=== PATIENT | male | born 1950 | race Caucasian/White ===

== ENCOUNTER 2020-07-11 10:55 | Emergency (ER) | payer OTHER, SELFPAY ==
[2020-07-11 10:55] VITALS: BP 178/96; PULSE 86; RESP 18; TEMP 36; O2SAT 96; BMI 21.5
[2020-07-11 11:55] VITALS: RESP 15
--- NOTE | 2020-07-11 12:08 | ED.VISSUMM ---
- ER Visit Summary Date of Service: 07/11/20 Chief Complaint: Agitated History of Present Illness: The patient is a 70 M who goes to the [place] [facility]. He has a history of schizophrenia and bipolar disorder. Patient reports that he is overtired and not sleeping well. He has been fighting with his . He denies any suicidal or homicidal ideation. No auditory visual hallucinations. Review of systems: General: No fever, chills, cold sweats. Cardiovascular: No chest pain, palpitations. Respiratory: No cough, shortness of breath, dyspnea on exertion. Gastrointestinal: No abdominal pain, nausea, vomiting, diarrhea, melena, or hematochezia. Genitourinary: No dysuria, frequency, hematuria. Skin: No rash. Neuro: No headache, numbness, weakness. Physical Examination: Vitals: Stable. Afebrile. General: Well-nourished and well-developed. Head: Normocephalic atraumatic. Neck: Supple, no lymphadenopathy. No JVD. Nontender. Cardiovascular: Regular rate and rhythm. No murmurs. Respiratory: No respiratory distress. Clear to auscultation bilaterally. Abdominal: Soft, nontender, nondistended, normal bowel sounds. No guarding, rebound, or peritoneal signs. Back: Nontender. Extremities: Nontender, no edema. Skin: Normal color, no rash. Neurologic: Alert and oriented ?3. Cranial nerves II through XII are intact. Normal strength and sensation. Mental status exam: Patient appears their stated age. Good posture and grooming. Good eye contact. Normal rate, volume, and latency of speech. No suicidal or homicidal ideation. No auditory or visual hallucinations. Flow of thought is logical. Insight and judgment is fair. Emergency Department Course and Treatment: Patient is resting comfortably and has eaten while here. He was seen by case management and they contacted his as well as his nurse through the [place]. There is no indication for pink slip and the patient would like to go home. Treatment Plan: Patient be discharged instructions to take his medicines as prescribed. Follow-up with his primary care physician as needed. Return to the emergency department for any worsening symptoms. Disposition: To home in improved and stable condition. Impression: One. Bipolar disorder. 2. Schizophrenia. This note was generated with [employer] software. It may contain incorrect words, spelling, and punctuation that were not noted in review of the chart prior to signing ED Disposition - Plan for ED Patient: Instructions: ED Depression [facility]: [facility] [Primary [facility] Provider] - As Needed
--- NOTE | 2020-07-11 12:13 | CM.ED ---
Social Work Consult: Depression Informant: Dr. Oliva Chief Complaint: my and I fight all the time. Marital/Social History: to Nay Bains for the past 37 years. Has an adult son, Jaxon Bains. Living Situation: Lives with spouse and Jaxon Mendoza Support/Resources: Active with [facility] for mental health services. Dr. Dubon is patient psychiatrist. Patient mental health nurse is Ham. Education/Employment History: Retired. Denies any issues with comprehension or understanding. 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 Honorable discharge. 100% services connected. Mental Health Treatment/History: Schizophrenia. Reports to take medication to manage mental health. Patient reports to be compliant with medication. Patient spouse reports concerns that patient is taking medication. Patient reports history of inpatient psychiatric placement with last psychiatric placement being years ago. Triggers/Stressors: Patient reports that patient spouse gets me worked up. Patient states to also get frustrated with patient son. Patient spouse recently diagnosed with cancer and reportedly has 2 years to live. Substance Abuse/use: Reports daily tobacco use (1 ppd) and daily alcohol us 2-3 beers daily. Patient denies any other substance abuse/use. Risk to Self/Othes: Patient denies suicidal thoughts, plans, intents. Patient denies any history of suicidal ideation or harm to self. Patient denies any thoughts, plans or intents to harm others. Mental Status Exam: A&Ox3 Appearance/General Behavior: Appropriate. Clean. Anxious. Directable. Mood/Affect: Anxious. Patient declined to sit down as I am nervous about what is going to happen. Communication Pattern: Responds to questions. Initiates conversation. Thought Process: Denies any V/A hallucinations or paranoia. Judgement: Fair Assessment: Met with patient in room. Introduced self and social worker health services role. Patient agreeable to speak with this social worker health services. Patient brought by police to emergency room today for mental health evaluation due to patient son reporting that patient has not been taking patient medication. Patient reports to be taking medication and to be doing fine. Patient denies any current concerns for patient ability to care for self. Patient is agreeable to this social worker health services speaking with patient spouse but in the presence of patient. Patient calling patient spouse, Nay on phone and putting Nay on speaker phone. Nay voiced concerns that patient is not taking medication and getting frustrated. Nay denies any harm to self or others in the home by patient. Nay confirms that patient is connected with community resources for mental health and that there has been a recent change in patient medication. Nay reports [facility] and was advised to have patient brought to the ED for an evaluation as per Nay patient has not been sleeping or eating. Patient currently eating and drinking a sandwich in patient room. Patient is agreeable to this social worker health services calling patient nurse, Ham through the [place]. This social worker health services did note that patient did become more agitated when speaking with Nay but was able to control self and maintain appropriate conversation with this social worker health services and Nay. Telephone call to Ham. Ham reports no further information than above accept that there appears to be a toxic relationship between patient and patient family. Ham denies any current concerns for patient or others safety. Ham reports that patient presents as taken care of and respectful when speaking with Ham over the past few weeks. Ham with no immediate concerns or reason for patient to be admitted to inpatient psychiatric hospital currently. Ham did confirm to have spoken with Nay this morning and advised to have patient brought to the ED to have an evaluation as per Nay patient has been acting out over the past few weeks. Ham aware of current medication changes and has been checking in with patient often via phone. This social worker health services collaborating with Dr. Oliav. Dr. Oliva not finding any reason for patient to be pink slipped as patient denies any suicidal or homicidal thoughts, plans, intents. Patient also presenting as appropriate. Patient family able to provide situations where patient is yelling at family members but does not appear to be to the point where patient would require inpatient psychiatric placement for stabilization. This social worker health services going back to speak with patient. Patient comfortable with plan to return to the community. This social worker health services inquired if patient has transportation to home. Patient reports to have friend to call for a ride home. This social worker health services also inquired if patient has any other place that patient is able to currently stay as patient and patient family appear to not be getting along. Patient reports to have own vehicle and to have some money. Patient reports to have own room and plans to just stay in my room for awhile. Patient reports to have assess to food and a warm place to stay. Patient able to provide this social worker health services with 1-800 number for any suicidal thoughts or an increase in agitation. Patient aware of [place] ([phone]). Patient counseled on lethal means. Patient does report to have a firearm in the home but it is not mine. Patient reports that firearm is locked up. Patient denies any concerns on returning to home. Active support and listening provided. Medical team all agreeable to plan. PLAN: Discharge to community. Gertrudis AGUIRRE, SHANNAN
[2020-07-11 12:15] VITALS: PULSE 89; RESP 16; O2SAT 97
--- NOTE | 2020-07-11 13:38 | CM.ED ---
Social Work Telephone call from patient spouse, Nay. Nay inquired about status of patient. Nay updated that patient was discharged to the community and reported to have transportation to home. Nay confirms that patient would have a ride home and I will go get him. Nay voiced frustration that patient was discharged to the community but voiced understanding as to why patient was discharged to home. Gertrudis Roca MSW, SHANNAN
== END 2020-07-11 12:16 | disposition home or self-care (01) ==
LOC: ED 11:51
PROVIDERS: Emergency Provider Emergency Medicine
DX: F31.9 Bipolar disorder, unspecified (principal); F20.9 Schizophrenia, unspecified; Z63.0 Problems in relationship with spouse or partner
CPT/HCPCS: 99282

== ENCOUNTER 2020-07-15 11:52 | Emergency (ER) | payer OTHER, SELFPAY ==
[2020-07-15] VITALS (10 sets, daily range): BP systolic 160–168; BP diastolic 94–105; PULSE 83–89; RESP 14–18; TEMP 36.5–36.8; O2SAT 97–98; BMI 22.4
--- NOTE | 2020-07-15 11:56 | EKG12_ITS ---
Test Reason : Blood Pressure : / mmHG Vent. Rate : 081 BPM Atrial Rate : 081 BPM P-R Int : 140 ms QRS Dur : 094 ms QT Int : 392 ms P-R-T Axes : 082 075 072 degrees QTc Int : 455 ms Normal sinus rhythm Normal ECG Confirmed by ALDA BONILLA, NABEEL ([id number]), movie editor KIERAN ALLRED ([id number]) on 07/21/2020 2:15:51 PM Referred By: PARADISE Confirmed By:NABEEL LIZAMA MD
--- NOTE | 2020-07-15 12:00 | NURSING ---
NO OLD EKGS
--- NOTE | 2020-07-15 12:10 | ED.DCSUM_ITS ---
- ER Visit Summary Date of Service: 07/15/20 Chief Complaint: I do not know why I am here. Someone is concerned about my health. History of Present Illness: The patient is a 70 M Jacquie a past medical history of psychiatric disorder possibly schizophrenia and bipolar. Patient sees a [facility] and when I walk in the room he is actually on the phone with them. States has had recent med changes. He does not know why he is here. He said someone called the police and they brought him in from his home. He denies being suicidal or homicidal. He lives at home with his and son and reportedly his has terminal cancer. Going to our forensic social worker the family has been calling crisis about the patient since he was recently discharged from an ER evaluation for depression. They state he is talking and yelling at people that are not there. And they think he needs help. Physical Examination: Elderly male sitting on a chair on his cell phone. Vital signs are stable afebrile. He does not look septic or toxic. There is no obvious smell of alcohol or any signs of any obvious toxidrome. H EENT exam unremarkable. Neck nontender no lymphadenopathy. Lungs clear to auscultation bilaterally. Heart regular rhythm no murmur. Rate is about 90. Abdomen soft and nontender. Normal bowel sounds. No peritoneal signs. Patient moving all 4 extremities. Neurovascularly intact. Good motor strength in both upper and lower extremities. 5 out of 5 administrative assistant coordinator strength. No edema in his legs. Neurologically is awake and alert. He has no focal motor deficits. He is acting appropriately. He is making eye contact. He is answering questions. Test Results: CBC normal white count 8 hemoglobin 15. Chemistries normal normal creatinine and gap. UA is 100+ white cells but no red cells 1+ bacteria no nitrates I sent a culture but not been treated. Tox screen positive for cannabis. Alcohol normal. CT of the brain is read by the radiologist and reviewed by me shows no acute abnormality. Emergency Department Course and Treatment: Older male brought in from home by police reported psychiatric history. The officer that actually brought him is not here there is another officer here that has less of the history. Patient was seen here for depression a week or so ago. Treatment Plan: house worker is working to get the placement placed in a psychiatric facility. Disposition: Answer to a psychiatric facility. Impression: Exacerbation of underlying psychiatric illness History of psychiatric disorder Medically cleared by the emergency department physician This note was generated with [employer] dictation software. It may contain incorrect words, spelling, and punctuation that were not noted in review of the chart prior to signing ED Disposition - Plan for ED Patient: [facility] [Primary [facility] Provider] -
--- NOTE | 2020-07-15 12:26 | CT_ITS ---
STUDY: CT BRAIN WITHOUT CONTRAST REASON FOR EXAM: Male, 70 years old. ms change RADIATION DOSAGE (If Supplied By Facility): CTDIvol = ( 44.99 ) mGy, DLP = ( 1524.73 ) mGycm TECHNIQUE: Transaxial CT imaging of the brain was performed without administration of intravenous contrast material. Individualized dose optimization techniques were used for this CT. COMPARISON: No relevant priors. FINDINGS: Normal soft tissue structures. Normal calvarium. Normal size ventricles and extra-axial spaces for the patient''s age. Normal white matter tracts of the cerebral hemispheres. Normal basal ganglia and thalami. Normal brainstem. Normal cerebellum. There is no intracranial hemorrhage. There are no findings of an acute ischemic infarction. Normal visualized paranasal sinuses. CT/Brain/Head without Contrast IMPRESSION: Normal unenhanced CT scan of the brain. Electronically Signed: Saeed Anaya MD at 13:25 EST Tel , Service support ,
[2020-07-15 12:37] LABS: Mucous, Urine 0 SEEN /hpf (<or=2+); Red Blood Cells-Urine 0 SEEN /hpf (0-5); Squamous Epithelial Cells - UA 0 SEEN /hpf (0-5)
[2020-07-15 12:44] LABS: Absolute Lymphocyte Count 2.26 X10^3/uL (0.83-4.51); Absolute Neutrophil Count 4.9 X10^3/uL (2.0-7.7); Basophil# 0.06 X10^3/uL; Basophil% 0.7 % (0-1); Eosinophil# 0.24 X10^3/uL; Eosinophils% 2.8 % (0-5); Hemoglobin 15.3 g/dL (13.0-16.5); Lymphocyte # 2.26 X10^3/ul (4.0); Lymphocyte % 26.3 % (19-41); Mean Corpuscular Hgb 30.3 pg (27.0-32.0); Mean Corpuscular Volume 89.1 fL (80-94); Mean Platelet Vol. 9.9 fl (6.2-12.0); Monocyte% 12.8 % (0-10); NRBC Flagged by Analyzer 0 % (0-5); Neutrophil # 4.91 X10^3/uL (2.7-7.7); Neutrophil % 57.2 % (47-70); Platelet Count 232 K/mm3 (150-450); RBC Distribution Width SD 42.4 fl (35.1-43.9); Red Blood Count 5.05 M/mm3 (4.6-6.2); White Blood Count 8.6 K/mm3 (4.4-11.0)
[2020-07-15 12:50] LABS: Color, Urine Yellow (Yellow); Glucose, Dipstick Normal (Normal); Ketone-Dipstick 5 mg/dl (Negative); Leukocyte Esterase-Dipstick 500 /ul (Negative); Nitrite-Dipstick Negative (Negative); Occult Blood-Urine 25 /ul (Negative); Protein-Dipstick 30 mg/dl (Negative); Urine Bilirubin Dipstick Negative (Negative); Urine Clarity Cloudy (Clear); Urine Urobilinogen Normal (Normal)
[2020-07-15 12:53] LABS: Anion Gap 7 (5-15); BUN 14 mg/dL (7-18); BUN/Creat Ratio 15.5 RATIO (10-20); Calcium,Total 9.4 mg/dL (8.5-10.1); Chloride 106 mmol/L (98-107); EST Glomerular Filtration Rate 88 mL/min (>60); Est Glom Filt Rate - Afr Amer 107 mL/min (>60); Estimated Creatinine Clearance 70.32 ml/min; Glucose 99 mg/dL (74-106); Potassium 3.7 mmol/L (3.5-5.1); Sodium Level 139 mmol/L (136-145)
[2020-07-15 12:59] LABS: Bacteria 1+ /hpf (None Seen); White Blood Cells >100 SEEN /hpf (0-5)
[2020-07-15 13:03] LABS: Amphetamine Urine VISTA NEGATIVE (<1000 ng/mL); Barbiturate Urine VISTA NEGATIVE (< 200 ng/mL); Benzodiazepine Urine VISTA NEGATIVE (< 200 ng/mL); Cocaine Urine VISTA NEGATIVE (< 300 ng/mL); Ecstacy Urine VISTA NEGATIVE (< 500 ng/mL); Methadone Urine VISTA NEGATIVE (< 300 ng/mL); PCP Urine VISTA NEGATIVE (< 25 ng/mL); THC Urine VISTA POSITIVE (< 50 ng/mL); Vista UDS pH Range 7
[2020-07-15 13:09] LABS: Alcohol, Blood (Medical)-Serum < 3.0 mg/dL
--- NOTE | 2020-07-15 15:16 | CM.ED ---
SOCIAL WORK ASSESSMENT Informant: Dr. Granados Reason for Consult: Mental Health Evaluation Chief Compliant: Not my normal self. They have been changing my medications and not seeing me due to this pandemic. Marital/Social History: Living Situation: Patient lives home with and son. Support/Resources: [facility]- Dr. Dubon, nurse: Ham [phone] History: [place] Employment History: Retired Mental Health Treatment/History: Schizophrenia, Bipolar Disorder. Patient reports follows with the [facility] in [place]. Patient reports, They have been changing my medications. They messed them up. Triggers/Stressors: Not my normal self. Substance Abuse History: Patient denies any current use. Patient states stopped smoking pot in 1999. Risk to Self/Others: Suicidal- Patient denies any suicidal ideation, plan or intent. Homicidal- Patient denies any homicidal ideation. Patient reports I may threaten, but don't do it. Mental Status Exam: Orientation- A&OX3 Memory- Fair Appearance/General Behavior: clean/appropriate, agitated Mood/Affect: angry, anxious, elevated at times Communication Pattern: responds to questions Thought Process: auditory and visual hallucinations, paranoid Judgment: poor Assessment: Met with patient in room. Introduced role and reason for referral. Patient open to speaking with this worker stating, you are the one that is going to guide this ship. Patient reports, medications have been changed through the [place] and I'm not my normal self. Patient frustrated with this worker's questions reporting I've already answered all this, I don't want to talk about the past. Patient states, I have so many different diagnosis, they said I'm Schizophrenic and Bipolar. Patient states does not feel stable. Patient reports hallucinations. Patient denies any suicidal or homicidal ideation. Collaboration with Dr. Granados who spoke with patient's . reports patient has been angry, paranoid, having hallucinations, and possibly not taking medications. Dr. Granados recommending hospitalization for stabilization. This worker to facilitate placement. Call to Ham with the [facility]. Ham provided this worker with contact information to [place] for assistance with psych transfer. Plan: Referral to inpatient psych for medication stabilization Ana Luisa eMlton, DINING ROOM ATTENDANT, LINTER OPERATOR
--- NOTE | 2020-07-15 15:32 | ED.RN ---
pt was found smoking in restroom. cigarettes were taken and placed into a safe location. in-depth conversation about how unsafe it is to smoke in the hospital and about our hospital policy on smoke free area. pt asked about how long he would be here. pt was informed that we are doing our best to get him out of here. minh cadet, [id number]
--- NOTE | 2020-07-15 15:44 | CM.ED ---
SOCIAL WORK Attempted multiple times to contact [facility] bed coordinator for referral. No answer. Clinical information faxed to [facility] for placement with this worker's contact information. Awaiting call back. Ana Luisa Melton MSW, MOTOR ROOM CONTROLLER
--- NOTE | 2020-07-15 16:43 | CM.ED ---
SOCIAL WORK Clinical information faxed to ER did not go through. Multiple attempts to contact [facility] Transfer Line. Upon 5th attempt, spoke with Danial. Demographic information given and Danial to send information to mattress spring encaser. Awaiting call back at this time. Ana Luisa Melton, AVIATION ORDNANCE OFFICER, MASTER WELDER
--- NOTE | 2020-07-15 17:52 | CM.ED ---
SOCIAL WORK Call to [facility], spoke with Danial. Informed this worker has not received call from binder caser. This worker sent to binder caser's voicemail. Left message, awaiting call back. Ana Luisa Melton MSW, BELT SANDER STONE
--- NOTE | 2020-07-15 18:17 | CM.ED ---
SOCIAL WORK Received call from [facility] manager of case. Clinical information faxed per request. Pending referral and bed availability at this time. Ana Luisa Melton, SHANK BREAKER, NON DESTRUCTIVE TESTING ENGINEER
--- NOTE | 2020-07-15 18:37 | CM.ED ---
SOCIAL WORK Received call from Logan with [facility]. Per Logan, will review clinicals with physician and get back to this worker with accepting information. Ana Luisa Melton, STORM CHASER, DRYWALL PROFESSIONAL
--- NOTE | 2020-07-15 19:02 | CM.ED ---
SOCIAL WORK Received call from Logan with [facility]. Per Logan, patient accepted by Dr. Mathew. Nurse to call report to [phone]. Logan reports will call for transport and update this worker with ETA. Staff updated. Ana Luisa Melton, PATHOLOGY SECRETARY/TRANSCRIPTIONIST, BUTTON FACING MACHINE OPERATOR
--- NOTE | 2020-07-15 19:06 | CM.ED ---
SOCIAL WORK Call to patient's to update on placement to [facility]. Ana Luisa Melton, LOCOMOTIVE ENGINEER DIESEL, SUPERVISOR PIPE JOINTS
--- NOTE | 2020-07-15 19:52 | CM.ED ---
[facility] to [facility] transport for patient. Staff updated.
[2020-07-15] MEDS: LORazepam 1 MG Tablet PO (20:44)
== END 2020-07-16 00:02 ==
PROVIDERS: Emergency Medicine; Emergency Provider Emergency Medicine
DX: F99 Mental disorder, not otherwise specified (principal); Z72.0 Tobacco use
CPT/HCPCS: 70450; 80048; 80307; 81001; 82077; 85025; 87077; 87086; 87088; 87426; 93005; 99285

== ENCOUNTER 2021-12-08 00:46 | Emergency (ER) | payer OTHER, SELFPAY ==
[2021-12-08] VITALS (11 sets, daily range): BP systolic 92–166; BP diastolic 57–83; PULSE 57–84; RESP 10–20; TEMP 35.9–36.6; O2SAT 96–98; BMI 23.4
--- NOTE | 2021-12-08 00:52 | CT_ITS ---
INDICATION: Neuro deficit, acute, stroke suspected EXAMINATION: CT BRAIN - CT Head Stroke Protocol W/O Contrast Injection TECHNIQUE: Multiple axial images were obtained of the head without intravenous contrast. A radiation dose optimization technique was used for this scan. IV Contrast dosage and agent: None. COMPARISON: July 15, 2021 FINDINGS: BRAIN PARENCHYMA: No intra- or extra-axial hemorrhage. Romero-white matter differentiation is preserved. No intracranial mass or mass effect. There is mild periventricular and subcortical chronic small vessel white matter ischemic change. Posterior fossa structures are unremarkable. Bilateral carotid and vertebral atherosclerosis. CSF SPACES: There is mild global cerebral volume loss. No hydrocephalus. Basal cisterns are patent. CALVARIUM, SKULL BASE, PARANASAL SINUSES AND MASTOID AIR CELLS: Scattered mild paranasal sinus mucoperiosteal thickening. No discrete lytic or blastic abnormalities. ORBITS: Both globes, extraocular muscles, optic nerves and retrobulbar fat appear unremarkable. ASPECTS Score for Acute Strokes: 10 CT/STROKE Brain/Head without Cont IMPRESSION: No evidence of acute intracranial hemorrhage or injury. Atherosclerosis with mild senescent changes as above. N.B. : The above Results were Read Back by Claudio Peralta MD to Lamonte Rivero MD, and understanding confirmed on 12/08/2021 01:14:08 (ET). Electronically Signed: Claudio Peralta MD at 1:15 EDT ,
--- NOTE | 2021-12-08 00:52 | EKG12_ITS ---
Test Reason : DYSRHYTHMIA Blood Pressure : / mmHG Vent. Rate : 069 BPM Atrial Rate : 069 BPM P-R Int : 156 ms QRS Dur : 094 ms QT Int : 438 ms P-R-T Axes : 071 016 050 degrees QTc Int : 469 ms Normal sinus rhythm Normal ECG Confirmed by ALDA BONILLA, NABEEL ([id number]), supervising editor news reel KIERAN ALLRED ([id number]) on 12/08/2021 11:44:08 AM Referred By: GABRIEL Confirmed By:NABEEL LIZAMA MD
--- NOTE | 2021-12-08 00:52 | RAD_ITS ---
STUDY: X-RAY CHEST REASON FOR EXAM: Male, 71 years old patient with acute neurologic deficit. Acute, stroke suspected. TECHNIQUE: Single AP portable view of the chest. COMPARISON: Prior comparison studies are not available for review at this time. FINDINGS: The lungs are expanded. There is suggestion for a left basilar retrocardiac airspace disease suggesting pneumonia. There is no demonstrated pleural abnormality. Normal size heart. Normal mediastinum and jennifer. There is prominence of the pulmonary hilar arteries without peripheral pulmonary vascular congestion, suggesting pulmonary hypertension. There is atherosclerotic calcification of the aortic arch with tortuosity. There is demineralization of the osseous structures. Normal visualized ribs, clavicles, and shoulders. There is no demonstrated abnormality of the visualized soft tissue structures of the upper abdomen. RAD/Chest 1 View IMPRESSION: Possible left basilar pneumonia. Electronically Signed: Franchesca Dubon MD at 2:29 EDT ,
--- NOTE | 2021-12-08 00:53 | CT_ITS ---
STUDY: CTA HEAD AND NECK WITH CONTRAST REASON FOR EXAM: Male, 71 years old patient with acute neurologic deficit. Acute stroke suspected. RADIATION DOSAGE (If Supplied By Facility): CTDIvol = ( 20.02 ) mGy, DLP = ( 827.07 ) mGycm TECHNIQUE: CT angiography was performed with a multi-detector CT scanner. Data acquisition was obtained from the skull base through the vertex following intravenous administration of 100 ml of Isovue 300. MIP images were reconstructed from the axial data set. Post-processing of the angiographic images was performed, with multiplanar reformation and 3D reconstruction. Individualized dose optimization techniques were used for this CT. COMPARISON: No relevant priors. FINDINGS: Normal bilateral petrous carotid arteries. Normal right cavernous carotid artery with a normal supraclinoid bifurcation. Normal left cavernous carotid artery with a normal supraclinoid bifurcation. Normal right A1 segments of the anterior cerebral artery. Normal left A1 segments of the anterior cerebral artery. There is non-visualization of the anterior communicating artery (ACOM). Only one A2 segment is visualized suggesting possible azygous variant. There is irregularity of the right M1 and M2 branches with minimal luminal narrowing, suggesting atherosclerotic plaque formation, without an occlusion. There is irregularity of the left M1 and M2 branches with minimal luminal narrowing, suggesting atherosclerotic plaque formation, without an occlusion. There is non-visualization of the right posterior communicating artery (PCOM). There is non-visualization of the left posterior communicating artery (PCOM). Normal bilateral vertebral arteries. Normal basilar artery with a normal basilar bifurcation. The visualized bilateral superior cerebellar (SCA) arteries are normal. Normal bilateral P1, P2 and visualized P3 segments of the posterior cerebral arteries. There is no demonstrated aneurysm of the [place]. There is no demonstrated abnormality of the visualized brain. AORTIC ARCH: There is atherosclerotic calcification of the thoracic aorta. Normal origins of the brachiocephalic, left common carotid, and left subclavian arteries. RIGHT CAROTID ARTERIES: Normal right common carotid artery (CCA). There is mild atherosclerotic plaque formation with minimal narrowing of the right carotid bulb. There is motion artifact at the level of the carotid bulb. Normal origin of the right internal carotid (ICA) artery without a hemodynamically significant stenosis. Normal visualized cervical portion of the right internal carotid artery. Normal origin of the right external carotid artery (ECA). LEFT CAROTID ARTERIES: Normal left common carotid artery (CCA). There is mild atherosclerotic plaque formation with minimal narrowing of the left carotid bulb. There is motion artifact at the left carotid bulb. Normal origin of the left internal carotid (ICA) artery without a hemodynamically significant stenosis. Normal visualized cervical portion of the left internal carotid artery. Normal origin of the left external carotid artery (ECA). VERTEBRAL ARTERIES: There are several images of the cervical vertebral arteries that are nondiagnostic secondary to patient motion. NECK ANATOMY: There are patchy lucencies of the lung apices probably secondary to centrilobular emphysema. Lungs appear to be clear. The thyroid has a grossly normal appearance. The visualized parotid and submandibular glands have a grossly normal appearance. Nasopharynx, oropharynx, hypopharynx and larynx are grossly normal appearance. There are multilevel degenerative changes of the cervical spine. Bones appear osteopenic. Patient is edentulous. CT/STROKE CTA Head AND Neck W/Con IMPRESSION: 1. Bilateral cervical vertebral arteries are not clearly seen on this study secondary to motion artifact. 2. No CT evidence for thrombosis or hemodynamically significant stenosis of the common carotid or cervical internal carotid arteries. 3. No CT evidence for intracranial hemodynamically significant stenosis, thrombosis or aneurysm. N.B. : The above Results were Read Back by Franchesca Dubon MD to Dr. Mat MD, and understanding confirmed on 12/08/2021 01:37:31 (ET). Electronically Signed: Franchesca Dubon MD at 1:41 EDT ,
[2021-12-08 01:00] LABS: Absolute Lymphocyte Count 2.54 X10^3/uL (0.83-4.51); Absolute Neutrophil Count 2.2 X10^3/uL (2.0-7.7); Basophil# 0.03 X10^3/uL; Basophil% 0.5 % (0-1); Eosinophil# 0.11 X10^3/uL; Hemoglobin 13.3 g/dL (13.0-16.5); Lymphocyte # 2.54 X10^3/ul (0.83-4.51); Lymphocyte % 46.4 % (19-41); Mean Corpuscular Hgb 29.8 pg (27.0-32.0); Mean Corpuscular Volume 85.2 fL (80-94); Mean Platelet Vol. 10.3 fl (6.2-12.0); Monocyte# 0.56 X10^3/uL; Monocyte% 10.2 % (0-10); NRBC Flagged by Analyzer 0 % (0-5); Neutrophil # 2.22 X10^3/uL (2.7-7.7); Neutrophil % 40.7 % (47-70); Platelet Count 190 K/mm3 (150-450); RBC Distribution Width CV 12.3 % (11.6-14.6); RBC Distribution Width SD 38.4 fl (35.1-43.9); Red Blood Count 4.46 M/mm3 (4.6-6.2); White Blood Count 5.5 K/mm3 (4.4-11.0)
--- NOTE | 2021-12-08 01:09 | ED.RN ---
osu called at this time
[2021-12-08 01:13] LABS: International Normalized Ratio 1.1; Partial Thromboplast Time 27.9 Seconds (24.1-36.2); Prothrombin Time (Protime)PT. 13.7 SECONDS (11.7-14.9)
[2021-12-08 01:19] LABS: Anion Gap 6 (5-15); BUN 14 mg/dL (7-18); Calcium,Total 9.1 mg/dL (8.5-10.1); Chloride 107 mmol/L (98-107); EST Glomerular Filtration Rate 78 mL/min (>60); Est Glom Filt Rate - Afr Amer 95 mL/min (>60); Estimated Creatinine Clearance 69.96 ml/min; Glucose 159 mg/dL (74-106); Potassium 4.4 mmol/L (3.5-5.1); Sodium Level 140 mmol/L (136-145); Troponin-I HS 7 pg/mL (3.0-78.0)
--- NOTE | 2021-12-08 01:22 | EX.ED.DYSGE1 ---
HPI History of Present Illness Chief Complaint: Neuro S/Sx Narrative Narrative: Patient presents via EMS with possible strokelike symptoms. They state last known well time was approximately an hour ago. He is having difficulty following commands. They are not sure if he is having left-sided weakness. This is more of a mental status change according to them. His history and physical is limited secondary to patient condition. [facility] Medical History unable to obtain Home Medications benztropine 2 mg tablet 1 mg PO BID 07/15/20 [History Last Taken Unknown] divalproex 500 mg tablet,delayed release 2,000 mg PO QHS 07/15/20 [History Last Taken Unknown] hydroxyzine HCl 10 mg tablet 10 mg PO BID 07/15/20 [History Last Taken Unknown] perphenazine 8 mg tablet 8 mg PO QHS 07/15/20 [History Last Taken Unknown] finasteride 5 mg tablet 5 mg PO DAILY 12/08/21 [History Last Taken Unknown] propranolol 10 mg tablet 10 mg PO BID 12/08/21 [History Last Taken Unknown] tamsulosin 0.4 mg capsule 0.4 mg PO QHS 12/08/21 [History Last Taken Unknown] Allergy/AdvReac Type Severity Reaction Status Date / Time trifluoperazine Allergy Other Verified 07/15/20 11:55 [From Stelazine] Family History unable to obtain Surgical History unable to obtain Social History Smoking Status: Current every day smoker tobacco type: cigarettes ROS ROS ED ROS Narrative Unable to obtain review of systems secondary to current mental status. Review of Systems ROS Unobtainable: due to mental status EXAM Physical Exam Narrative Exam Narrative: Afebrile. Vital signs noted. Unkempt. HEENT: Normocephalic. Atraumatic. PERRL, EOMI. Neck soft and supple. No point tenderness or step off. Cardiovascular: Regular rate and rhythm. No murmurs, rubs, or gallops appreciated. Respiratory: No tachypnea. Lungs clear to auscultation bilaterally. Gastrointestinal: Abdomen soft, nontender, with normoactive bowel sounds. No rebound or guarding. Neurological: Awake. Alert. Can state name. Intermittently will follow commands. Moving all extremities. Inconsistent NIH stroke scale. Bilateral arm drift on initial examination. Bilateral leg weakness. Skin: No rash. Normal color. No pallor. Musculoskeletal: No pedal edema. Full range of motion extremities. Const Vital Signs: 12/08/21 01:11 12/08/21 01:16 12/08/21 01:22 Temperature 97.8 F Temperature Source Temporal Pulse Rate 81 71 Respiratory Rate 16 17 Blood Pressure 165/83 H 165/83 H Blood Pressure Mean 110 110 Pulse Ox 98 97 Oxygen Delivery Method Room Air Room Air Room Air 12/08/21 01:30 12/08/21 01:56 12/08/21 02:00 Temperature 97.6 F L Temperature Source Temporal Pulse Rate 66 74 Respiratory Rate 10 L 10 L Blood Pressure 166/76 H 121/67 H Blood Pressure Mean 106 85 Pulse Ox 97 97 Oxygen Delivery Method Room Air Room Air 12/08/21 02:00 12/08/21 02:30 12/08/21 03:00 Temperature 97.3 F L 97.2 F L Temperature Source Core Core Pulse Rate 74 64 74 Respiratory Rate 12 10 L 14 Blood Pressure 121/67 H 97/62 92/57 L Blood Pressure Mean 85 73 68 Pulse Ox 98 97 98 Oxygen Delivery Method Room Air Room Air Room Air 12/08/21 03:00 12/08/21 03:40 12/08/21 04:17 Temperature 97.2 F L 96.7 F L Temperature Source Core Core Pulse Rate 80 72 57 L Respiratory Rate 20 H 13 12 Blood Pressure 92/57 L 156/83 H 117/68 Blood Pressure Mean 68 107 84 Pulse Ox 98 97 96 Oxygen Delivery Method Room Air Room Air Room Air MDM MDM MDM Narrative Medical decision making narrative: Stroke team had been initiated initially and activated by EMS. However, his exam is inconsistent and bilateral, so I do not feel that this is a focal deficit on his examination. CT of the brain discussed with radiology, and shows no acute process. In looking at his medications, he takes benztropine, divalproex, finasteride, hydroxyzine, and perphenazine. These may be more related to psychiatric medications. I do not feel that he is a tPA candidate. His CBC shows normal white count of 5.5, hemoglobin 13.3, hematocrit 38.0, platelet count of 190. Coagulation studies are negative. CMP/BMP shows normal electrolytes with a normal BUN of 14 and a creatinine of 1.0. CTA of the head and neck shows no acute occlusion, but the radiologist did state that there was motion artifact. I discussed the patient with the on-call [facility] neurologist, Dr. Bowman. She did think that maybe the patient was seizing. It was unsure if there were areas of subacute infarct on his CT of the brain. She confirmed that tPA was not to be given. There is also the possibility that patient may be having continuous seizures. She suggested adding ammonia level, as valproic acid had already been ordered and is pending. She would like Keppra 20 mg/kg bolused to see if this changes his mental status at all. She was able to contact the patient's relative who states that he has past psychiatric history of schizophrenia which is why he takes divalproex. He may have doubled his medication today. Valproic acid level is slightly above the high end of normal at 116, but I do not think that his mental status changes and his examination that is inconsistent is solely secondary to an overdose of valproic acid. It was felt that the patient will need higher level of monitoring, and the neurologist is requesting that he be transferred to the [facility]. They requested UA, urine tox, and LFTs. His LFTs are actually on the lower end, and not elevated. Urine tox is negative. Urinalysis shows no evidence of infection. High-sensitivity troponin is negative at 7. He does have an elevated ammonia level. It is elevated at 243. NG tube was inserted. He was administered 40 mL of lactulose for his encephalopathy. KUB was obtained for NG tube placement which I interpreted. It is in the correct position. Additionally, he had a chest x-ray which shows no acute process. I interpreted his chest x-ray and did not appreciate a pneumonia. However, radiology suggested that there may be a lower lobe pneumonia. However, he does not have a fever or an elevated white count so I have deferred antibiotics. Given that he has not had improvement in his mental status, I do feel that he requires transfer. Patient has been accepted by the ED physician at the [facility], Dr. Lerner according to their transfer line. Disposition is transferred in stable condition. Lab Data Attestation: I reviewed the patient's lab results. Labs: Laboratory Results - last 24 hr 12/08/21 12/08/21 12/08/21 00:49 00:49 00:49 WBC 5.5 RBC 4.46 L Hgb 13.3 Hct 38.0 L MCV 85.2 MCH 29.8 MCHC 35.0 RDW Std Deviation 38.4 RDW Coeff of Edi 12.3 Plt Count 190 MPV 10.3 Immature Gran % (Auto) 0.200 Neut % (Auto) 40.7 L Lymph % (Auto) 46.4 H [place] % (Auto) 10.2 H Eos % (Auto) 2.0 Baso % (Auto) 0.5 Absolute Neuts (auto) 2.2 Absolute Lymphs (auto) 2.54 Nucleated RBC % 0 PT 13.7 INR 1.1 APTT 27.9 Sodium 140 Potassium 4.4 Chloride 107 Carbon Dioxide 27.0 Anion Gap 6 BUN 14 Creatinine 1.00 Estim Creat Clear Calc 69.96 Est GFR (MDRD) Af Amer 95 Est GFR (MDRD) Non-Af 78 BUN/Creatinine Ratio 14.0 Glucose 159 H Calcium 9.1 Total Bilirubin Direct Bilirubin AST ALT Alkaline Phosphatase Ammonia Troponin I High Sens 7 Total Protein Albumin Globulin Urine Color Urine Clarity Urine pH Ur Specific [place] Urine Protein Urine Glucose (UA) Urine Ketones Urine Occult Blood Urine Nitrite Urine Bilirubin Urine Urobilinogen Ur Leukocyte Esterase Urine RBC Urine WBC Ur Squamous Epith Cells Urine Bacteria Urine Mucus Urine Opiates Screen Urine Methadone Screen Ur Barbiturates Screen Valproic Acid Ur Phencyclidine Scrn Ur Amphetamines Screen MDMA (Ecstasy) Screen U Benzodiazepines Scrn Urine Cocaine Screen U Cannabinoids Screen Ur Drug Screen Comment 12/08/21 12/08/21 12/08/21 01:29 02:10 02:10 WBC RBC Hgb Hct MCV MCH MCHC RDW Std Deviation RDW Coeff of Edi Plt Count MPV Immature Gran % (Auto) Neut % (Auto) Lymph % (Auto) [place] % (Auto) Eos % (Auto) Baso % (Auto) Absolute Neuts (auto) Absolute Lymphs (auto) Nucleated RBC % PT INR APTT Sodium Potassium Chloride Carbon Dioxide Anion Gap BUN Creatinine Estim Creat Clear Calc Est GFR (MDRD) Af Amer Est GFR (MDRD) Non-Af BUN/Creatinine Ratio Glucose Calcium Total Bilirubin Direct Bilirubin AST ALT Alkaline Phosphatase Ammonia Troponin I High Sens Total Protein Albumin Globulin Urine Color Yellow Urine Clarity Clear Urine pH 6.5 Ur Specific [place] 1.015 Urine Protein Negative Urine Glucose (UA) Normal Urine Ketones 5 H Urine Occult Blood Negative Urine Nitrite Negative Urine Bilirubin Negative Urine Urobilinogen Normal Ur Leukocyte Esterase Negative Urine RBC 0 SEEN Urine WBC 0 SEEN Ur Squamous Epith Cells 0 SEEN Urine Bacteria 0 SEEN Urine Mucus 0 SEEN Urine Opiates Screen NEGATIVE Urine Methadone Screen NEGATIVE Ur Barbiturates Screen NEGATIVE Valproic Acid 116 H Ur Phencyclidine Scrn NEGATIVE Ur Amphetamines Screen NEGATIVE MDMA (Ecstasy) Screen NEGATIVE U Benzodiazepines Scrn NEGATIVE Urine Cocaine Screen NEGATIVE U Cannabinoids Screen NEGATIVE Ur Drug Screen Comment 12/08/21 12/08/21 02:11 02:11 WBC RBC Hgb Hct MCV MCH MCHC RDW Std Deviation RDW Coeff of Edi Plt Count MPV Immature Gran % (Auto) Neut % (Auto) Lymph % (Auto) [place] % (Auto) Eos % (Auto) Baso % (Auto) Absolute Neuts (auto) Absolute Lymphs (auto) Nucleated RBC % PT INR APTT Sodium Potassium Chloride Carbon Dioxide Anion Gap BUN Creatinine Estim Creat Clear Calc Est GFR (MDRD) Af Amer Est GFR (MDRD) Non-Af BUN/Creatinine Ratio Glucose Calcium Total Bilirubin 0.40 Direct Bilirubin 0.12 AST 9 L ALT 11 L Alkaline Phosphatase 61 Ammonia 243.0 H Troponin I High Sens Total Protein 5.8 L Albumin 2.9 L Globulin 2.9 Urine Color Urine Clarity Urine pH Ur Specific [place] Urine Protein Urine Glucose (UA) Urine Ketones Urine Occult Blood Urine Nitrite Urine Bilirubin Urine Urobilinogen Ur Leukocyte Esterase Urine RBC Urine WBC Ur Squamous Epith Cells Urine Bacteria Urine Mucus Urine Opiates Screen Urine Methadone Screen Ur Barbiturates Screen Valproic Acid Ur Phencyclidine Scrn Ur Amphetamines Screen MDMA (Ecstasy) Screen U Benzodiazepines Scrn Urine Cocaine Screen U Cannabinoids Screen Ur Drug Screen Comment Radiography Diagnostic Testing: Clinical Impression(s) from Imaging Studies Brain CT 12/08/21 00:52 IMPRESSION: No evidence of acute intracranial hemorrhage or injury. Atherosclerosis with mild senescent changes as above. N.B. : The above Results were Read Back by Claudio Peralta MD to Lamonte Rivero MD, and understanding confirmed on 12/08/2021 01:14:08 (ET). Electronically Signed: Claudio Peralta MD at 1:15 EDT Reading Location ID and State: [facility] / [place] Tel , Service support , ADDENDUM: 12/08/21 0122 IMPRESSION: No evidence of acute intracranial hemorrhage or injury. Atherosclerosis with mild senescent changes as above. N.B. : The above Results were Read Back by Claudio Peralta MD to Lamonte Rivero MD, and understanding confirmed on 12/08/2021 01:14:08 (ET). Electronically Signed: Claudio Peralta MD at 1:15 EDT , Chest X-Ray 12/08/21 00:52 IMPRESSION: Possible left basilar pneumonia. Electronically Signed: Franchesca Dubon MD at 2:29 EDT , Head/Neck CTA 12/08/21 00:53 IMPRESSION: 1. Bilateral cervical vertebral arteries are not clearly seen on this study secondary to motion artifact. 2. No CT evidence for thrombosis or hemodynamically significant stenosis of the common carotid or cervical internal carotid arteries. 3. No CT evidence for intracranial hemodynamically significant stenosis, thrombosis or aneurysm. N.B. : The above Results were Read Back by Franchesca Dubon MD to Dr. Mat MD, and understanding confirmed on 12/08/2021 01:37:31 (ET). Electronically Signed: Franchesca Dubon MD at 1:41 EDT , ADDENDUM: 12/08/21 0148 IMPRESSION: 1. Bilateral cervical vertebral arteries are not clearly seen on this study secondary to motion artifact. 2. No CT evidence for thrombosis or hemodynamically significant stenosis of the common carotid or cervical internal carotid arteries. 3. No CT evidence for intracranial hemodynamically significant stenosis, thrombosis or aneurysm. N.B. : The above Results were Read Back by Franchesca Dubon MD to Dr. Mat MD, and understanding confirmed on 12/08/2021 01:37:31 (ET). Electronically Signed: Franchesca Dubon MD at 1:41 EDT , KUB X-Ray 12/08/21 03:04 IMPRESSION: Tip of the enteric tube projects over the gastric fundus. Electronically Signed: Mauricio Hastings MD at 4:04 EDT , Critical Care Time Critical care time (excluding procedures): 30-74 minutes (32 minutes), Including time spent:, Discussing w/Consultants, Arranging Admission or Transfer and Performing Direct Patient Care at Bedside Discharge Plan Triage Chief Complaint: Neuro S/Sx ED Provider: Lamonte Rivero Dx/Rx/DC Orders Clinical Impression: Encephalopathy, Schizophrenia, Change in mental status, Generalized weakness Prescriptions: No Action divalproex 500 MG tablet,delayed release (DR/EC) 2,000 mg PO QHS benztropine 2 MG tablet 1 mg PO BID perphenazine 8 MG tablet 8 mg PO QHS hydroxyzine HCl 10 MG tablet 10 mg PO BID propranolol 10 mg Tablet 10 mg PO BID tamsulosin 0.4 mg Capsule 0.4 mg PO QHS finasteride 5 mg Tablet 5 mg PO DAILY [facility] [facility] [facility] [Primary Care Provider] -
--- NOTE | 2021-12-08 01:25 | ED.RN ---
osu beaming in
[2021-12-08] MEDS: 0.9% Normal Saline 1,000 ML 100 ML IV (01:27)
--- NOTE | 2021-12-08 01:27 | ED.RN ---
osu attempting to beam in having technical issues at this time
[2021-12-08 02:07] LABS: Valproic Acid (Depakene) Level 116 ug/mL (50-100)
--- NOTE | 2021-12-08 02:15 | ED.RN ---
osu to contact family and discuess care and concern of time line of event
[2021-12-08 02:55] LABS: Bacteria 0 SEEN /hpf (None Seen); Mucous, Urine 0 SEEN /hpf (<or=2+); Red Blood Cells-Urine 0 SEEN /hpf (0-5); Squamous Epithelial Cells - UA 0 SEEN /hpf (0-5); White Blood Cells 0 SEEN /hpf (0-5)
[2021-12-08 02:56] LABS: Color, Urine Yellow (Yellow); Glucose, Dipstick Normal (Normal); Ketone-Dipstick 5 mg/dl (Negative); Leukocyte Esterase-Dipstick Negative /ul (Negative); Nitrite-Dipstick Negative (Negative); Occult Blood-Urine Negative /ul (Negative); Protein-Dipstick Negative (Negative); Specific Gravity, Urine 1.015 (1.002-1.030); Urine Bilirubin Dipstick Negative (Negative); Urine Clarity Clear (Clear); Urine Urobilinogen Normal (Normal); Urine pH 6.5 (5.0 - 8.0)
--- NOTE | 2021-12-08 03:04 | RAD_ITS ---
EXAM: XR Abdomen 1 View HISTORY: NG Insertion TECHNIQUE: XR Abdomen 1 View COMPARISON: None. FINDINGS: A single frontal view of the upper abdomen was obtained. The lower abdomen/pelvis is not included in the examination. The tip of the enteric tube projects over the gastric fundus at the lateral aspect. No gross small bowel dilatation. No free air is identified given the limitations of a supine view. RAD/Abdomen Single View (Portable) IMPRESSION: Tip of the enteric tube projects over the gastric fundus. Electronically Signed: Mauricio Hastings MD at 4:04 EDT ,
--- NOTE | 2021-12-08 03:07 | NURSING ---
[facility] SA[facility] ETA [id number] FOR TRANSPORT.
[2021-12-08] MEDS: Lactulose 20 GM/30 ML UDC PO ×2 (03:30)
[2021-12-08 03:31] LABS: Amphetamine Urine VISTA NEGATIVE (<1000 ng/mL); Barbiturate Urine VISTA NEGATIVE (< 200 ng/mL); Benzodiazepine Urine VISTA NEGATIVE (< 200 ng/mL); Cocaine Urine VISTA NEGATIVE (< 300 ng/mL); Ecstacy Urine VISTA NEGATIVE (< 500 ng/mL); Methadone Urine VISTA NEGATIVE (< 300 ng/mL); PCP Urine VISTA NEGATIVE (< 25 ng/mL); THC Urine VISTA NEGATIVE (< 50 ng/mL); Vista UDS pH Range 6
--- NOTE | 2021-12-08 03:39 | ED.RN ---
NIH can be stopped at this time
[2021-12-08 04:11] LABS: AST(SGOT) 9 U/L (15-37); Alanine Aminotransfer ALT/SGPT 11 U/L (16-61); Albumin, Serum 2.9 g/dL (3.2-5.0); Alkaline Phosphatase 61 U/L (45-117); Bilirubin, Direct 0.12 mg/dL (0.00-0.30); Globulin 2.9 g/dL (2.2-4.2); Protein, Total 5.8 g/dL (6.4-8.2)
== END 2021-12-08 07:24 | disposition short-term general hospital (02) ==
PROVIDERS: Emergency Provider Emergency Medicine; Visit Provider Emergency Medicine
DX: G93.40 Encephalopathy, unspecified (principal); F20.9 Schizophrenia, unspecified; F17.210 Nicotine dependence, cigarettes, uncomplicated; R53.1 Weakness; R41.82 Altered mental status, unspecified
CPT/HCPCS: 51702; 70450; 70496; 70498; 71045; 74018; 80048; 80076; 80164; 80307; 81001; 82140; 84484; 85025; 85610; 85730; 87811; 93005; 99285; J7030; J7050; Q9967; A4216

== ENCOUNTER → 2022-07-02 | Outpatient (CLI) | payer SELFPAY ==
[2022-07-05 11:06] LABS: Bacteria 0 SEEN /hpf (None Seen); Mucous, Urine 0 SEEN /hpf (<or=2+); Red Blood Cells-Urine 0 SEEN /hpf (0-5); White Blood Cells 0 SEEN /hpf (0-5)
[2022-07-05 11:24] LABS: Color, Urine Yellow (Yellow); Glucose, Dipstick Normal (Normal); Ketone-Dipstick Negative (Negative); Leukocyte Esterase-Dipstick Negative /ul (Negative); Nitrite-Dipstick Negative (Negative); Occult Blood-Urine Negative /ul (Negative); Protein-Dipstick Negative (Negative); Specific Gravity, Urine 1.015 (1.002-1.030); Urine Bilirubin Dipstick Negative (Negative); Urine Clarity Clear (Clear); Urine Urobilinogen Normal (Normal)
[2022-07-05 11:35] LABS: Squamous Epithelial Cells - UA 0-5 SEEN /hpf (0-5)
== END | disposition home or self-care (01) ==
PROVIDERS: Referring Provider Physician Assistant Surgical; Visit Provider Physician Assistant Surgical
DX: N39.0 Urinary tract infection, site not specified (principal)
CPT/HCPCS: 81001; 87086

== ENCOUNTER 2022-08-10 13:31 | Inpatient (IN) | payer OTHER, SELFPAY ==
[2022-08-10] VITALS (13 sets, daily range): BP systolic 114–145; BP diastolic 69–92; PULSE 66–111; RESP 16–18; TEMP 36.2–36.9; O2SAT 95–97; BMI 22.8; BMI 21.6
--- NOTE | 2022-08-10 15:37 | EDS_ITS ---
HPI History of Present Illness Chief Complaint: Complaint Detail of Chief Complaint: Unable to urinate Informant: patient Onset/Context/Timing Onset: Yesterday Narrative Narrative: Patient presents secondary to being unable to urinate. He states he feels the urge to urinate but cannot pass any urine. He last urinated at 10 PM last evening. He also complains of bleeding hemorrhoids that he has been treating with topical medicine recently. No fever or chills. He denies history of urinary retention in the past. [facility] Medical History Arthritis Bipolar disorder Difficulty balancing Fatigue Hemorrhoid Incontinence Sepsis Weakness Home Medications benztropine 2 mg tablet 1 mg PO BID 07/15/20 [History Last Taken Unknown] finasteride 5 mg tablet 5 mg PO DAILY 12/08/21 [History Last Taken Unknown] tamsulosin 0.4 mg capsule 0.4 mg PO QHS 12/08/21 [History Last Taken Unknown] buspirone 5 mg tablet 5 mg PO BID 07/02/22 [History Last Taken Unknown] Allergy/AdvReac Type Severity Reaction Status Date / Time trifluoperazine Allergy Cramping Verified 08/10/22 15:05 [From Stelazine] Family History Other Cancer Heart disease Social History Smoking Status: Former smoker Tobacco: How many years used: 50 alcohol intake: never ROS ROS ED Constitutional Constitutional ED: Denies chills or fever(s) Eyes Eyes: Denies change in vision or discharge from eye(s) ENT ENT ED: Denies discharge from eye(s), rhinorrhea or sore throat Cardiovascular Cardiovascular: Denies chest pain or palpitations Respiratory/Chest Respiratory/Chest: Denies cough or dyspnea Gastrointestinal Gastrointestinal: Reports abdominal pain; Denies diarrhea, nausea or vomiting Genitourinary Genitourinary ED: Reports difficulty urinating Musculoskeletal Musculoskeletal: Denies back pain or extremity pain Integumentary Denies Abrasions or rash Neurologic Neurologic: Denies headache(s) or weakness Psychiatric Psychiatric: Denies anxiety or depression Allergic/Immunologic Allergic/Immunologic ED: Denies lip swelling or urticaria EXAM Physical Exam Const Vital Signs: 08/10/22 13:32 08/10/22 15:03 08/10/22 15:03 Temperature 98.4 F 97.2 F L Temperature Source Temporal Temporal Pulse Rate 101 H 111 H Respiratory Rate 18 18 Blood Pressure 115/71 145/92 H Blood Pressure Mean 85 109 Pulse Ox 95 97 Oxygen Delivery Method Room Air Room Air 08/10/22 16:35 08/10/22 17:02 08/10/22 17:58 Temperature 98.3 F 97.7 F L Temperature Source Oral Oral Pulse Rate 84 77 79 Respiratory Rate 17 18 18 Blood Pressure 120/82 H 131/82 H 129/76 H Blood Pressure Mean 94 98 93 Pulse Ox 96 95 97 Oxygen Delivery Method Room Air Room Air Room Air 08/10/22 18:00 08/10/22 19:04 08/10/22 19:04 Temperature 98 F 98.0 F Temperature Source Temporal Oral Pulse Rate 68 73 73 Respiratory Rate 18 18 18 Blood Pressure 136/73 H 130/74 H 130/74 H Blood Pressure Mean 94 92 92 Pulse Ox 96 95 95 Oxygen Delivery Method Room Air Room Air Room Air Positive well nourished and well developed General Appearance ED: well developed Eyes EOMs intact bilaterally Chest Wall inspection of chest normal and palpation of chest normal Resp normal respiratory effort and clear to auscultation bilaterally Cardio regular rate and regular rhythm GI GI Narrative: Abdomen soft with lower abdominal tenderness to palpation. Palpable distended bladder. Fullness/mass noted in the left groin. Rectal examination reveals no evidence of hemorrhoids. He does have a ulcerated lesion measuring approximately 4 x 2 cm around the anus. Back/Spine no CVA tenderness Extremity normal to inspection Neuro oriented x3 Sensorium / Orientation: alert MDM MDM MDM Narrative Medical decision making narrative: Mccloud catheter is ordered. Nursing staff was able to place a coud? catheter and got 1300 cc of rather clear urine out. Urinalysis obtained to evaluate for infection/hematuria. Labwork obtained to evaluate for leukocytosis, anemia, and electrolyte derangement. Given the patient's abnormal findings on rectal examination the CT scan of the pelvis with IV contrast is obtained. Lab Data Attestation: I reviewed the patient's lab results. Labs: Laboratory Results - last 24 hr 08/10/22 08/10/22 08/10/22 15:30 15:30 16:02 WBC 9.9 RBC 4.47 L Hgb 12.5 L Hct 38.1 L MCV 85.2 MCH 28.0 MCHC 32.8 RDW Std Deviation 39.9 RDW Coeff of Edi 12.9 Plt Count 305 MPV 10.1 Immature Gran % (Auto) 0.400 Neut % (Auto) 70.8 H Lymph % (Auto) 18.8 L [place] % (Auto) 8.3 Eos % (Auto) 1.3 Baso % (Auto) 0.4 Absolute Neuts (auto) 7.0 Absolute Lymphs (auto) 1.86 Nucleated RBC % 0 Sodium 137 Potassium 3.4 L Chloride 105 Carbon Dioxide 25.0 Anion Gap 7 BUN 13 Creatinine 0.92 Estim Creat Clear Calc 76.38 Est GFR (MDRD) Af Amer 104 Est GFR (MDRD) Non-Af 86 BUN/Creatinine Ratio 14.1 Glucose 117 H Calcium 9.7 Urine Color Yellow Urine Clarity Clear Urine pH 6.0 Ur Specific [place] 1.010 Urine Protein Negative Urine Glucose (UA) Normal Urine Ketones Negative Urine Occult Blood Negative Urine Nitrite Negative Urine Bilirubin Negative Urine Urobilinogen Normal Ur Leukocyte Esterase Negative Urine RBC 0 SEEN Urine WBC 0 SEEN Ur Squamous Epith Cells 0 SEEN Urine Bacteria 0 SEEN Urine Mucus 0 SEEN Radiography Diagnostic Testing: Clinical Impression(s) from Imaging Studies Pelvis CT 08/10/22 17:00 IMPRESSION: 1. Very small focus of decreased density to the left of the rectum which may represent a small developing perirectal abscess. 2. Extensive adenopathy in the left iliac and inguinal regions which may represent metastatic disease. Further evaluation with CT scan of the abdomen and pelvis may be beneficial. 3. Small lytic areas in the iliac wings possibly representing metastatic disease. Further evaluation with MRI may be beneficial. Electronically Signed: Dimas Maki MD at 18:10 EDT , Treatment and Re-Evaluation :: CBC was normal white count with hemoglobin of 12.5. Chemistry studies significant only for slightly low potassium at 3.4. Urinalysis obtained from Mccloud catheter reveals no evidence of infection. CT scan of the pelvis reveals a small focus of decreased density to the left of the rectum which may represent a small developing abscess. There is extensive adenopathy in the left iliac and inguinal regions which may represent metastatic disease. Small lytic lesions are noted in the iliac wings that may represent metastatic disease. Test results are all discussed with the patient. He denies any known history of cancer. He denies ever having a colonoscopy. I spoke with Dr. Cabral, on- call for surgery who reviewed the patient's work-up and imaging. She believes we can likely do a punch biopsy and potential colonoscopy here and get a definitive diagnosis to help patient make appropriate decisions and find appropriate treatment. Patient's lower abdominal pain is significantly improved after Mccloud catheter placement. This will be continued. I will speak with hospitalist. Discharge Plan Triage Chief Complaint: Complaint ED Provider: Kavya Ramirez Dx/Rx/DC Orders Clinical Impression: Urinary retention, Perianal lesion, Lymphadenopathy Prescriptions: No Action buspirone 5 mg tablet 5 mg PO BID benztropine 2 MG tablet 1 mg PO BID tamsulosin 0.4 mg Capsule 0.4 mg PO QHS finasteride 5 mg Tablet 5 mg PO DAILY [facility] [facility] [Primary Care Provider] - Disposition Disposition: Acute Care Hospital [facility]
[2022-08-10 15:45] LABS: Absolute Lymphocyte Count 1.86 X10^3/uL (0.83-4.51); Basophil# 0.04 X10^3/uL; Basophil% 0.4 % (0-1); Eosinophil# 0.13 X10^3/uL; Eosinophils% 1.3 % (0-5); Hematocrit 38.1 % (40-54); Hemoglobin 12.5 g/dL (13.0-16.5); Lymphocyte # 1.86 X10^3/ul (0.83-4.51); Lymphocyte % 18.8 % (19-41); Mean Corp Hgb Conc 32.8 g/dL (32-36); Mean Corpuscular Volume 85.2 fL (80-94); Mean Platelet Vol. 10.1 fl (6.2-12.0); Monocyte# 0.82 X10^3/uL; Monocyte% 8.3 % (0-10); NRBC Flagged by Analyzer 0 % (0-5); Neutrophil # 6.99 X10^3/uL (2.7-7.7); Neutrophil % 70.8 % (47-70); Platelet Count 305 K/mm3 (150-450); RBC Distribution Width CV 12.9 % (11.6-14.6); RBC Distribution Width SD 39.9 fl (35.1-43.9); Red Blood Count 4.47 M/mm3 (4.6-6.2); White Blood Count 9.9 K/mm3 (4.4-11.0)
[2022-08-10 16:33] LABS: Bacteria 0 SEEN /hpf (None Seen); Mucous, Urine 0 SEEN /hpf (<or=2+); Red Blood Cells-Urine 0 SEEN /hpf (0-5); Squamous Epithelial Cells - UA 0 SEEN /hpf (0-5); White Blood Cells 0 SEEN /hpf (0-5)
[2022-08-10 16:52] LABS: Color, Urine Yellow (Yellow); Glucose, Dipstick Normal (Normal); Ketone-Dipstick Negative (Negative); Leukocyte Esterase-Dipstick Negative /ul (Negative); Nitrite-Dipstick Negative (Negative); Occult Blood-Urine Negative /ul (Negative); Protein-Dipstick Negative (Negative); Urine Bilirubin Dipstick Negative (Negative); Urine Clarity Clear (Clear); Urine Urobilinogen Normal (Normal)
[2022-08-10 16:58] LABS: Anion Gap 7 (5-15); BUN 13 mg/dL (7-18); BUN/Creat Ratio 14.1 RATIO (10-20); Calcium,Total 9.7 mg/dL (8.5-10.1); Chloride 105 mmol/L (98-107); Creatinine, Serum 0.92 mg/dL (0.70-1.30); EST Glomerular Filtration Rate 86 mL/min (>60); Est Glom Filt Rate - Afr Amer 104 mL/min (>60); Estimated Creatinine Clearance 76.38 ml/min; Glucose 117 mg/dL (74-106); Potassium 3.4 mmol/L (3.5-5.1); Sodium Level 137 mmol/L (136-145)
--- NOTE | 2022-08-10 17:00 | CT_ITS ---
EXAM: CT PELVIS WITH INTRAVENOUS CONTRAST CLINICAL INDICATION: rectal wound TECHNIQUE: Helically acquired images were obtained of the pelvis with intravenous contrast. This CT exam was performed using one or more of the following dose reduction techniques: automated exposure control, adjustment of the mA and/or kV according to patient size, and/or use of iterative reconstruction technique. This report was created using [employer] report generation technology. CONTRAST: IV 100mL Isovue-370 COMPARISON: None. FINDINGS: BOWEL: Unremarkable as visualized. No bowel distention. No focal inflammatory change. APPENDIX: No evidence of acute appendicitis. INTRAPERITONEAL SPACE: Unremarkable. No ascites or other fluid collection. No free air. BLADDER: There is a Mccloud catheter within the bladder. There is very small low-density area to the left aspect of the rectum that measures 6 x 7 mm which may represent a tiny perirectal abscess. This is best seen on series 602 image 86 and series 2 image 65. REPRODUCTIVE: Unremarkable as visualized. No mass. BONES/JOINTS: There are small lytic areas seen within the iliac wings bilaterally. SOFT TISSUES: See above. LYMPH NODES: There are enlarged lymph nodes seen within the left iliac and inguinal chains with the largest iliac node measuring 5.9 x 2.5 x 4.3 cm in the largest inguinal node measuring 4.0 x 4.1 x 4.5 cm. Several of these lymph nodes have low density centers. CT/Pelvis WITH IV Contrast IMPRESSION: 1. Very small focus of decreased density to the left of the rectum which may represent a small developing perirectal abscess. 2. Extensive adenopathy in the left iliac and inguinal regions which may represent metastatic disease. Further evaluation with CT scan of the abdomen and pelvis may be beneficial. 3. Small lytic areas in the iliac wings possibly representing metastatic disease. Further evaluation with MRI may be beneficial. Electronically Signed: Dimas Maki MD at 18:10 EDT ,
--- NOTE | 2022-08-10 20:12 | ED.RN ---
PER DR. SESAY, PT OKAY TO EAT.
--- NOTE | 2022-08-10 20:21 | NURSING ---
[facility] ABOUT [facility] THE PATIENT. THERE WAS NO ANSWER SO I HAD TO LEAVE A VM.
--- NOTE | 2022-08-10 20:26 | PCM.HP.STD ---
HPI - General General Date of Admission: 08/10/22 Date of Service: 08/10/22 Chief Complaint: Urinary retention HPI Narrative DMITRI JACOBS, is a 72 M with a significant history of bipolar disorder who presents to the emergency department with urine retention. Reportedly patient's had not urinated since the day before presentation. Also he reports rectal bleeding that he thinks is coming from his hemorrhoids. On examination emergency department doctor found a primary and now wound that was scabbed over. This prompted a CT scan of his pelvis that showed abscess and multiple lymph nodes. Emergency Department doctor discussed the case with general surgeon who wanted patient to stay at the hospital for punch biopsy and possible colonoscopy to make a diagnosis. Patient denies anorexia. He reports about 5 to 6 pound weight gain but he does not know the duration that he has gained this weight. He is constipated. Last time his bowels moved about 5 to 6 days before presentation. He tried MiraLAX 2 times without any relief. [facility] Medical History Arthritis Bipolar disorder Difficulty balancing Fatigue Hemorrhoid Incontinence Sepsis Weakness Home Medications benztropine 2 mg tablet 1 mg PO BID 07/15/20 [History Last Taken Unknown] finasteride 5 mg tablet 5 mg PO DAILY 12/08/21 [History Last Taken Unknown] tamsulosin 0.4 mg capsule 0.8 mg PO QHS 12/08/21 [History Last Taken Unknown] buspirone 5 mg tablet 5 mg PO BID 07/02/22 [History Last Taken Unknown] glucosamine sulfate dipotassium Cl 500 mg-chondroitin 400 mg capsule (Glucosamine-Chondroitin DS) 2 cap PO DAILY 08/10/22 [History Last Taken Unknown] Allergy/AdvReac Type Severity Reaction Status Date / Time trifluoperazine Allergy Cramping Verified 08/10/22 15:05 [From Stelazine] Family History Other Cancer Heart disease Surgical History History of tooth extraction Social History Smoking Status: Former smoker Tobacco: How many years used: 50 alcohol intake: never ROS ROS Narrative Pertinent positives and pertinent negatives as noted in HPI. All other systems were reviewed and are negative Vital Signs Vital Signs Vital Signs: 08/10/22 13:32 08/10/22 15:03 08/10/22 15:03 Temperature 98.4 F 97.2 F L Temperature Source Temporal Temporal Pulse Rate 101 H 111 H Respiratory Rate 18 18 Blood Pressure 115/71 145/92 H Blood Pressure Mean 85 109 Pulse Ox 95 97 Oxygen Delivery Method Room Air Room Air 08/10/22 16:35 08/10/22 17:02 08/10/22 17:58 Temperature 98.3 F 97.7 F L Temperature Source Oral Oral Pulse Rate 84 77 79 Respiratory Rate 17 18 18 Blood Pressure 120/82 H 131/82 H 129/76 H Blood Pressure Mean 94 98 93 Pulse Ox 96 95 97 Oxygen Delivery Method Room Air Room Air Room Air 08/10/22 18:00 08/10/22 19:04 08/10/22 19:04 Temperature 98 F 98.0 F Temperature Source Temporal Oral Pulse Rate 68 73 73 Respiratory Rate 18 18 18 Blood Pressure 136/73 H 130/74 H 130/74 H Blood Pressure Mean 94 92 92 Pulse Ox 96 95 95 Oxygen Delivery Method Room Air Room Air Room Air Weight Weight: 74.4 kg Body Mass Index (BMI) 22.8 Physical Exam Narrative Physical exam: General: Well-nourished, well-developed. Head: Normocephalic, atraumatic, no tenderness Eyes: Vision is grossly intact. EOMI ENT, no trauma, moist mucous membranes, no rhinorrhea Neck: Nontender, No thyromegaly. CVS: Regular rate and rhythm. S1-S2 present. No murmur, gallop or rub. Respiratory : clear to auscultation bilaterally, chest wall nontender Abdomen: Soft, nontender, nondistended, normal bowel sounds, no masses : Mccloud catheter in place (placed at the ED). Anal and rectal area was not examined. Back: Nontender, no CVA tenderness, no midline spinal tenderness, deformities, step-offs Extremities: Nontender full range of motion, no trauma Skin: Normal color, no trauma, abrasions Neuro: Alert, oriented, cranial nerves II through XII grossly intact. Tremors of bilateral hands. Psychiatry: Normal mood. Normal affect. Not depressed. Not anxious. Results Lab / Micro Data Result Diagrams: 08/10/22 15:30 08/10/22 15:30 Labs: Laboratory Results - last 24 hr 08/10/22 15:30: WBC 9.9, RBC 4.47 L, Hgb 12.5 L, Hct 38.1 L, MCV 85.2, MCH 28.0, MCHC 32.8, RDW Std Deviation 39.9, RDW Coeff of Edi 12.9, Plt Count 305, MPV 10.1, Immature Gran % (Auto) 0.400, Neut % (Auto) 70.8 H, Lymph % (Auto) 18.8 L, [place] % (Auto) 8.3, Eos % (Auto) 1.3, Baso % (Auto) 0.4, Absolute Neuts (auto) 7.0, Absolute Lymphs (auto) 1.86, Nucleated RBC % 0 08/10/22 15:30: Sodium 137, Potassium 3.4 L, Chloride 105, Carbon Dioxide 25.0, Anion Gap 7, BUN 13, Creatinine 0.92, Estim Creat Clear Calc 76.38, Est GFR (MDRD) Af Amer 104, Est GFR (MDRD) Non-Af 86, BUN/Creatinine Ratio 14.1, Glucose 117 H, Calcium 9.7 08/10/22 16:02: Urine Color Yellow, Urine Clarity Clear, Urine pH 6.0, Ur Specific [place] 1.010, Urine Protein Negative, Urine Glucose (UA) Normal, Urine Ketones Negative, Urine Occult Blood Negative, Urine Nitrite Negative, Urine Bilirubin Negative, Urine Urobilinogen Normal, Ur Leukocyte Esterase Negative, Urine RBC 0 SEEN, Urine WBC 0 SEEN, Ur Squamous Epith Cells 0 SEEN, Urine Bacteria 0 SEEN, Urine Mucus 0 SEEN Radiology Impression Pelvis CT 08/10/22 17:00 IMPRESSION: 1. Very small focus of decreased density to the left of the rectum which may represent a small developing perirectal abscess. 2. Extensive adenopathy in the left iliac and inguinal regions which may represent metastatic disease. Further evaluation with CT scan of the abdomen and pelvis may be beneficial. 3. Small lytic areas in the iliac wings possibly representing metastatic disease. Further evaluation with MRI may be beneficial. Electronically Signed: Dimas Maki MD at 18:10 EDT , Assessment & Plan Assessment/Plan (1) Urinary retention: (2) Perianal lesion: (3) Lymphadenopathy: (4) Constipation: PLAN: Plan Urinary retention Mccloud catheter was placed in the emergency department. Urinalysis reviewed was negative. Flomax and finasteride continued. Lymphadenopathy/perianal lesion Radiologist impression of CT pelvis with IV contrast: 1.? Very small focus of decreased density to the left of the rectum which may represent a small developing perirectal abscess. ? 2.? Extensive adenopathy in the left iliac and inguinal regions which may represent metastatic disease. Further evaluation with CT scan of the abdomen and pelvis may be beneficial. ? 3.? Small lytic areas in the iliac wings possibly representing metastatic disease. Further evaluation with MRI may be beneficial CT pelvis with IV contrast visualized and independently interpreted and I agree with with radiologist interpretation. Surgery consult for possible punch biopsy of rectal lesion. Anemia CBC showed mild anemia of 12.5. Trend. Hypokalemia Potassium of 3.4 on presentation. Normal saline with IV potassium ordered. Trend BMP. Constipation Schedule Dulcolax p.o. ordered. Senokot as as needed ordered. Tremors Persistent Benztropine continued. DVT prophylaxis SCD ordered. Charges/Coding Visit Charges Inpatient E&M: 78038 Init Hosp L3
--- NOTE | 2022-08-10 21:07 | ED.RN ---
Addendum entered by Melisa Douglas 08/10/22 21:12: DR. SESAY AWARE. Original Note: THIS RN CALLED DMITRI BYRD (PT SON) TO OBTAIN MEDICATION LIST AT 2108. PARTIAL MED LIST OBTAINED. PT [facility] PT WAS DUE FOR INJECTION TODAY BUT DID NOT MAKE IT TO APPOINTMENT DUE TO BEING IN ER. PT AND PT SON UNSURE OF WHAT MONTHLY INJECTION IS.
--- NOTE | 2022-08-10 22:11 | ED.RN ---
PER PT AND PT FAMILY, [facility]. PT MISSED APPOINTMENT FOR AND RESCHEDULED APPOINTMENT FOR TUESDAY PER PT.
--- NOTE | 2022-08-11 | IMM_PTH ---
PATIENT: DMITRI JACOBS LOC: MS3 U#:[id number] AGE/SX: 72/M [place] [facility] [place]: Dr. Johnny Jorgensen DO : 1950 BED: 1 DIS: 08/12/2022 SPEC #: [id number] RECD: 08/12/22 14:08 STATUS: CAROLYNN REQ #: [id number] JIMBO: 08/11/22 00:[address]: Di Cabral DEPT: IMMUNOHISTOCHEMISTRY RECD BY: Catrina Ndiaye ENTERED: 08/12/22 14:10 SP TYPE: IMMUNO OTHR DR: MD Dr. Johnny Cotter, DO Dr. Emmanuel Cuba, DO Dr. Tyrone Polanco, [facility] Tissues: B - Inguinal lymph node, NOS Procedures: P53 (initial) MSH2 (add) MLH-1 (add) MSH6 (add) Anti-PMS2 (add) DUARTE-2 (add) HER2 FAZAL (add) KI-67 (add) PHYSICIAN & [address] [address] SPECIMEN INFORMATION: Tissue Source: B ? 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 Localization is made via biotin free immunoperoxidase method. Appropriate controls are performed and reacted as expected. Results on target cell population are indicated in the following table: RESULTS: ANTIBODY / CLONE RESULT Block B Her-2neu (CB11) negative (0) DUARTE-2 (SP21) positive MLH-1 (M1) positive MSH2 (25D12) positive MSH6 (44) positive PMS2 ([id number]) positive Ki-67 (30-9) positive, high, >95% P53 (DO-7) positive, Missense mutation pattern These tests were developed and their performance characteristics determined by [facility]. They may not have been cleared or approved by the U.S. Food and Drug Administration. The FDA has determined that such clearance or approval is not necessary. The above immunohistochemical/dualISH markers are ordered and reviewed by the Pathologist. INTERPRETATION: B. 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 Result of Microsatellite Instability Study: Negative (no loss of mismatch protein; no microsatellite instability detected). SJ:last 08/13/2022
[2022-08-11] MEDS: Tamsulosin HCl 0.4 MG Capsule 0.8 MG PO ×2 (00:09→21:08)
[2022-08-11] MEDS: Benztropine 2 MG Tablet 1 MG PO ×3 (00:10→21:07)
[2022-08-11] MEDS: busPIRone 5 MG Tablet PO ×3 (00:11→21:08)
[2022-08-11] MEDS: Acetaminophen 325 MG Tablet 650 MG PO ×2 (02:12→16:56)
[2022-08-11 05:00] VITALS: BP 112/74; PULSE 70; RESP 16; TEMP 36.7; O2SAT 96
[2022-08-11 06:24] LABS: Absolute Lymphocyte Count 2.15 X10^3/uL (0.83-4.51); Absolute Neutrophil Count 4.2 X10^3/uL (2.0-7.7); Basophil# 0.04 X10^3/uL; Basophil% 0.5 % (0-1); Eosinophil# 0.51 X10^3/uL; Eosinophils% 6.5 % (0-5); Hematocrit 36.3 % (40-54); Hemoglobin 11.9 g/dL (13.0-16.5); Lymphocyte # 2.15 X10^3/ul (0.83-4.51); Lymphocyte % 27.3 % (19-41); Mean Corp Hgb Conc 32.8 g/dL (32-36); Mean Corpuscular Hgb 27.7 pg (27.0-32.0); Mean Corpuscular Volume 84.6 fL (80-94); Mean Platelet Vol. 9.8 fl (6.2-12.0); Monocyte# 0.98 X10^3/uL; Monocyte% 12.5 % (0-10); NRBC Flagged by Analyzer 0 % (0-5); Neutrophil # 4.17 X10^3/uL (2.7-7.7); Neutrophil % 52.9 % (47-70); Platelet Count 311 K/mm3 (150-450); RBC Distribution Width CV 12.8 % (11.6-14.6); RBC Distribution Width SD 39.2 fl (35.1-43.9); Red Blood Count 4.29 M/mm3 (4.6-6.2); White Blood Count 7.9 K/mm3 (4.4-11.0)
[2022-08-11 06:53] LABS: Anion Gap 3 (5-15); BUN 12 mg/dL (7-18); BUN/Creat Ratio 16.6 RATIO (10-20); Chloride 109 mmol/L (98-107); Creatinine, Serum 0.72 mg/dL (0.70-1.30); EST Glomerular Filtration Rate 114 mL/min (>60); Est Glom Filt Rate - Afr Amer 138 mL/min (>60); Glucose 120 mg/dL (74-106); Potassium 3.8 mmol/L (3.5-5.1); Sodium Level 139 mmol/L (136-145)
[2022-08-11 07:51] VITALS: O2SAT 96
[2022-08-11 07:57] LABS: PSA,Total- Diagnostic 2.11 ng/mL (0.0-4.0)
--- NOTE | 2022-08-11 08:37 | EX.PCM.CON.S ---
Assessment & Plan Assessment/Plan (1) Perianal lesion: (2) Lymphadenopathy: (3) Constipation: PLAN: Plan We will plan for a punch biopsy of the perianal lesion likely anal cancer. Also plan for ultrasound-guided biopsy of the left lymphadenopathy today at bedside. Discussed the procedure with patient and he was agreeable with plan. Will also discussed with patient's son. Patient had constipation looks like sitting in the rectum on CAT scan we will give tapwater enema and wound nurse will also help with this perianal area as it is quite painful. That I was able to disimpact some of the stool will give another tapwater enema?patient is not obstructed. Di Cabral M.D. Pager: [phone] [facility] [address] [place] [address], [facility], [address] [place] [address] Office: [phone] HPI Consult Data Date of Consult: 08/11/22 HPI Narrative HPI Narrative: DMITRI JACOBS, is a 72 M who initially presented to the ER due to urinary retention. Patient also admits to constipation x6 days. Patient states he has had hemorrhoids for years and they are quite painful. Patient also admits over the last several months noticing a bulge in his left groin. The bulge is also painful at certain spots with palpation. Patient CT abdomen pelvis which questions a perianal lesion or abscess but there is also markedly enlarged pelvic and left inguinal lymph nodes. Patient never had previous colonoscopy. [facility] Medical History Arthritis Bipolar disorder Difficulty balancing Fatigue Hemorrhoid Incontinence Sepsis Weakness Home Medications benztropine 2 mg tablet 1 mg PO BID 07/15/20 [History Last Taken 08/10/22] finasteride 5 mg tablet 5 mg PO DAILY 12/08/21 [History Last Taken Unknown] tamsulosin 0.4 mg capsule 0.8 mg PO QHS 12/08/21 [History Last Taken Unknown] buspirone 5 mg tablet 5 mg PO BID 07/02/22 [History Last Taken 08/10/22] glucosamine sulfate dipotassium Cl 500 mg-chondroitin 400 mg capsule (Glucosamine-Chondroitin DS) 2 cap PO DAILY 08/10/22 [History Last Taken Unknown] paliperidone palmitate 234 mg/1.5 mL intramuscular syringe 234 mg IM 08/10/22 [History Last Taken Unknown] Allergy/AdvReac Type Severity Reaction Status Date / Time trifluoperazine Allergy Cramping Verified 08/10/22 15:05 [From Lashawn] Family History Other Cancer Heart disease Surgical History History of tooth extraction Social History Smoking Status: Former smoker Tobacco: How many years used: 50 alcohol intake: never Physical Exam Const alert, oriented x3 and no apparent distress General Appearance: frail HEENT normocephalic Lymph Lymphatic Narrative: Left inguinal adenopathy by 8 cm on exam, mildly tender Resp normal respiratory effort Cardio Rate: regular rate GI soft to palpation, non-tender and non-distended GI Narrative: Perianal tissue with excoriation circumferentially as well as a lesion half the circumference on the left side of the anus with some other smaller lesions seen perianal on the right--normal anal tissue/anal verge on the right half of the anus. Excoriation may be due to continued leakage. Bladder / Kidney Exam: catheter in place Extremity normal to inspection and no calf tenderness Skin Skin Narrative: Perianal issues with excoriation, very tender, sloughing drainage Neuro Neuro Narrative: Patient does have tremors of bilateral upper extremities Psych affect normal Lab / Micro Data Result Diagrams: 08/11/22 05:35 08/11/22 05:35 Labs: Laboratory Results - last 24 hr 08/10/22 15:30: WBC 9.9, RBC 4.47 L, Hgb 12.5 L, Hct 38.1 L, MCV 85.2, MCH 28.0, MCHC 32.8, RDW Std Deviation 39.9, RDW Coeff of Edi 12.9, Plt Count 305, MPV 10.1, Immature Gran % (Auto) 0.400, Neut % (Auto) 70.8 H, Lymph % (Auto) 18.8 L, [place] % (Auto) 8.3, Eos % (Auto) 1.3, Baso % (Auto) 0.4, Absolute Neuts (auto) 7.0, Absolute Lymphs (auto) 1.86, Nucleated RBC % 0 08/10/22 15:30: Sodium 137, Potassium 3.4 L, Chloride 105, Carbon Dioxide 25.0, Anion Gap 7, BUN 13, Creatinine 0.92, Estim Creat Clear Calc 76.38, Est GFR (MDRD) Af Amer 104, Est GFR (MDRD) Non-Af 86, BUN/Creatinine Ratio 14.1, Glucose 117 H, Calcium 9.7 08/10/22 16:02: Urine Color Yellow, Urine Clarity Clear, Urine pH 6.0, Ur Specific Mason 1.010, Urine Protein Negative, Urine Glucose (UA) Normal, Urine Ketones Negative, Urine Occult Blood Negative, Urine Nitrite Negative, Urine Bilirubin Negative, Urine Urobilinogen Normal, Ur Leukocyte Esterase Negative, Urine RBC 0 SEEN, Urine WBC 0 SEEN, Ur Squamous Epith Cells 0 SEEN, Urine Bacteria 0 SEEN, Urine Mucus 0 SEEN 08/11/22 05:35: WBC 7.9, RBC 4.29 L, Hgb 11.9 L, Hct 36.3 L, MCV 84.6, MCH 27.7, MCHC 32.8, RDW Std Deviation 39.2, RDW Coeff of Edi 12.8, Plt Count 311, MPV 9.8, Immature Gran % (Auto) 0.300, Neut % (Auto) 52.9, Lymph % (Auto) 27.3, [place] % (Auto) 12.5 H, Eos % (Auto) 6.5 H, Baso % (Auto) 0.5, Absolute Neuts (auto) 4.2, Absolute Lymphs (auto) 2.15, Nucleated RBC % 0 08/11/22 05:35: Sodium 139, Potassium 3.8, Chloride 109 H, Carbon Dioxide 27.0, Anion Gap 3 L, BUN 12, Creatinine 0.72, Estim Creat Clear Calc 66.30, Est GFR (MDRD) Af Amer 138, Est GFR (MDRD) Non-Af 114, BUN/Creatinine Ratio 16.6, Glucose 120 H, Calcium 9.0 08/11/22 05:35: Total PSA 2.[address] 08/10/22 17:00 IMPRESSION: 1. Very small focus of decreased density to the left of the rectum which may represent a small developing perirectal abscess. 2. Extensive adenopathy in the left iliac and inguinal regions which may represent metastatic disease. Further evaluation with CT scan of the abdomen and pelvis may be beneficial. 3. Small lytic areas in the iliac wings possibly representing metastatic disease. Further evaluation with MRI may be beneficial. Electronically Signed: Dimas Maki MD at 18:10 EDT , Charges/Coding Visit Charges Inpatient E&M: 47722 Init Hosp L3
[2022-08-11 09:00] VITALS: BP 128/86; PULSE 74; RESP 18; TEMP 36.6; O2SAT 96
[2022-08-11] MEDS: Morphine 2 MG/ML Syringe 1 MG IV ×3 (09:16→20:35)
[2022-08-11] MEDS: Finasteride 5 MG Tablet PO (09:31)
--- NOTE | 2022-08-11 10:47 | PCM.PN.HOSP ---
Reason for Visit Reason for Visit: Diagnoses Constipation, unspecified (08/10/22) Disease of anus and rectum, unspecified (08/10/22) Retention of urine, unspecified (08/10/22) Generalized enlarged lymph nodes (08/10/22) Subjective Subjective Patient was seen and examined today, he remains constipated despite receiving enemas today. I talked extensively with general surgery today, they plan on doing a biopsy of the rectum at the bedside today. Radiation oncology will also see the patient in consultation. Objective Data Objective Data Vital Signs: Vital Signs Temp Pulse Resp BP Pulse Ox O2 Del Method 98.0 F 70 16 112/74 96 Room Air 08/11/22 05:00 08/11/22 05:00 08/11/22 05:00 08/11/22 05:00 08/11/22 07:51 08/11/22 07:51 Oxygen Delivery Method Room Air Weight: 70.2 kg Body Mass Index (BMI) 21.6 Intake & Output: Intake and Output for Last 24 Hours 08/09/22 08/10/22 08/11/22 23:59 23:59 23:59 Output Total 1380 / 1380 1100 / 1100 Balance -1380 / -1380 -1100 / -1100 Lab / Micro Data Result Diagrams: 08/11/22 05:35 08/11/22 05:35 Labs: Laboratory Results - last 24 hr 08/10/22 15:30: WBC 9.9, RBC 4.47 L, Hgb 12.5 L, Hct 38.1 L, MCV 85.2, MCH 28.0, MCHC 32.8, RDW Std Deviation 39.9, RDW Coeff of Edi 12.9, Plt Count 305, MPV 10.1, Immature Gran % (Auto) 0.400, Neut % (Auto) 70.8 H, Lymph % (Auto) 18.8 L, [place] % (Auto) 8.3, Eos % (Auto) 1.3, Baso % (Auto) 0.4, Absolute Neuts (auto) 7.0, Absolute Lymphs (auto) 1.86, Nucleated RBC % 0 08/10/22 15:30: Sodium 137, Potassium 3.4 L, Chloride 105, Carbon Dioxide 25.0, Anion Gap 7, BUN 13, Creatinine 0.92, Estim Creat Clear Calc 76.38, Est GFR (MDRD) Af Amer 104, Est GFR (MDRD) Non-Af 86, BUN/Creatinine Ratio 14.1, Glucose 117 H, Calcium 9.7 08/10/22 16:02: Urine Color Yellow, Urine Clarity Clear, Urine pH 6.0, Ur Specific [place] 1.010, Urine Protein Negative, Urine Glucose (UA) Normal, Urine Ketones Negative, Urine Occult Blood Negative, Urine Nitrite Negative, Urine Bilirubin Negative, Urine Urobilinogen Normal, Ur Leukocyte Esterase Negative, Urine RBC 0 SEEN, Urine WBC 0 SEEN, Ur Squamous Epith Cells 0 SEEN, Urine Bacteria 0 SEEN, Urine Mucus 0 SEEN 08/11/22 05:35: WBC 7.9, RBC 4.29 L, Hgb 11.9 L, Hct 36.3 L, MCV 84.6, MCH 27.7, MCHC 32.8, RDW Std Deviation 39.2, RDW Coeff of Edi 12.8, Plt Count 311, MPV 9.8, Immature Gran % (Auto) 0.300, Neut % (Auto) 52.9, Lymph % (Auto) 27.3, [place] % (Auto) 12.5 H, Eos % (Auto) 6.5 H, Baso % (Auto) 0.5, Absolute Neuts (auto) 4.2, Absolute Lymphs (auto) 2.15, Nucleated RBC % 0 08/11/22 05:35: Sodium 139, Potassium 3.8, Chloride 109 H, Carbon Dioxide 27.0, Anion Gap 3 L, BUN 12, Creatinine 0.72, Estim Creat Clear Calc 66.30, Est GFR (MDRD) Af Amer 138, Est GFR (MDRD) Non-Af 114, BUN/Creatinine Ratio 16.6, Glucose 120 H, Calcium 9.0 08/11/22 05:35: Total PSA 2.11 Radiography Diagnostic Testing: Radiology Impression Pelvis CT 08/10/22 17:00 IMPRESSION: 1. Very small focus of decreased density to the left of the rectum which may represent a small developing perirectal abscess. 2. Extensive adenopathy in the left iliac and inguinal regions which may represent metastatic disease. Further evaluation with CT scan of the abdomen and pelvis may be beneficial. 3. Small lytic areas in the iliac wings possibly representing metastatic disease. Further evaluation with MRI may be beneficial. Electronically Signed: Dimas Maki MD at 18:10 EDT , Physical Exam Const alert, oriented x3, no apparent distress and healthy appearing General Appearance: cooperative, well kempt and well developed Orientation / Consciousness: awake, oriented to person, oriented to place and oriented to time HEENT normocephalic and moist oral mucous membranes Eyes PERRL, EOMs intact bilaterally and conjunctivae normal Neck supple, no JVD, thyroid normal and no carotid bruits General: trachea midline Resp normal respiratory effort and clear to auscultation bilaterally Auscultation: Negative for rales, rhonchi or wheezes Cardio regular rate, regular rhythm, no murmurs, no rub and no gallops GI normal to inspection, nondistended, normoactive bowel sounds, soft to palpation, non-tender and non-distended GI Narrative: Rectal examination was not done on the patient Extremity no clubbing, cyanosis or edema Skin no rashes or lesions noted General Skin Exam: no breakdown Neuro oriented x3, CN's II-XII intact bilaterally, moves all extremities, no focal motor deficits and no sensory deficits noted Sensorium / Orientation: awake, alert, oriented to person, oriented to place and oriented to time Speech: speech normal Psych affect normal Assessment & Plan Assessment/Plan (1) Constipation: PLAN: Plan 1 urinary retention-patient has a Mccloud catheter in place at this time #2 probable rectal cancer-I talked with general surgery today, they are going to perform a biopsy and the patient #3 lymphadenopathy in the left iliac and inguinal regions-this could be indicative of metastatic disease spread, further work-up will need to be carried out #4 lytic areas in the iliac wings-etiology unclear, possibly secondary to metastatic cancer, further work-up will need to be undertaken #5 bipolar disorder-patient will remain on his current medications #6 resting tremor-etiology unclear, patient follows up with the [facility] Total clinical time spent by myself addressing the patient's medical issues, reviewing all the data, and collaborating with patient's care team: 35 minutes Charges/Coding Visit Charges Inpatient E&M: 01270 Subs Hosp L2
--- NOTE | 2022-08-11 10:50 | TISS_PTH ---
PATIENT: DMITRI JACOBS LOC: [facility] [place] U#:[id number] AGE/SX: 72/M ROOM: [facility] [place] RE08/11/[address]: Dr. Johnny Jorgensen DO : 1950 BED: 1 DIS: 08/12/2022 SPEC #: [id number] RECD: 08/11/22 10:55 STATUS: CAROLYNN RERickey #: [id number] JIMBO: 08/11/22 10:[address]: Di Cabral DEPT: SURGICAL PATHOLOGY RECD BY: Jovon Bermudez ENTERED: 08/11/22 11:45 SP TYPE: Tissue Bx OT DR: MD Dr. George Mann MD Dr. Mark Tereletsky, DO Dr. Robert Field, MD Dr. Ryan Jin, MD Dr. 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 Right perianal punch 4 mm, frozen section, B ? Left inguinal lymph node biopsy, frozen section FROZEN SECTION DIAGNOSIS A. 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 B. 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 SJ:last 08/11/2022 Case has been reviewed in consultation with Dr. Anderson who concurs with the above diagnosis. IDC:AM MICROSCOPIC DIAGNOSIS A. 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 See comment. B. 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 See comment. HALLEY:last 08/12/2022 COMMENT A & B. Mucin stain with matched control is used in the evaluation of the specimen. Tumor cells are positive for mucin. B. Immunohistochemistry ([id number]) for microsatellite instability (mismatch repair of protein) will be performed and the results will be reported separately. Case has been reviewed in consultation with Dr. Anderson who concurs with the above diagnosis. IDC:AM MICROSCOPIC DESCRIPTION Slides are reviewed. GROSS DESCRIPTION A - Received fresh for frozen section diagnosis labeled with the patient's name is a specimen designated rectal tissue. The specimen consists of a piece of culver soft tissue measuring 0.7 x 0.3 x 0.1 cm. The entire specimen is submitted for frozen section diagnosis in one cassette. B - Received fresh for frozen section diagnosis labeled with the patient's name is a specimen designated left inguinal lymph node. The specimen consists of multiple elongated cores of culver soft tissue that in aggregate measure 1.5 x 0.3 x 0.1 cm. The entire specimen is submitted for frozen section diagnosis in one cassette. / SJ:rg 08/11/2022 TC:0 CPT: 23389 x2, 33606 x2, 55380 x2 ADDENDUM ADDENDUM ADDENDUM ADDENDUM ADDENDUM ADDENDUM ADDENDUM ADDENDUM ADDENDUM ADDENDUM ADDENDUM ADDENDUM ADDENDUM 06/13/2023 09:42 ADDENDUM 06/13/2023 09:42 ADDENDUM 06/13/2023 09:42 ADDENDUM 06/13/2023 09:42 ADDENDUM 06/13/2023 09:42 This addendum is added to incorporate an outside pathology consultation report. The case was examined at [facility] (#[id number]) and the following diagnosis was rendered. A. Rectal tissue, punch biopsy: Poorly differentiated adenocarcinoma with signet ring cell features. B. Left inguinal lymph node, core biopsy: Metastatic poorly differentiated adenocarcinoma with signet ring cell features involving fibrous tissue. Please see complete above mentioned consultation report in EMR
--- NOTE | 2022-08-11 12:18 | OP.PCM_ITS ---
Report of Operation Date of Procedure: 08/11/22 Pre-Operative Diagnosis: perianal lesion, left inguinal lymphadenopathy Post-Operative Diagnosis: metastatic adenocarcinoma to left inguinal LN- per frozen Surgery/Procedure Performed:: Punch biopsy of right perianal lesion, left u ltrasound-guided inguinal node core biopsy Description of Surgical Findings:: Presents for consistent with adenocarcinoma with signet cell features Surgeon: Di Cabral Type of Anesthesia: Local Specimen's removed: 1. Right perirectal lesion, 2. Left inguinal lymph node co re biopsy Estimated Blood Loss (mL): < 10 cc Description of Procedure: Procedure: Right perirectal punch biopsy, and left inguinal lymph node ultrasound-guided core biopsy Indications: 72 year-old male initially presented to the ER due to urinary retention. Found to have perianal lesions as well as left inguinal lymphadenopathy. Description of procedure: A timeout was completed verifying correct patient, procedure, site, specially, prior to beginning procedure. Perianal lesion on the right was chosen. This was prepped with Betadine. Local anesthesia 1% lidocaine was used. A 4 mm punch biopsy was sent at the site. There is some oozing which was controlled with a simple interrupted 4-0 nylon suture. Next the left groin was prepped and draped in usual sterile fashion. Using local anesthesia was obtained with 1% lidocaine. The enlarged lymph nodes were located with the ultrasound. Small incision was made with 11 blade to introduced the BARD MaxCore through the skin. Under ultrasound guidance multiple core samples were obtained using then 14-gauge BARD MaxCore and sent fresh to pathology for frozen section. Frozen section was consistent with adenocarcinoma with signet features. Upon completion procedure hemostasis was obtained and a Steri-Strip and OpSite were placed. The patient tolerated the procedure well. Complications none
--- NOTE | 2022-08-11 12:31 | WOUNDNOTE ---
wound photo: miguel angel anal
--- NOTE | 2022-08-11 13:00 | CHAPLAIN ---
Type of Pastoral Visit _x__ Initial Visit ___ Follow-up Visit ___ On-call Visit ___ General Patient Visit ___ Spiritual Assessment ___ Family Conference ___ Bereavement ___ Rapid Response ___ Code Blue ___ Other (describe below) Pastoral Care Referral From _x__ Patient ___ Family ___ Nurse ___ Physician ___ Nursing Tech ___ Junior Systems Administrator ___ Other (describe below) Sacrament/Intervention _x__ Active listening ___ Anointing ___ Hindu ___ Bereavement ___ Communion _x__ Taylor exploration ___ _x__ Life review _x__ Prayer ___ Reconciliation ___ Sacrament of Sick _x__ Supportive presence ___ Wedding ___ Other (describe below) Pastoral Comments patient is waiting on biopsy to inform about cancer possibility; pt states that he is fine and will go home before any treatments anyway; pt has spouse at home with health issues; both are being cared for by a son that lives with them; pt denies any worries but welcomes a prayer for his behalf; pt welcomes time to talk and presence of this analytical manager; 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
--- NOTE | 2022-08-11 13:35 | CASEMGMT ---
Addendum entered by Shireen Gonzalez 08/11/22 15:28: 1424-Received tc from [place] covering for Ingrid. Information received is that pt would need a referral through [facility] for oncology c/s. Once approved, pt could be scheduled for the oncologist in [place]. If pt needed treatment such as chemo or radiation, it would likely be approved locally as there is not interventionalist in [place]. If a consult for a onc in [place] is completed, it may not be covered. To have the referral for onc c/s, pt medical records and recommendations need to be faxed to [phone]. [facility] Spoke with regarding options. Discussed trf to [facility] ([place], [place]). RN CM into pt room, discussed options with patient. Pt is agreeable to being trf'd to [facility] [place]. Pt did ask what an oncologist is. Explained this to him. 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 Updated hospitalist. Proceeded to call trtherese line, left message with request to trf. Gave call back info for this RN CM and RN CM covering tomorrow. Original Note: RN CM into pt room, pt reports he only has the [facility] benefit. It is his understanding that if he sees a physician locally the [facility] will cover this. Pt states he prefers to see physicians local to him but cannot afford to pay if it is not covered. Pt states he would then prefer to [facility]. TC to [facility], left message with behavioral health care coordinator. TC to Dr.Bipin Benitez's office, spoke with Taylor who trf'd to another nurse [place]grid and received . Left message to verify if pt is referred to a local specialist to see how this would be covered. Will await returned call. Updated hospitalist of information.
--- NOTE | 2022-08-11 13:36 | CT_ITS ---
EXAM: CT CHEST, ABDOMEN AND PELVIS WITH INTRAVENOUS CONTRAST CLINICAL INDICATION: shortness of breath AND LYMPHADENOPATHY WITH BIOPSY TODAY OF PERIRECTAL AREA AND LEFT GROIN LYMPHNODE TECHNIQUE: Helically acquired images were obtained of the chest, abdomen and pelvis with intravenous contrast. This CT exam was performed using one or more of the following dose reduction techniques: automated exposure control, adjustment of the mA and/or kV according to patient size, and/or use of iterative reconstruction technique. This report was created using Telepathy report generation technology. CONTRAST: Oral and amp; IV Gastrografin and amp; 100mL Isovue-300 RADIATION DOSE: CTDIvol = 16.42 mGy, DLP = 2382.39 mGy-cm COMPARISON: ct pelvis 08.10.22 FINDINGS: CHEST: LUNGS AND PLEURAL SPACES: There is no pneumothorax. There is no demonstrated pleural abnormality. Emphysema changes in the lung guevara. Right lower lobe and left lower lobe scarring. No mass. HEART: There are calcifications of the coronary arteries. Heart size is normal. No pericardial effusion. MEDIASTINUM: Unremarkable. No mediastinal or hilar adenopathy. Esophagus is unremarkable. No hiatal hernia. THYROID: Unremarkable. No thyroid lesions. ABDOMEN: LIVER: Unremarkable. Normal liver. GALLBLADDER AND BILE DUCTS: There are multiple gallstones. No gallbladder distention or wall edema. No intra- or extrahepatic biliary ductal dilation. PANCREAS: Unremarkable. No focal cystic or solid mass. Normal pancreas. SPLEEN: There are multiple benign calcified granulomata of the spleen. ADRENALS: Unremarkable. Normal bilateral adrenal glands. KIDNEYS AND URETERS: Moderate right hydronephroureter. Obstructing stone is not visualized. Normal renal size and position. No acute findings of the left kidney. STOMACH AND BOWEL: Stool throughout the colon. No stomach or bowel distention. No focal inflammatory change. Normal visualized stomach. Normal small intestine. PELVIS: APPENDIX: The appendix is visualized and appears normal. BLADDER: Urinary bladder wall has wall thickening. This can be related to a partially contractile state. However, a cystitis is not excluded. Urinalysis should be performed in an effort to exclude cystitis. There is a Mccloud balloon catheter in the urinary bladder. REPRODUCTIVE: Unremarkable as visualized. No mass. CHEST, ABDOMEN and PELVIS: INTRAPERITONEAL SPACE: Unremarkable. No ascites or other fluid collection. No free air. BONES/JOINTS: Lytic lesions in the iliac bones concerning for metastatic foci. There are degenerative changes of the shoulders. There are multi-level degenerative changes of the thoracic spine. There are diffuse degenerative changes of the visualized lumbar spine. SOFT TISSUES: Persistent 7 mm hypodense fluid collection in the left perianal region may represent a perianal abscess. There is an umbilical hernia containing fat. VASCULATURE: There is atherosclerotic calcification of the aortic arch with tortuosity and elongation of the aortic arch and descending thoracic aorta. There are calcifications of the abdominal aorta. This is consistent for atherosclerotic disease. There is no abdominal aortic aneurysm. LYMPH NODES: Paulina Aortic adenopathy predominantly on the left side. Largest lymph node is 14 mm. Diffuse adenopathy along the left pelvic sidewall. The largest nodule is 35 mm. Multiple lymph nodes in the left inguinal region which are necrotic. These measure 45 mm. Metastatic disease or lymphoma should be considered. CT/CT Chest, Abd, Pel w/Contrast IMPRESSION: 1. Moderate right hydronephroureter. Obstructing stone is not visualized. 2. Multiple lymph nodes in the left inguinal region which are necrotic. These measure 45 mm. Metastatic disease or lymphoma should be considered. 3. Persistent 7 mm hypodense fluid collection in the left perianal region may represent a perianal abscess. 4. Urinary bladder wall has wall thickening. This can be related to a partially contractile state. However, a cystitis is not excluded. Urinalysis should be performed in an effort to exclude cystitis. 5. Lytic lesions in the iliac bones concerning for metastatic foci. 6. There are multiple gallstones. Electronically Signed: Alireza Urrutia MD at 17:27 EDT ,
--- NOTE | 2022-08-11 14:01 | NURSING ---
PT CURRENTLY DRIUNKING ct ORAL CONTRAST BOTTLE #1/[address] SCAN @ 1600
[2022-08-11 14:33] LABS: AST(SGOT) 17 U/L (15-37); Alanine Aminotransfer ALT/SGPT 14 U/L (16-61); Albumin, Serum 2.9 g/dL (3.2-5.0); Alkaline Phosphatase 80 U/L (45-117); Bilirubin, Direct 0.08 mg/dL (0.00-0.30); Globulin 3.8 g/dL (2.2-4.2); Protein, Total 6.7 g/dL (6.4-8.2)
--- NOTE | 2022-08-11 15:57 | NURSING ---
to CT scan via bed
[2022-08-11 16:16] VITALS: BP 127/81; PULSE 77; RESP 18; TEMP 36.6; O2SAT 96
[2022-08-11] MEDS: Ensure Plus High Protein 120 ML LIQUID PO (16:57)
--- NOTE | 2022-08-11 17:11 | NURSING ---
pt chose selections for dinner and they were phoned to dietary and left on their recorder
--- NOTE | 2022-08-11 21:22 | NURSING ---
Tap water enema given. pt tolerated well, but unable to hold in fluid. feces stained fluid noted.
[2022-08-11 22:30] VITALS: BP 118/78; PULSE 77; RESP 18; TEMP 36.7; O2SAT 96
[2022-08-12 04:05] VITALS: BP 128/74; PULSE 68; RESP 18; TEMP 36.6; O2SAT 96
--- NOTE | 2022-08-12 09:02 | PN.SURG_ITS ---
Subjective Subjective Patient states he had bowel movements last night. After the enemas and also p.o. contrast. Patient had a CT chest abdomen pelvis. Showed some other questionable lytic lesions in the iliacs questionable mets. Patient's frozen section of his left inguinal node and punch biopsy of perianal tissue was positive for adenocarcinoma of the rectum. Objective Data Objective Data Vital Signs: Vital Signs Temp Pulse Resp BP Pulse Ox O2 Del Method 97.9 F 68 18 128/74 H 96 Room Air 08/12/22 04:05 08/12/22 04:05 08/12/22 04:05 08/12/22 04:05 08/12/22 04:05 08/12/22 04:05 Oxygen Delivery Method Room Air Weight: 154 lb 12.232 oz Body Mass Index (BMI) 21.6 Intake & Output: Intake and Output for Last 24 Hours 08/10/22 08/11/22 08/12/22 23:59 23:59 23:59 Intake Total 2665 / 2665 Output Total 1380 / 1380 2200 / 2200 1000 / 1000 Balance -1380 / -1380 465 / 465 -1000 / -1000 Lab / Micro Data Result Diagrams: 08/11/22 05:35 08/11/22 05:35 Labs: Laboratory Results - last 24 hr 08/11/22 05:35: Total Bilirubin 0.30, Direct Bilirubin 0.08, AST 17, ALT 14 L, Alkaline Phosphatase 80, Total Protein 6.7, Albumin 2.9 L, Globulin 3.8 Micro: Microbiology 08/10/22 16:02 Urine, Catheterized Urine Culture - Final Culture exhibits no growth. Radiography Diagnostic Testing: Radiology Impression Chest/Abdomen/Pelvis CT 08/11/22 13:36 IMPRESSION: 1. Moderate right hydronephroureter. Obstructing stone is not visualized. 2. Multiple lymph nodes in the left inguinal region which are necrotic. These measure 45 mm. Metastatic disease or lymphoma should be considered. 3. Persistent 7 mm hypodense fluid collection in the left perianal region may represent a perianal abscess. 4. Urinary bladder wall has wall thickening. This can be related to a partially contractile state. However, a cystitis is not excluded. Urinalysis should be performed in an effort to exclude cystitis. 5. Lytic lesions in the iliac bones concerning for metastatic foci. 6. There are multiple gallstones. 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 Cuba will see patient this morning. Did do CT chest abdomen pelvis yesterday?personally reviewed. Patient is left groin biopsy site dressed clean dry and intact. Patient's right perianal punch biopsy site does have a 4-0 nylon suture interrupted x1-that will need removed in about 7 to 10 days. Patient states he had bowel movements yesterday due to the p.o. contrast as well as tapwater enemas. [facility] thus he may not be able to be [facility] Unless recommendations are submitted and [facility] allows for it. Would plan to do an outpatient port-- fairly soon if pt is able to be treated here. Di Cabral M.D. Pager: [phone] [facility] [address] [place] [address], [facility], [address] [place] [id number] Office: [phone] Charges/Coding Visit Charges Inpatient E&M: 10269 Subs Hosp L3
[2022-08-12] MEDS: Acetaminophen 325 MG Tablet 650 MG PO (09:07)
[2022-08-12] MEDS: busPIRone 5 MG Tablet PO (09:07)
[2022-08-12] MEDS: Benztropine 2 MG Tablet 1 MG PO (09:07)
[2022-08-12] MEDS: Finasteride 5 MG Tablet PO (09:07)
[2022-08-12] MEDS: Ensure Plus High Protein 120 ML LIQUID PO (09:08)
[2022-08-12 09:14] VITALS: BP 124/79; PULSE 81; RESP 18; TEMP 36.6; O2SAT 96
--- NOTE | 2022-08-12 12:36 | CASEMGMT ---
Addendum entered by Glendy Ceron 08/12/22 14:51: Call received from Mary stating transportation has been arranged and pt will be picked up @ 6:30 PM to be transferred to [facility]. 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 Addendum entered by Glendy Ceron 08/12/22 14:07: COVID result is negative. Results faxed to [facility]. Pt signed consent to transfer and this was faxed to [facility] at this time as well. Call placed to Mary @ [facility]. She was made aware COVID is negative and that results were faxed along w/consent to transfer. She states the time for pick-up is still pending. She anticipates it will be closer to 6 PM now, but not certain. She states she will call [facility] once it is verified. Pt, son, RITCHIE Phillips, and charge nurse, Odalys, all made aware. Addendum entered by Glendy Ceron 08/12/22 12:57: Pt made aware [facility] can accept him and they are working on making arrangements for transfer there today, w/tentative pick-up time @ 4 PM. Pt voices understanding. Further questions answered. Pt asks for RITCHIE BAIG to contact his son, Jaxon, to notify him. Call placed to pt's son, Jaxon, and he was made aware. He states he has been to [facility] in the past and knows how to get there. He was made aware pt will be going to . Consent form for transfer received from [facility] via fax and has been signed by Dr Jorgensen. Pt sitting up eating lunch at this time. He states he will sign consents for transfer once he is finished eating. RITCHIE BAIG will fax consent to transfer to [facility] once completed. Original Note: RITCHIE BAIG NOTE: Spoke w/Mary @ [facility] ([phone]. Ext: [phone]) She states they can transfer pt to [facility] today, w/tentative pick-up time @ 4 PM. She states she will call this RITCHIE BAIG back w/confirmation of same. Dr Jorgensen made aware. Mary requests the following: copy of pt's chart and COVID results to be faxed to [phone]. Order for COVID test received from Dr Jorgensen. Copy of pt's chart faxed at this time. all radiology reports on disc be sent w/pt. [place] made aware and is working on this. travel consent to be signed and faxed to above # RITCHIE Phillips, made aware pt to be transferred to [place] w/tentative pick-up time @ 4 PM and COVID test to be done. Pt will be going to [facility] @ [facility]. Nurse to call report to: [phone]. Ext: [phone]. Jackelyn UNGERN RN CM
--- NOTE | 2022-08-12 14:17 | DS.PCM_ITS ---
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 EMERGENT Consult: No Notified: Yes Date Notified: 08/11/22 Time Notified: 09:16 Method of Notification: Verbal 08/11/22 12:06 Consult: Oncology/Hematology Routine Consulting Provider: Emmanuel Cuba Reason for Consult: 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 bx 08/11 EMERGENT Consult: No Notified: Yes Date Notified: 08/11/22 Time Notified: 12:07 Method of Notification: phone Reason For Visit: METASTIC CANCER Diagnosis Discharge Diagnosis (1) 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: Status: Acute Code(s): C20 - Malignant neoplasm of rectum; C77.2 - Secondary and unspecified malignant neoplasm of intra-abdominal lymph nodes (2) Constipation: Status: Acute Code(s): K59.00 - Constipation, unspecified (3) Urinary retention: Status: Acute Code(s): R33.9 - Retention of urine, unspecified Plan 1 urinary retention-patient has a Mccloud catheter in place at this time, exact etiology unclear #2 Adenocarcinoma of the ilcneg-ecv-qazidtkjo at this time #3 lymphadenopathy in the left iliac and inguinal regions-this could be indicative of metastatic disease spread, further work-up will need to be carried out #4 lytic areas in the iliac wings-etiology unclear, possibly secondary to metastatic cancer, further work-up will need to be undertaken #5 bipolar disorder-patient will remain on his current medications #6 resting tremor-etiology unclear, patient follows up with the [facility] #7 schizophrenia by history Total clinical time spent by myself addressing the patient's medical issues, reviewing all the data, and collaborating with patient's care team: 35 minutes Medications at Discharge Home Medications benztropine 2 mg tablet 1 mg PO BID 07/15/20 finasteride 5 mg tablet 5 mg PO DAILY 12/08/21 tamsulosin 0.4 mg capsule 0.8 mg PO QHS 12/08/21 buspirone 5 mg tablet 5 mg PO BID 07/02/22 glucosamine sulfate dipotassium Cl 500 mg-chondroitin 400 mg capsule (Glucosamine-Chondroitin DS) 2 cap PO DAILY 08/10/22 paliperidone palmitate 234 mg/1.5 mL intramuscular syringe 234 mg IM 08/10/22 Hospital Course Operations None Procedures - (Biopsy of rectal area) Summary of Care Provided Minutes Spent on Discharge: 32 Hospital Course: This 72-year-old white male was seen in the emergency room at [facility] with a chief complaint of inability to urinate, patient had a Mccloud catheter inserted with 1300 cc of clear urine obtained, patient had a CT of the abdomen and pelvis due to an abnormal rectal exam which indicated there was a possible rectal mass, there was noted to be a mass on the pelvic CT near the rectal area, patient was admitted to [place] [address] and seen in consultation by general surgery who performed a bedside rectal biopsy, this showed chris ocarcinoma of the rectum. Because of the patient's insurance coverage, it was felt prudent to transfer him to a [place] facility for further care including possible radiation and chemotherapy. Patient consented to this. On 08/12/2022, patient was seen and examined:alert, no apparent distress and healthy appearing, patient's affect was flat General Appearance: cooperative, well kempt and well developed Orientation / Consciousness: awake, oriented to person, oriented to place HEENT normocephalic and moist oral mucous membranes Eyes PERRL, EOMs intact bilaterally and conjunctivae normal Neck supple, no JVD, thyroid normal and no carotid bruits General: trachea midline Resp normal respiratory effort and clear to auscultation bilaterally Auscultation: Negative for rales, rhonchi or wheezes Cardio regular rate, regular rhythm, no murmurs, no rub and no gallops GI normal to inspection, nondistended, normoactive bowel sounds, soft to palpation, non-tender and non-distended GI Narrative: Rectal examination was not done on the patient Extremity no clubbing, cyanosis or edema Skin no rashes or lesions noted General Skin Exam: no breakdown Neuro oriented x3, CN's II-XII intact bilaterally, moves all extremities, no focal motor deficits and no sensory deficits noted Sensorium / Orientation: awake, alert, oriented to person, oriented to place, there appear to be mild cognitive/psych impairment Psych Patient's affect was flat Patient was also seen in consultation by oncology while he was hospitalized here. Patient was transferred to the [facility] in stable condition on 08/12/2022 Weight / BMI Weight Weight: 70.2 kg Body Mass Index (BMI) 21.6 ABG / Lab / Microbiology Data Result Diagrams: 08/11/22 05:35 08/11/22 05:35 Laboratory: Laboratory Results - last 24 hr 08/11/22 05:35: Total Bilirubin 0.30, Direct Bilirubin 0.08, AST 17, ALT 14 L, Alkaline Phosphatase 80, Total Protein 6.7, Albumin 2.9 L, Globulin 3.8 Microbiology: Microbiology 08/12/22 13:00 Nasal Secretion SARS-CoV-2 Antigen (Rapid) - Final 08/10/22 16:02 Urine, Catheterized Urine Culture - Final Culture exhibits no growth. Radiography Diagnostic Testing: Radiology Impression Chest/Abdomen/Pelvis CT 08/11/22 13:36 IMPRESSION: 1. Moderate right hydronephroureter. Obstructing stone is not visualized. 2. Multiple lymph nodes in the left inguinal region which are necrotic. These measure 45 mm. Metastatic disease or lymphoma should be considered. 3. Persistent 7 mm hypodense fluid collection in the left perianal region may represent a perianal abscess. 4. Urinary bladder wall has wall thickening. This can be related to a partially contractile state. However, a cystitis is not excluded. Urinalysis should be performed in an effort to exclude cystitis. 5. Lytic lesions in the iliac bones concerning for metastatic foci. 6. There are multiple gallstones. Electronically Signed: Alireza Urrutia MD at 17:27 EDT , Meaningful Use Info Meaningful Use Diagnoses (Choose all that apply): None applicable Discharge Plan Admission Admit Date/Time: 08/11/22 14:52 Attending Provider: Johnny Jorgensen Primary Care Provider: [facility] Consulting Providers: Di Cabral ; George Mallory ; Tyrone Polanco ; Emmanuel Cuba Discharge Orders/Prescriptions Prescriptions: No Action buspirone 5 mg tablet 5 mg PO BID benztropine 2 MG tablet 1 mg PO BID tamsulosin 0.4 mg Capsule 0.8 mg PO QHS finasteride 5 mg Tablet 5 mg PO DAILY Glucosamine-Chondroitin DS 500-400 mg Capsule 2 cap PO DAILY Rx Instructions: give with meal/snack paliperidone palmitate 234 mg/1.5 mL Syringe 234 mg IM Referrals [facility] [[facility] - Disposition Disposition (needs filled in before D/C Order can be placed): Acute Care Hospital Charges/Coding Visit Charges Inpatient E&M: 62386 Disch Hosp >30min
--- NOTE | 2022-08-12 14:25 | CON.PCM.ON_ITS ---
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 -Metastatic adenocarcinoma of the rectum--paraortic LNs and possible bone metastases. -Hydroureter on the right presumably from lymphadenopathy. -Urinary retention. PSA 2.99 ng/mL. -Constipation--resolved. -Anorectal pain. -Rectal bleeding with mild anemia. Recommendations: -Needs bowel regimen such as Miralax and senna daily. -Rectal MRI to more accurately assess local extent of tumor. -Colonoscopy to rule out other potential colonic polyps or tumors. -He is not obstructed and bleeding is not substantial, so reasonable to offer systemic therapy initially once MMR status as well as KRAS, NRAS, BRAF mutations and HER2 overexpression/amplification determined. -I understand he requires transfer to the [place] for further work up and possible initiation of therapy. -Will be happy to treat him locally if [place] approves. -Discussed with Dr. Jorgensen. I spent a total of 75 minutes on the date of the service which included preparing to see the patient, [id number] patient care, completing clinical documentation, obtaining and/or reviewing separately obtained history, performing a medically appropriate examination, counseling and educating the patient/family/caregiver, communicating with other HCPs (not separately reported), independently interpreting results (not separately reported), and communicating results to the patient/family/caregiver. HPI Consult Data Date of Service:: 08/12/22 PCP / Referring Provider: [place] [facility] Attending: Dr. Johnny Jorgensen DO Chief Complaint Chief Complaint: Metastatic rectal cancer. Interval History Interval History: HPI: The patient is a 72-year-old male who presented to the ED via squad on with complaint of weakness and urinary retention. He was alos having rectal bleeding that he attributed to hemorrhoids. He as found to have a perianal mass on exam. CT Pelvis: BOWEL:? Unremarkable as visualized.? No bowel distention.? No focal inflammatory change. APPENDIX:? No evidence of acute appendicitis. INTRAPERITONEAL SPACE:? Unremarkable.? No ascites or other fluid collection.? No free air. BLADDER:? There is a Mccloud catheter within the bladder. There is very small low-density area to the left aspect of the rectum that measures 6 x 7 mm which may represent a tiny perirectal abscess. This is best seen on series 602 image 86 and series 2 image 65. REPRODUCTIVE:? Unremarkable as visualized.? No mass. BONES/JOINTS:? There are small lytic areas seen within the iliac wings bilaterally. SOFT TISSUES:? See above. LYMPH NODES:? There are enlarged lymph nodes seen within the left iliac and inguinal chains with the largest iliac node measuring 5.9 x 2.5 x 4.3 cm in the largest inguinal node measuring 4.0 x 4.1 x 4.5 cm. Several of these lymph nodes have low density centers. CT/Pelvis WITH IV Contrast IMPRESSION: ? 1.? Very small focus of decreased density to the left of the rectum which may represent a small developing perirectal abscess. ? 2.? Extensive adenopathy in the left iliac and inguinal regions which may represent metastatic disease. Further evaluation with CT scan of the abdomen and pelvis may be beneficial. ? 3.? Small lytic areas in the iliac wings possibly representing metastatic disease. Further evaluation with MRI may be beneficial. A punch biopsy of right perianal lesion and left ultrasound-guided inguinal node core biopsy were performed on 08/11/2022. Pathology: A. 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 B. 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 CT C/A/P : LUNGS AND PLEURAL SPACES:? There is no pneumothorax.? There is no demonstrated pleural abnormality.? Emphysema changes in the lung guevara. Right lower lobe and left lower lobe scarring.? No mass. HEART:? There are calcifications of the coronary arteries.? Heart size is normal.? No pericardial effusion. MEDIASTINUM:? Unremarkable.? No mediastinal or hilar adenopathy.? Esophagus is unremarkable.? No hiatal hernia. THYROID:? Unremarkable.? No thyroid lesions. ABDOMEN: LIVER:? Unremarkable.? Normal liver. GALLBLADDER AND BILE DUCTS:? There are multiple gallstones.? No gallbladder distention or wall edema.? No intra- or extrahepatic biliary ductal dilation. PANCREAS:? Unremarkable.? No focal cystic or solid mass.? Normal pancreas. SPLEEN:? There are multiple benign calcified granulomata of the spleen. ADRENALS:? Unremarkable.? Normal bilateral adrenal glands. KIDNEYS AND URETERS:? Moderate right hydronephroureter. Obstructing stone is not visualized.? Normal renal size and position.? No acute findings of the left kidney. STOMACH AND BOWEL:? Stool throughout the colon.? No stomach or bowel distention.? No focal inflammatory change.? Normal visualized stomach. Normal small intestine. PELVIS: APPENDIX:? The appendix is visualized and appears normal. BLADDER:? Urinary bladder wall has wall thickening. This can be related to a partially contractile state. However, a cystitis is not excluded. Urinalysis should be performed in an effort to exclude cystitis.? There is a Mccloud balloon catheter in the urinary bladder. REPRODUCTIVE:? Unremarkable as visualized.? No mass. CHEST, ABDOMEN and PELVIS: INTRAPERITONEAL SPACE:? Unremarkable.? No ascites or other fluid collection.? No free air. BONES/JOINTS:? Lytic lesions in the iliac bones concerning for metastatic foci.? There are degenerative changes of the shoulders.? There are multi-level degenerative changes of the thoracic spine.? There are diffuse degenerative changes of the visualized lumbar spine. SOFT TISSUES:? Persistent 7 mm hypodense fluid collection in the left perianal region may represent a perianal abscess.? There is an umbilical hernia containing fat. VASCULATURE:? There is atherosclerotic calcification of the aortic arch with tortuosity and elongation of the aortic arch and descending thoracic aorta.? There are calcifications of the abdominal aorta. This is consistent for atherosclerotic disease. There is no abdominal aortic aneurysm. LYMPH NODES:? Paulina Aortic adenopathy predominantly on the left side. Largest lymph node is 14 mm. Diffuse adenopathy along the left pelvic sidewall. The largest nodule is 35 mm.? Multiple lymph nodes in the left inguinal region which are necrotic. These measure 45 mm. Metastatic disease or lymphoma should be considered. IMPRESSION: ? 1.? Moderate right hydronephroureter. Obstructing stone is not visualized. ? 2.? Multiple lymph nodes in the left inguinal region which are necrotic. These measure 45 mm. Metastatic disease or lymphoma should be considered. ? 3.? Persistent 7 mm hypodense fluid collection in the left perianal region may represent a perianal abscess. ? 4.? Urinary bladder wall has wall thickening. This can be related to a partially contractile state. However, a cystitis is not excluded. Urinalysis should be performed in an effort to exclude cystitis. ? 5.? Lytic lesions in the iliac bones concerning for metastatic foci. ? 6.? There are multiple gallstones. He had a bowel movement last night. First time in about a week. He is having anal and rectal pain. Has continuous small amount of bloody oozing. Has a very good appetite. Denies nausea. No abdominal pain per se. Advanced Directives Power of Payroll And Benefits Assistant: No Living Will: No [facility] Medical History Arthritis Bipolar disorder Difficulty balancing Fatigue Hemorrhoid Incontinence Sepsis Weakness Home Medications benztropine 2 mg tablet 1 mg PO BID 07/15/20 [History Last Taken 08/10/22] finasteride 5 mg tablet 5 mg PO DAILY 12/08/21 [History Last Taken Unknown] tamsulosin 0.4 mg capsule 0.8 mg PO QHS 12/08/21 [History Last Taken Unknown] buspirone 5 mg tablet 5 mg PO BID 07/02/22 [History Last Taken 08/10/22] glucosamine sulfate dipotassium Cl 500 mg-chondroitin 400 mg capsule (Glucosamine-Chondroitin DS) 2 cap PO DAILY 08/10/22 [History Last Taken Unknown] paliperidone palmitate 234 mg/1.5 mL intramuscular syringe 234 mg IM 08/10/22 [History Last Taken Unknown] Allergy/AdvReac Type Severity Reaction Status Date / Time trifluoperazine Allergy Cramping Verified 08/10/22 15:05 [From [place]] Family History Other Cancer Heart disease Surgical History History of tooth extraction Social History Smoking Status: Former smoker Tobacco: How many years used: 50 alcohol intake: never Physical Exam Const oriented x3 HEENT Mouth: dry mucous membranes Eyes no scleral icterus Neck no lymphadenopathy Lymph Lymphatic Narrative: Tender left inguinal adenopathy with matted nodes. No blood on bandage. Resp normal respiratory effort Cardio regular rhythm GI GI Narrative: Tender in suprapubic area. No mass appreciated. Vital Signs Temperature 97.9 F 08/12/22 09:14 Temperature Source Oral 08/12/22 09:14 Pulse Rate 81 08/12/22 09:14 Pulse Strength Normal (2+) 08/12/22 09:15 Respiratory Rate 18 08/12/22 09:14 Respiratory Effort Non-Labored 08/12/22 09:16 Respiratory Depth Normal 08/12/22 09:16 Respiratory Pattern Normal 08/12/22 09:16 Blood Pressure 124/79 H 08/12/22 09:14 Blood Pressure Mean 94 08/12/22 09:14 Blood Pressure Source Monitor 08/12/22 09:14 Blood Pressure Position Semi-Fowlers 08/12/22 09:14 Blood Pressure Location Left Arm 08/12/22 09:14 Pulse Ox 96 08/12/22 09:14 Oxygen Delivery Method Room Air 08/12/22 13:32 Laboratory Results - last 24 hr 08/11/22 05:35: Total Bilirubin 0.30, Direct Bilirubin 0.08, AST 17, ALT 14 L, Alkaline Phosphatase 80, Total Protein 6.7, Albumin 2.9 L, Globulin 3.8 Microbiology 08/12/22 13:00 Nasal Secretion SARS-CoV-2 Antigen (Rapid) - Final 08/10/22 16:02 Urine, Catheterized Urine Culture - Final Culture exhibits no growth. Diagnostic Data Pelvis CT 08/10/22 17:00 IMPRESSION: 1. Very small focus of decreased density to the left of the rectum which may represent a small developing perirectal abscess. 2. Extensive adenopathy in the left iliac and inguinal regions which may represent metastatic disease. Further evaluation with CT scan of the abdomen and pelvis may be beneficial. 3. Small lytic areas in the iliac wings possibly representing metastatic disease. Further evaluation with MRI may be beneficial. Electronically Signed: Dimas Maki MD at 18:10 EDT , Chest/Abdomen/Pelvis CT 08/11/22 13:36 IMPRESSION: 1. Moderate right hydronephroureter. Obstructing stone is not visualized. 2. Multiple lymph nodes in the left inguinal region which are necrotic. These measure 45 mm. Metastatic disease or lymphoma should be considered. 3. Persistent 7 mm hypodense fluid collection in the left perianal region may represent a perianal abscess. 4. Urinary bladder wall has wall thickening. This can be related to a partially contractile state. However, a cystitis is not excluded. Urinalysis should be performed in an effort to exclude cystitis. 5. Lytic lesions in the iliac bones concerning for metastatic foci. 6. There are multiple gallstones. Electronically Signed: Alireza Urrutia MD at 17:27 EDT ,
[2022-08-12 15:14] VITALS: BP 102/68; PULSE 74; RESP 18; TEMP 36.5; O2SAT 97
[2022-08-12 18:01] VITALS: BP 124/76; PULSE 72; RESP 18; TEMP 36.5; O2SAT 97
[2022-08-13 14:58] LABS: Carcinoembryonic Antigen 3.2 ng/mL (0.0-4.7)
== END 2022-08-12 18:54 | disposition short-term general hospital (02) | DRG 988 ==
LOC: ED 20:11 → MS3 20:45
PROVIDERS: Surgery; Admitting Provider Hospitalist; Emergency Provider Emergency Medicine; Visit Provider Internal Medicine
DX: R33.9 Retention of urine, unspecified (principal); C20 Malignant neoplasm of rectum; C77.4 Secondary and unspecified malignant neoplasm of inguinal and lower limb lymph nodes; C79.51 Secondary malignant neoplasm of bone; N13.4 Hydroureter; E87.6 Hypokalemia; D64.9 Anemia, unspecified; F31.9 Bipolar disorder, unspecified; K59.00 Constipation, unspecified; K80.20 Calculus of gallbladder without cholecystitis without obstruction; G25.2 Other specified forms of tremor; Z87.891 Personal history of nicotine dependence
CPT/HCPCS: 36415; 51702; 71260; 72193; 74177; 80048; 80076; 81001; 82378; 84153; 85025; 87086; 87088; 87426; 88305; 88313; 88331; 88341; 88342; 97802; 99285; J7030; Q9967; A4216

== ENCOUNTER 2022-09-13 08:22 | Inpatient (IN) | payer OTHER, SELFPAY ==
[2022-09-13] VITALS (11 sets, daily range): BP systolic 100–142; BP diastolic 62–86; PULSE 84–103; RESP 14–18; TEMP 36.5–36.6; O2SAT 87–98; BMI 23.4; BMI 21.8
--- NOTE | 2022-09-13 08:42 | EX.ED.GENINJ ---
HPI History of Present Illness Chief Complaint: Other, Pain/Inj Narrative Narrative: 72-year-old male here with left groin pain swelling and redness. Notes symptoms began this morning. Denies any recent chemo, surgery, estrogen use, hemoptysis. Denies chest pain or shortness of breath. Denies history of PE or DVT. Notes pain starts in her left groin and radiates down left leg. No recent trauma. Denies any trouble urinating. States has a chronic Mccloud catheter has not been replaced in several weeks. Denies any fever. Denies any cough. Denies any testicular pain. [facility] Medical History (Updated 09/13/22 @ 11:[address] Farhat Jade DO) Arthritis Bipolar disorder Difficulty balancing Fatigue Hemorrhoid Incontinence Rectal cancer Sepsis Weakness Home Medications benztropine 2 mg tablet 1 mg PO BID 07/15/20 [History Last Taken 09/12/22] finasteride 5 mg tablet 5 mg PO DAILY 12/08/21 [History Last Taken 09/12/22] tamsulosin 0.4 mg capsule 0.8 mg PO QHS 12/08/21 [History Last Taken 09/12/22] buspirone 5 mg tablet 5 mg PO BID 07/02/22 [History Last Taken 09/12/22] glucosamine sulfate dipotassium Cl 500 mg-chondroitin 400 mg capsule (Glucosamine-Chondroitin DS) 2 cap PO DAILY 08/10/22 [History Last Taken 09/12/22] paliperidone palmitate 234 mg/1.5 mL intramuscular syringe 234 mg IM QMONTH 08/10/22 [History Last Taken Unknown] multivitamin 1 tab PO DAILY SUPPLEMENT 09/13/22 [History Last Taken 09/12/22] Allergy/AdvReac Type Severity Reaction Status Date / Time trifluoperazine Allergy Cramping Verified 08/10/22 15:05 [From Stelazine] Family History Other Cancer Heart disease Surgical History History of tooth extraction Social History Smoking Status: Former smoker Tobacco: How many years used: 50 alcohol intake: never ROS ROS ED ROS Narrative Constitutional: Denies fever HEENT: Denies sore throat Neck: Denies neck pain Cardiovascular: Denies chest pain, syncope Respiratory: Denies shortness of breath GI: Denies nausea vomiting or abdominal pain : Denies changes in urinary habits, endorses groin swelling Musculoskeletal: Denies muscle or joint pain, endorses left leg swelling Neurologic: Denies numbness weakness or loss of sensation Skin denies rash EXAM Physical Exam Narrative Exam Narrative: Nursing triage notes reviewed, Vital signs reviewed Constitutional: please see mdm HENT: MMM Eyes: Pupils equal round and reactive to light, Extraocular muscles intact Neck: No stridor, no JVD, full neck ROM Lungs: Clear to auscultation, No wheezing or rales. No increased work of breathing, no conversational dyspnea, no accessory muscle use, no nasal flaring. No respiratory distress noted. Port noted in the right chest clean dry intact with no erythema fluctuance or induration Heart: Regular rate and rhythm, No murmurs, No rubs and No gallops, 2+ distal pulses (radial, femoral, posterior tibial) in all extremities Abdomen: Soft, there is no tenderness, rigidity, rebound or guarding, no obvious peritoneal signs, no palpable pulsatile abdominal masses, no auscultated abdominal bruit : No CVAT, intertriginous changes in the left groin suggestive of tinea cruris Extremities: 2+ pitting edema left lower extremity, left lower extremity obviously larger than right. Compartments are soft. Neuro: N intact sensation L1-S1 dermatomal distributions. Intact 5/5 strength in hip flexion (T12-L3). Knee extension (L2-L4). Ankle dorsiflexion (L4-L5). Ankle plantar flexion (S1). Great toe extension (L5). 2+ patellar and Achilles DTRs. Skin: Redness noted in left groin. Chronic appearing lesion noted over the coccyx and rectum, no acute infection no induration fluctuance or purulent discharge noted Const Vital Signs: 09/13/22 08:23 09/13/22 08:53 09/13/22 08:53 Temperature 97.9 F Temperature Source Oral Pulse Rate 103 H 97 Respiratory Rate 16 16 Respiratory Pattern Normal Blood Pressure 142/86 H 100/72 Blood Pressure Mean 104 81 Pulse Ox 98 90 Oxygen Delivery Method Room Air Room Air Oxygen Flow Rate (L/min) 09/13/22 09:10 09/13/22 09:16 09/13/22 09:17 Temperature Temperature Source Pulse Rate Respiratory Rate Respiratory Pattern Blood Pressure Blood Pressure Mean Pulse Ox 87 93 93 Oxygen Delivery Method Room Air Nasal Cannula Nasal Cannula Oxygen Flow Rate (L/min) 2 2 09/13/22 11:04 Temperature Temperature Source Pulse Rate 87 Respiratory Rate 14 Respiratory Pattern Blood Pressure 116/72 Blood Pressure Mean 86 Pulse Ox 91 Oxygen Delivery Method Nasal Cannula Oxygen Flow Rate (L/min) 2 MDM MDM MDM Narrative Medical decision making narrative: Chief Complaint: Groin pain External records reviewed: Last ED visit in July 2022 for difficulty with urination Status post punch biopsy of left inguinal lymph node in July 2022 MDM: Patient was hemodynamically stable, afebrile, nontoxic-appearing. Exam consistent with tinea cruris (will give nystatin powder), left inguinal lymphadenopathy. No hernia noted. Left leg was diffusely swollen with no calf tenderness or color changes. Left lower extremity was neurovascularly intact. Of note patient had lower than usual blood pressure and had new onset hypoxia. I considered the following differential diagnosis: Tinea cruris, hernia, orchitis, epididymitis, cellulitis, abscess, DVT, PE, arrhythmia, myocardial ischemia, pneumonia, COVID, anemia I considered obtaining a testicular ultrasound however on exam patient no testicular tenderness, skin changes or discharge. I have a low suspicion for orchitis or epididymitis at this time. I obtained a duplex ultrasound, replace the patient's Mccloud. Given patient's new onset hypoxia is placed on nasal cannula oxygen. A broad lab and imaging work-up was undertaken to further elucidate the etiology the patient's complaints. Labs and images were remarkable for no evidence of severe inflammation, severe no anemia, no evidence of electrolyte normalities, dehydration, myocardial ischemia, volume overload or right heart strain. DVT ultrasound was negative for acute DVT. CT scan showed evidence of pulmonary embolism. Patient started heparin (no bleeding diathesis noted per patient including ICH, GI bleeding etc.). While the patient's DVT study was negative I suspect his left lower extremity swelling is secondary to likely DVT that migrated to form his pulmonary emboli. This is likely further exacerbated by his history of cancer. Given hypoxia, new oxygen requirement and PE patient was admitted here for evaluation, monitoring and transition to oral anticoagulation. [facility] We cleared his admission with the [facility] prior to calling hospitalist. I discussed the case with the hospitalist. Factors affecting care: History of rectal cancer Social determinants of health: Former smoker History obtained from others: Shared decision making: I will have a discussion with the patient and or visitors regarding risk/benefits of further testing or admission. They will be made aware of of the risk/benefits inherent in this decision they will be given the opportunity to voice understanding. Consults: Internal medicine Lab Data Attestation: I reviewed the patient's lab results. Lab results narrative: EKG with sinus tachycardia, normal axis, normal intervals, no STEMI, no signs of right heart strain. No significant changes from prior EKG in November 2021 DVT ultrasound negative for acute DVT CBC with no leukocytosis, mild anemia (similar to baseline), no thrombocytopenia BMP without evidence of significant electrolyte abnormalities, no anion gap, no acute kidney injury. Troponin is negative, no evidence of myocardial ischemia BNP within normal limit suggestive of no severe volume overload or right heart strain Labs: Laboratory Results - last 24 hr 09/13/22 09/13/22 09/13/22 09:40 09:40 09:40 WBC 8.8 RBC 4.22 L Hgb 11.7 L Hct 35.6 L MCV 84.4 MCH 27.7 MCHC 32.9 RDW Std Deviation 41.3 RDW Coeff of Edi 13.4 Plt Count 284 MPV 9.2 Immature Gran % (Auto) 0.500 Neut % (Auto) 70.8 H Lymph % (Auto) 15.5 L [place] % (Auto) 10.0 Eos % (Auto) 2.7 Baso % (Auto) 0.5 Absolute Neuts (auto) 6.2 Absolute Lymphs (auto) 1.36 Nucleated RBC % 0 PT INR APTT Sodium 136 Potassium 3.9 Chloride 105 Carbon Dioxide 25.0 Anion Gap 6 BUN 9 Creatinine 0.77 Estim Creat Clear Calc 71.12 Est GFR (MDRD) Af Amer 128 Est GFR (MDRD) Non-Af 105 BUN/Creatinine Ratio 11.7 Glucose 116 H Calcium 9.1 Troponin I High Sens 6 B-Natriuretic Peptide 14.9 09/13/22 09:40 WBC RBC Hgb Hct MCV MCH MCHC RDW Std Deviation RDW Coeff of Edi Plt Count MPV Immature Gran % (Auto) Neut % (Auto) Lymph % (Auto) [place] % (Auto) Eos % (Auto) Baso % (Auto) Absolute Neuts (auto) Absolute Lymphs (auto) Nucleated RBC % PT 14.6 INR 1.1 APTT 39.1 H Sodium Potassium Chloride Carbon Dioxide Anion Gap BUN Creatinine Estim Creat Clear Calc Est GFR (MDRD) Af Amer Est GFR (MDRD) Non-Af BUN/Creatinine Ratio Glucose Calcium Troponin I High Sens B-Natriuretic Peptide Discharge Plan Triage Chief Complaint: Other, Pain/Inj ED Provider: Farhat Jade Dx/Rx/DC Orders Clinical Impression: Hypoxia, Leg edema, left, Pulmonary embolism Prescriptions: No Action buspirone 5 mg tablet 5 mg PO BID benztropine 2 MG tablet 1 mg PO BID tamsulosin 0.4 mg Capsule 0.8 mg PO QHS finasteride 5 mg Tablet 5 mg PO DAILY Glucosamine-Chondroitin DS 500-400 mg Capsule 2 cap PO DAILY Rx Instructions: give with meal/snack paliperidone palmitate 234 mg/1.5 mL Syringe 234 mg IM QMONTH multivitamin Tablet 1 tab PO DAILY Primary Care Provider: [facility] Referrals: [facility] [Primary Care Provider] - Disposition Disposition: Acute Care Hospital [facility]
--- NOTE | 2022-09-13 08:59 | VDLE_ITS ---
Reason For Study: Swelling Procedure LEFT This is a venous duplex using B-mode, color GSV is normal. flow and spectral Doppler. CFV visualized with color only appear patent. Exam performed portable in ED. Normal venous flow with augmentation. S/P biopsy of left inguinal lymph node. Nonvascularized structures noted in the left Unable to compress CFV due to pain. groin. A preliminary report was called and/or faxed FV is compressible, spontaneous, phasic, to Dr. Jade. competent and demonstrates normal augmentation. POP V is compressible, spontaneous, phasic, competent and demonstrates normal augmentation. T/P Trunk is compressible. PTV is compressible. LT PerV is compressible. VL/Venous Duplex US, Unilateral Interpretation Summary There is no evidence of left lower extremity deep vein thrombosis. Left great s aphenous vein appears patent and compressible segmentally. Left groin 1.86 x 3.58 x 3.7 cm and 2.1 x 2.35 x 3.07 cm nonvascular structures. Clinical correlation would be appropriate. Ordering Physician: Farhat Jade Referring Physician: [facility] Performed By: Yolanda Acosta RVT
--- NOTE | 2022-09-13 09:08 | CT_ITS ---
STUDY: CTA CHEST REASON FOR EXAM: Male, 72 years old. Hypoxia, unilateral leg swelling, rule out PE RADIATION DOSAGE (If Supplied By Facility): CTDIvol = ( 10.81 ) mGy, DLP = ( 375.66 ) mGycm TECHNIQUE: The examination was performed with the intravenous administration of IV 100mL Isovue-370. Post-processing of the angiographic images was performed, with multiplanar reformation and 3D reconstruction. Individualized dose optimization techniques were used for this CT. COMPARISON: Chest x-ray dated December 08, 2021. CT of the chest abdomen and pelvis dated August 11, 2022 FINDINGS: Nonocclusive emboli are present in multiple peripheral branches of the right pulmonary artery supplying the right upper and middle lobes. No left pulmonary artery emboli present. Multiple tree-in-bud nodular opacities with superimposed interstitial thickening and groundglass edema are scattered throughout the bilateral upper lobes, right greater than left suggesting a developing endobronchial infectious or inflammatory process. Small nodular areas of fibrosis are seen in the right lower lobe. A cluster of irregular shaped nodules are seen in the posterior basilar segment of the right lower lobe and associated with mild pleural thickening. A similar but less pronounced appearance is also present in the left lung base. A small cluster of slightly dense nodules are seen in the lateral subpleural region of the left lower lobe see image #71/24 series 2. The lungs are hyperinflated with diffuse cystic emphysematous changes. The patient should be a rolled in the CT lung cancer screening program and in initial PET/CT evaluation is recommended to ensure none of the nodular densities represent occult malignancy. This is particularly of concern given the bulky mediastinal and hilar lymphadenopathy present on the current study. There are no signs of right heart strain including atrial or ventricular enlargement or pericardial effusion or intrahepatic reflux. Normal enhancement of the main pulmonary artery and right and left pulmonary arteries. There is atherosclerotic calcification of the aortic arch with tortuosity. There is no demonstrated aortic dissection. Normal heart and pericardium. There are calcifications of the coronary arteries. Normal visualized trachea and bronchi. Normal chest wall structures. There are degenerative changes of thoracic spine. Unremarkable visualized upper abdomen. Multiple splenic calcified granulomata noted. CT/CTA Chest W/WO Contrast IMPRESSION: 1. Nonocclusive emboli are present in multiple peripheral branches of the right pulmonary artery supplying the right upper and middle lobes. No left pulmonary artery emboli present. 2. Multiple tree-in-bud nodular opacities with superimposed interstitial thickening and groundglass edema are scattered throughout the bilateral upper lobes, right greater than left suggesting a developing endobronchial infectious or inflammatory process. 3. Small nodular areas of fibrosis are seen in the right lower lobe. A cluster of irregular shaped nodules are seen in the posterior basilar segment of the right lower lobe and associated with mild pleural thickening. A similar but less pronounced appearance is also present in the left lung base. 4. A small cluster of slightly dense nodules are seen in the lateral subpleural region of the left lower lobe see image #71/24 series 2. 5. The lungs are hyperinflated with diffuse cystic emphysematous changes. 6. The patient should be a rolled in the CT lung cancer screening program and in initial PET/CT evaluation is recommended to ensure none of the nodular densities represent occult malignancy. This is particularly of concern given the bulky mediastinal and hilar lymphadenopathy present on the current study. N.B. : The above Results were Read Back by Zackary Galicia MD to Farhat Jade DO, and understanding confirmed on 09/13/2022 10:51:58 (ET). Electronically Signed: Zackary Galicia MD at 10:55 EDT ,
[2022-09-13 09:49] LABS: Absolute Lymphocyte Count 1.36 X10^3/uL (0.83-4.51); Absolute Neutrophil Count 6.2 X10^3/uL (2.0-7.7); Basophil# 0.04 X10^3/uL; Basophil% 0.5 % (0-1); Eosinophil# 0.24 X10^3/uL; Eosinophils% 2.7 % (0-5); Hematocrit 35.6 % (40-54); Hemoglobin 11.7 g/dL (13.0-16.5); Lymphocyte # 1.36 X10^3/ul (0.83-4.51); Lymphocyte % 15.5 % (19-41); Mean Corp Hgb Conc 32.9 g/dL (32-36); Mean Corpuscular Hgb 27.7 pg (27.0-32.0); Mean Corpuscular Volume 84.4 fL (80-94); Mean Platelet Vol. 9.2 fl (6.2-12.0); Monocyte# 0.88 X10^3/uL; NRBC Flagged by Analyzer 0 % (0-5); Neutrophil # 6.21 X10^3/uL (2.7-7.7); Neutrophil % 70.8 % (47-70); Platelet Count 284 K/mm3 (150-450); RBC Distribution Width CV 13.4 % (11.6-14.6); RBC Distribution Width SD 41.3 fl (35.1-43.9); Red Blood Count 4.22 M/mm3 (4.6-6.2); White Blood Count 8.8 K/mm3 (4.4-11.0)
[2022-09-13 10:11] LABS: BNP,B-Type NATRIURETIC PEPTIDE 14.9 pg/mL (0-100)
[2022-09-13 10:12] LABS: Anion Gap 6 (5-15); BUN 9 mg/dL (7-18); BUN/Creat Ratio 11.7 RATIO (10-20); Calcium,Total 9.1 mg/dL (8.5-10.1); Chloride 105 mmol/L (98-107); Creatinine, Serum 0.77 mg/dL (0.70-1.30); EST Glomerular Filtration Rate 105 mL/min (>60); Est Glom Filt Rate - Afr Amer 128 mL/min (>60); Estimated Creatinine Clearance 71.12 ml/min; Glucose 116 mg/dL (74-106); Potassium 3.9 mmol/L (3.5-5.1); Sodium Level 136 mmol/L (136-145); Troponin-I HS 6 pg/mL (3.0-78.0)
--- NOTE | 2022-09-13 11:02 | PCM.HP.STD ---
[facility] - General General Date of Admission: 09/13/22 Date of Service: 09/13/22 Chief Complaint: left groin pain, swelling and redness HPI Narrative DMITRI JACOBS, is a 72 M with a PMH as outlined who presents via the ED on 09/13/2022 with a complaint of left groin pain, redness and swelling. He has a PMH of metastatic rectal cancer. He also complained of feeling tired and fatigued. He denied feeling short of breath and denied any cough, chest pain, palpitations, dizziness, nausea or vomiting. He said he recently had a biopsy of lymph nodes done in his left groin and subsequently noted that his entire left leg was swelling that is why he came into the ED. Review of systems is otherwise negative. Vitals were temp of 97.9F, [place] of 97, FREIGHT LOADER of 100/72, pulse ox of 87% on room air, and required 2L of oxygen to bring him up to 93%. CBC showed Hb of 11.7, wbc of 8.8 and platelets of 284. Chemistry was unremarkable. CTA was read unofficially as having some subsegmental PE. He was started on heparin drip and is being admitted to be managed for PE. [facility] Medical History Arthritis Bipolar disorder Difficulty balancing Fatigue Hemorrhoid Incontinence Rectal cancer Sepsis Weakness Home Medications benztropine 2 mg tablet 1 mg PO BID 07/15/20 [History Last Taken 09/12/22] finasteride 5 mg tablet 5 mg PO DAILY 12/08/21 [History Last Taken 09/12/22] tamsulosin 0.4 mg capsule 0.8 mg PO QHS 12/08/21 [History Last Taken 09/12/22] buspirone 5 mg tablet 5 mg PO BID 07/02/22 [History Last Taken 09/12/22] glucosamine sulfate dipotassium Cl 500 mg-chondroitin 400 mg capsule (Glucosamine-Chondroitin DS) 2 cap PO DAILY 08/10/22 [History Last Taken 09/12/22] paliperidone palmitate 234 mg/1.5 mL intramuscular syringe 234 mg IM QMONTH 08/10/22 [History Last Taken Unknown] multivitamin 1 tab PO DAILY SUPPLEMENT 09/13/22 [History Last Taken 09/12/22] Allergy/AdvReac Type Severity Reaction Status Date / Time trifluoperazine Allergy Cramping Verified 08/10/22 15:05 [From [place]] Family History Other Cancer Heart disease Surgical History History of tooth extraction Social History Smoking Status: Former smoker Tobacco: How many years used: 50 alcohol intake: never ROS Constitutional Constitutional: Reports fatigue, malaise and weakness; Denies anorexia, change in weight, chills or fever(s) Eyes Eyes: Denies change in vision ENT HEENT: Denies dysphagia or headache(s) Cardiovascular Cardiovascular: Denies chest pain, dyspnea on exertion, edema, lightheadedness, orthopnea, palpitations, paroxysmal nocturnal dyspnea or rapid heart rate Respiratory/Chest Respiratory/Chest: Denies cough, dyspnea, hemoptysis, productive cough, shortness of breath at rest, shortness of breath with exertion or wheezing Gastrointestinal Gastrointestinal: Denies abdominal pain, constipation, nausea or vomiting Genitourinary Genitourinary: Denies burning urination or dysuria Musculoskeletal Musculoskeletal: Denies arthralgias or back pain Neurologic Neurologic: Denies confusion, dizziness, headache(s) or seizure-like activity Psychiatric Psychiatric: Denies anxiety or depression Endocrine Endocrinology: Denies change in body appearance Hematologic/Lymphatic Hematologic/Lymphatic: Denies anemia Vital Signs Vital Signs Vital Signs: 09/13/22 08:23 09/13/22 08:53 09/13/22 08:53 Temperature 97.9 F Temperature Source Oral Pulse Rate 103 H 97 Respiratory Rate 16 16 Respiratory Pattern Normal Blood Pressure 142/86 H 100/72 Blood Pressure Mean 104 81 Pulse Ox 98 90 Oxygen Delivery Method Room Air Room Air Oxygen Flow Rate (L/min) 09/13/22 09:10 09/13/22 09:16 09/13/22 09:17 Temperature Temperature Source Pulse Rate Respiratory Rate Respiratory Pattern Blood Pressure Blood Pressure Mean Pulse Ox 87 93 93 Oxygen Delivery Method Room Air Nasal Cannula Nasal Cannula Oxygen Flow Rate (L/min) 2 2 Weight Weight: 167 lb 15.876 oz Body Mass Index (BMI) 23.4 Physical Exam Const alert, oriented x3 and no apparent distress Constitutional Narrative: frail HEENT normocephalic, head/scalp atraumatic, hearing grossly normal bilaterally and moist oral mucous membranes Mouth: oral and palatal mucosa normal Neck no lymphadenopathy and supple Resp Resp Narrative: mildly diminished breath sounds bibasally, no wheezes or crackles. Cardio regular rate, regular rhythm, S1 normal heart sound, S2 normal heart sound and no murmurs GI normal to inspection, nondistended, normoactive bowel sounds, soft to palpation and non-tender Extremity Extremity Narrative: LLE swollen, mild fluctuance in the groin, no calf tenderness. Neuro oriented x3, CN's II-XII intact bilaterally, moves all extremities and no focal motor deficits Sensorium / Orientation: awake Motor Exam: strength 5/5 throughout Psych affect normal Results Lab / Micro Data Result Diagrams: 09/13/22 09:40 09/13/22 09:40 Labs: Laboratory Results - last 24 hr 09/13/22 09:40: WBC 8.8, RBC 4.22 L, Hgb 11.7 L, Hct 35.6 L, MCV 84.4, MCH 27.7, MCHC 32.9, RDW Std Deviation 41.3, RDW Coeff of Edi 13.4, Plt Count 284, MPV 9.2, Immature Gran % (Auto) 0.500, Neut % (Auto) 70.8 H, Lymph % (Auto) 15.5 L, [place] % (Auto) 10.0, Eos % (Auto) 2.7, Baso % (Auto) 0.5, Absolute Neuts (auto) 6.2, Absolute Lymphs (auto) 1.36, Nucleated RBC % 0 09/13/22 09:40: Sodium 136, Potassium 3.9, Chloride 105, Carbon Dioxide 25.0, Anion Gap 6, BUN 9, Creatinine 0.77, Estim Creat Clear Calc 71.12, Est GFR (MDRD) Af Amer 128, Est GFR (MDRD) Non-Af 105, BUN/Creatinine Ratio 11.7, Glucose 116 H, Calcium 9.1, Troponin I High Sens 6 09/13/22 09:40: B-Natriuretic Peptide 14.9 Micro: Microbiology 09/13/22 09:40 Nasal Secretion SARS-CoV-2 & FLU Antigen (Rapid) - Final Assessment & Plan Assessment/Plan (1) 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 CT of the chest showed evidence of PE. Currently on heparin drip. Breathing treatments bronchodilators. Titrate oxygen to maintain saturation above 90%. Duplex of the left lower extremity was negative for any evidence of PE but showed a 1.8 x 3.58 x 3.7 and 2.1 x 2.35 x 3.07 cm nonvascular structure in the left groin. This likely the lymph nodes that were biopsied. #. History of rectal cancer: States he follows up at the [facility]. He states he has not yet seen an oncologist though he has a port in. Currently stable. Follow-up with oncology on outpatient basis #Schizophrenia: On paliperidone and benztropine #History of urinary retention: Has Mccloud catheter in place. #Resting tremor: stable. DVT prophylaxis: On heparin drip CODE STATUS: Full code Patient counseled extensively about different types of CODE STATUS including full code, DNR CCA and DNR CCA. Patient elects to be full code. Total [id number] time 17 minutes. Total time spent on evaluation and management of patient, reviewing chart and specialist notes, discussing plan with patient, discussion with nursing and ancillary staff as well as documentation: 78 mins Charges/Coding Visit Charges Inpatient E&M: 98220 Init Hosp L3 Procedures Hospitalists Procedures: 53319 Advncd Care Plan 30 Min
--- NOTE | 2022-09-13 11:05 | ED.RN ---
PATIENT WITH OPEN WOUND TO RECTUM AND SACRUM. PATIENT STATES THIS IS CHRONIC. PATIENT WITH HISTORY OF RECTAL CANCER. BARRIER CREAM APPLIED TO RECTUM AND MEPLIX APPLIED TO SACRUM. DR. PHAM NOTIFIED.
--- NOTE | 2022-09-13 11:09 | ED.RN ---
[facility] # [id number]
[2022-09-13 11:21] LABS: International Normalized Ratio 1.1; Prothrombin Time (Protime)PT. 14.6 SECONDS (11.7-14.9)
[2022-09-13 11:22] LABS: Partial Thromboplast Time 39.1 Seconds (24.1-36.2)
[2022-09-13] MEDS: Heparin Injection (Vial) 5,000 UNIT/ML VIAL IV (11:38)
[2022-09-13] MEDS: HEPARIN/D5w 25,000 UNITS 25,000 UNITS/250 ML IV.SOLN. 11 UNITS CONT INF (11:38)
[2022-09-13] MEDS: oxyCODONE 5 MG Tablet PO ×2 (14:54→19:16)
[2022-09-13] MEDS: Acetaminophen 325 MG Tablet 650 MG PO (14:54)
[2022-09-13 15:31] LABS: Troponin-I HS 6 pg/mL (3.0-78.0)
[2022-09-13] MEDS: Nystatin Powder 15gm Bottle 1 APPLIC TOPICAL (15:36)
[2022-09-13] MEDS: 0.9% Normal Saline 1,000 ML 125 ML IV ×2 (15:36→22:32)
[2022-09-13 16:43] LABS: Magnesium 2.1 mg/dL (1.6-2.6)
[2022-09-13 17:15] LABS: Troponin-I HS 7 pg/mL (3.0-78.0)
[2022-09-13] MEDS: Bisacodyl 5 MG Tablet PO (17:28)
[2022-09-13 17:48] LABS: Partial Thromboplast Time 66.4 Seconds (24.1-36.2)
[2022-09-13] MEDS: busPIRone 5 MG Tablet PO (22:33)
[2022-09-13] MEDS: Tamsulosin HCl 0.4 MG Capsule 0.8 MG PO (22:33)
[2022-09-13] MEDS: Benztropine 2 MG Tablet 1 MG PO (22:34)
[2022-09-14] VITALS (7 sets, daily range): BP systolic 105–122; BP diastolic 55–70; PULSE 81–94; RESP 16–18; TEMP 36.8–37.2; O2SAT 93–98
[2022-09-14 00:35] LABS: Partial Thromboplast Time 56.1 Seconds (24.1-36.2)
[2022-09-14 06:39] LABS: Absolute Lymphocyte Count 1.59 X10^3/uL (0.83-4.51); Absolute Neutrophil Count 6.7 X10^3/uL (2.0-7.7); Basophil# 0.05 X10^3/uL; Basophil% 0.5 % (0-1); Eosinophil# 0.18 X10^3/uL; Eosinophils% 1.9 % (0-5); Hematocrit 34.7 % (40-54); Hemoglobin 11.3 g/dL (13.0-16.5); Lymphocyte # 1.59 X10^3/ul (0.83-4.51); Lymphocyte % 16.7 % (19-41); Mean Corp Hgb Conc 32.6 g/dL (32-36); Mean Platelet Vol. 9.3 fl (6.2-12.0); Monocyte# 0.98 X10^3/uL; Monocyte% 10.3 % (0-10); NRBC Flagged by Analyzer 0 % (0-5); Neutrophil # 6.67 X10^3/uL (2.7-7.7); Neutrophil % 70.3 % (47-70); Platelet Count 264 K/mm3 (150-450); RBC Distribution Width CV 13.5 % (11.6-14.6); Red Blood Count 4.18 M/mm3 (4.6-6.2); White Blood Count 9.5 K/mm3 (4.4-11.0)
[2022-09-14 07:04] LABS: Anion Gap 8 (5-15); BUN 6 mg/dL (7-18); BUN/Creat Ratio 9.2 RATIO (10-20); Calcium,Total 8.7 mg/dL (8.5-10.1); Chloride 104 mmol/L (98-107); Creatinine, Serum 0.65 mg/dL (0.70-1.30); EST Glomerular Filtration Rate 128 mL/min (>60); Est Glom Filt Rate - Afr Amer 155 mL/min (>60); Estimated Creatinine Clearance 66.96 ml/min; Glucose 125 mg/dL (74-106); Potassium 3.7 mmol/L (3.5-5.1); Sodium Level 135 mmol/L (136-145)
[2022-09-14] MEDS: oxyCODONE 5 MG Tablet PO ×2 (07:58→14:36)
[2022-09-14] MEDS: busPIRone 5 MG Tablet PO ×2 (07:58→22:16)
[2022-09-14] MEDS: Benztropine 2 MG Tablet 1 MG PO ×2 (07:58→22:15)
[2022-09-14] MEDS: Finasteride 5 MG Tablet PO (07:59)
[2022-09-14] MEDS: HEPARIN/D5w 25,000 UNITS 25,000 UNITS/250 ML IV.SOLN. 12 UNITS CONT INF (09:46)
[2022-09-14] MEDS: Heparin Injection (Vial) 5,000 UNIT/ML VIAL IV (09:46)
--- NOTE | 2022-09-14 09:54 | PN_ITS ---
Subjective Subjective Patient seen and examined. He says he is feeling better this morning. His breathing has improved. He states he is having some pain in his rib area. Denies any chest pain, palpitations or dizziness, nausea or vomiting. Review of systems otherwise negative. He is on 2 L of oxygen. Objective Data Objective Data Vital Signs: Vital Signs Temp Pulse Resp BP Pulse Ox O2 Del Method O2 Flow Rate 98.3 F 92 16 105/68 95 Nasal Cannula 2 09/14/22 07:47 09/14/22 07:47 09/14/22 07:47 09/14/22 07:47 09/14/22 07:51 09/14/22 08:17 09/14/22 08:17 Oxygen Flow Rate (L/min) 2 Oxygen Delivery Method Nasal Cannula Weight: 156 lb 4.924 oz Body Mass Index (BMI) 21.8 Intake & Output: Intake and Output for Last 24 Hours 09/12/22 09/13/22 09/14/22 23:59 23:59 23:59 Intake Total 1381.20 / 1381.20 1110.27 / 1110.27 Output Total 200 / 800 600 / 600 Balance 1181.20 / 581.20 510.27 / 510.27 Medical Nutrition Assessment Dietitian: Malnutrition Criteria Met Start: 09/13/22 14:28 Freq: Status: Active Protocol: Document 09/13/22 14:28 JOLIE (Rec: 09/13/22 14:28 [facility] [id number]) Nutrition Malnutrition Evidence of Malnutrition Exists Yes Malnutrition (severe): Acute Illness/Injury Evidenced By Suboptimal Energy Intake ( Severe),Weight Loss (Severe) Clinical Problem Acute Disease or Injury Related Malnutrition Etiology related to decrease in appetite and inadequate energy intake d/t issues w/ constipation Signs/Symptoms as evidenced by <50% po intake and 5.3% unintended wt loss in <1 week. Status Active Problem Recommendation Dietitian Recommendations/Changes As medically able, rec PETER to liberal Regular w/ 8 oz chocolate ensure plus high protein 3x/day w/ meals d/t signs and symptoms of malnutrition Lab / Micro Data Result Diagrams: 09/14/22 06:30 09/14/22 06:30 Labs: Laboratory Results - last 24 hr 09/13/22 09:40: Sodium 136, Potassium 3.9, Chloride 105, Carbon Dioxide 25.0, Anion Gap 6, BUN 9, Creatinine 0.77, Estim Creat Clear Calc 71.12, Est GFR (MDRD) Af Amer 128, Est GFR (MDRD) Non-Af 105, BUN/Creatinine Ratio 11.7, Glucose 116 H, Calcium 9.1, Troponin I High Sens 6 09/13/22 09:40: B-Natriuretic Peptide 14.9 09/13/22 09:40: PT 14.6, INR 1.1, APTT 39.1 H 09/13/22 14:50: Troponin I High Sens 6 09/13/22 14:50: Magnesium 2.1 09/13/22 16:00: Troponin I High Sens 7 09/13/22 17:20: APTT 66.4 H 09/13/22 23:15: APTT 56.1 H 09/14/22 06:30: WBC 9.5, RBC 4.18 L, Hgb 11.3 L, Hct 34.7 L, MCV 83.0, MCH 27.0, MCHC 32.6, RDW Std Deviation 41.0, RDW Coeff of Edi 13.5, Plt Count 264, MPV 9.3, Immature Gran % (Auto) 0.300, Neut % (Auto) 70.3 H, Lymph % (Auto) 16.7 L, [place] % (Auto) 10.3 H, Eos % (Auto) 1.9, Baso % (Auto) 0.5, Absolute Neuts (auto) 6.7, Absolute Lymphs (auto) 1.59, Nucleated RBC % 0 09/14/22 06:30: Sodium 135 L, Potassium 3.7, Chloride 104, Carbon Dioxide 23.0, Anion Gap 8, BUN 6 L, Creatinine 0.65 L, Estim Creat Clear Calc 66.96, Est GFR (MDRD) Af Amer 155, Est GFR (MDRD) Non-Af 128, BUN/Creatinine Ratio 9.2 L, Glucose 125 H, Calcium 8.7 09/14/22 06:30: APTT 46.0 H Micro: Microbiology 09/13/22 09:40 Nasal Secretion SARS-CoV-2 & FLU Antigen (Rapid) - Final Radiography Diagnostic Testing: Radiology Impression Venous Doppler Study 09/13/22 08:59 Interpretation Summary There is no evidence of left lower extremity deep vein thrombosis. Left great saphenous vein appears patent and compressible segmentally. Left groin 1.86 x 3.58 x 3.7 cm and 2.1 x 2.35 x 3.07 cm nonvascular structures. Clinical correlation would be appropriate. Ordering Physician: Farhat Jade Referring Physician: [facility] Performed By: Yolanda Acosta [place] Chest CTA 09/13/22 09:08 IMPRESSION: 1. Nonocclusive emboli are present in multiple peripheral branches of the right pulmonary artery supplying the right upper and middle lobes. No left pulmonary artery emboli present. 2. Multiple tree-in-bud nodular opacities with superimposed interstitial thickening and groundglass edema are scattered throughout the bilateral upper lobes, right greater than left suggesting a developing endobronchial infectious or inflammatory process. 3. Small nodular areas of fibrosis are seen in the right lower lobe. A cluster of irregular shaped nodules are seen in the posterior basilar segment of the right lower lobe and associated with mild pleural thickening. A similar but less pronounced appearance is also present in the left lung base. 4. A small cluster of slightly dense nodules are seen in the lateral subpleural region of the left lower lobe see image #71/24 series 2. 5. The lungs are hyperinflated with diffuse cystic emphysematous changes. 6. The patient should be a rolled in the CT lung cancer screening program and in initial PET/CT evaluation is recommended to ensure none of the nodular densities represent occult malignancy. This is particularly of concern given the bulky mediastinal and hilar lymphadenopathy present on the current study. N.B. : The above Results were Read Back by Zackary Galicia MD to Farhat Jade DO, and understanding confirmed on 09/13/2022 10:51:58 (ET). Electronically Signed: Zackary Galicia MD at 10:55 EDT , Physical Exam Const alert, oriented x3 and no apparent distress Constitutional Narrative: frail General Appearance: cooperative HEENT normocephalic, head/scalp atraumatic, hearing grossly normal bilaterally and moist oral mucous membranes Eyes PERRL and EOMs intact bilaterally Neck no lymphadenopathy and supple Lymph Lymphatic: no lymphadenopathy noted Resp Resp Narrative: mildly diminished breath sounds bibasally, no wheezes or crackles. On 2L of oxygen by nasal canula Cardio regular rate, regular rhythm, S1 normal heart sound, S2 normal heart sound and no murmurs GI normal to inspection, nondistended, normoactive bowel sounds, soft to palpation and non-tender Extremity Extremity Narrative: LLE swollen, mild fluctuance in the groin, no calf tenderness. 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 CT of the chest showed evidence of PE. * remains on heparin drip * Breathing treatments bronchodilators. Titrate oxygen to maintain saturation above 90%. * Duplex of the left lower extremity was negative for any evidence of PE but showed a 1.8 x 3.58 x 3.7 and 2.1 x 2.35 x 3.07 cm nonvascular structure in the left groin. This likely the lymph nodes that were biopsied. * switch to eliquis today * #. History of rectal cancer: [facility] He states he has not yet seen an oncologist though he has a port in. Currently stable. Follow- up with oncology on outpatient basis #Schizophrenia: On paliperidone and benztropine #Resting tremor: has resting tremor of both extremities. At his baseline #History of urinary retention: Has Mccloud catheter in place. DVT prophylaxis: On heparin drip. Switch to eliquis today CODE STATUS: Full code Total time spent on evaluation and management of patient, reviewing chart and specialist notes, discussing plan with patient, discussion with nursing and ancillary staff as well as documentation: 45 mins Charges/Coding Visit Charges Inpatient E&M: 03070 Subs Hosp L2
--- NOTE | 2022-09-14 11:30 | CASEMGMT ---
RITCHIE BAIG Face to Face with patient for initial transition planning/care coordination assessment. RN SAFIA introduced self and role at [facility]. Patient lying in bed, alert and oriented. Patient willing to participate in assessment and is able to answer all questions appropriately. Care providers, pharmacy, and demographics verified. Patient wishes to discharge home, denies need for home health at this time. Patient states he has no further needs or concerns at this time. CM to follow for discharge planning needs that may arise. PCP: Dr Benitez at [facility] Specialists: Dr Dubon, [facility] [place] Preferred Pharmacy: [facility] [place] Living Will/HPOA: none LNOK: and son Living Arrangements: Patient lives with and son in a 2 story home with bed and bath on first floor, 3 steps and railing to enter the home. Patient states he is independent at home. Patient's is currently at [facility] Transportation: self, step daughter DME/HHC: Patient has shower chair, raised toilet, grab bars, walker at home. Patient has been to [facility] previously. No previous HHC. Disposition Plan: Patient to discharge home with family support and follow-up plans in place. Will monitor progress with therapy. Yolanda GORDON, RN, CM
--- NOTE | 2022-09-14 15:49 | CHAPLAIN ---
Type of Pastoral Visit _x__ Initial Visit ___ Follow-up Visit ___ On-call Visit ___ General Patient Visit ___ Spiritual Assessment ___ Family Conference ___ Bereavement ___ Rapid Response ___ Code Blue ___ Other (describe below) Pastoral Care Referral From _x__ Patient ___ Family ___ Nurse ___ Physician ___ Pipeline Executive ___ Structural Steel Erector ___ Other (describe below) Sacrament/Intervention _x__ Active listening ___ Anointing ___ Hindu ___ Bereavement ___ Communion ___ Taylor exploration ___ ___ Life review _x__ Prayer ___ Reconciliation ___ Sacrament of Sick _x__ Supportive presence ___ Wedding ___ Other (describe below) Pastoral Comments patient was seen in a previous admission recently and 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
[2022-09-14 16:03] LABS: Partial Thromboplast Time 57.1 Seconds (24.1-36.2)
[2022-09-14] MEDS: APIXABAN 5 MG TABLET 10 MG PO (17:39)
[2022-09-14] MEDS: Tamsulosin HCl 0.4 MG Capsule 0.8 MG PO (22:15)
[2022-09-15 02:00] VITALS: BP 110/70; PULSE 78; RESP 18; TEMP 36.1; O2SAT 95
[2022-09-15 06:03] LABS: Absolute Lymphocyte Count 1.27 X10^3/uL (0.83-4.51); Absolute Neutrophil Count 6.2 X10^3/uL (2.0-7.7); Basophil# 0.04 X10^3/uL; Basophil% 0.4 % (0-1); Eosinophil# 0.33 X10^3/uL; Eosinophils% 3.7 % (0-5); Hemoglobin 11.2 g/dL (13.0-16.5); Lymphocyte # 1.27 X10^3/ul (0.83-4.51); Lymphocyte % 14.1 % (19-41); Mean Corp Hgb Conc 32.9 g/dL (32-36); Mean Corpuscular Hgb 27.2 pg (27.0-32.0); Mean Corpuscular Volume 82.5 fL (80-94); Mean Platelet Vol. 9.3 fl (6.2-12.0); Monocyte# 1.13 X10^3/uL; Monocyte% 12.6 % (0-10); NRBC Flagged by Analyzer 0 % (0-5); Neutrophil # 6.17 X10^3/uL (2.7-7.7); Neutrophil % 68.8 % (47-70); Platelet Count 278 K/mm3 (150-450); RBC Distribution Width CV 13.4 % (11.6-14.6); RBC Distribution Width SD 40.7 fl (35.1-43.9); Red Blood Count 4.12 M/mm3 (4.6-6.2)
[2022-09-15 07:05] LABS: Anion Gap 8 (5-15); BUN 8 mg/dL (7-18); BUN/Creat Ratio 12.2 RATIO (10-20); Calcium,Total 8.9 mg/dL (8.5-10.1); Chloride 104 mmol/L (98-107); Creatinine, Serum 0.66 mg/dL (0.70-1.30); EST Glomerular Filtration Rate 127 mL/min (>60); Est Glom Filt Rate - Afr Amer 153 mL/min (>60); Estimated Creatinine Clearance 66.96 ml/min; Glucose 111 mg/dL (74-106); Potassium 3.8 mmol/L (3.5-5.1); Sodium Level 135 mmol/L (136-145)
[2022-09-15 08:10] VITALS: BP 109/75; PULSE 98; RESP 16; TEMP 36.9; O2SAT 92
[2022-09-15] MEDS: APIXABAN 5 MG TABLET 10 MG PO (08:11)
[2022-09-15] MEDS: busPIRone 5 MG Tablet PO (08:12)
[2022-09-15] MEDS: oxyCODONE 5 MG Tablet PO (08:12)
[2022-09-15] MEDS: Finasteride 5 MG Tablet PO (08:12)
[2022-09-15] MEDS: Acetaminophen 325 MG Tablet 650 MG PO (08:12)
[2022-09-15 08:15] VITALS: O2SAT 95
[2022-09-15] MEDS: Benztropine 2 MG Tablet 1 MG PO (08:16)
--- NOTE | 2022-09-15 11:15 | PCM.DC ---
Discharge Instructions Diet Discharge Diet: Low fat / Low cholesterol Activity Discharge Activity: Return to Normal Activity Dressing / Incision Call your doctor if you observe: Fever of 101 or Higher, Shortness of breath, Dizziness, Swelling in the ankles, Chest pain and Increased palpitations (irregular heartbeat) Follow Up Care Test Results: Test results from this visit will be discussed in further detail at your follow-up appointment, if applicable. Discharge Plan Admission Admit Date/Time: 09/13/22 11:14 Primary Reason for Your Visit: hypoxia due to PE Attending Provider: Reanna Garcia Primary Care Provider: [facility],[place] Instructions Patient Instructions: Embolism Pulmonary Dc Discharge Orders/Prescriptions Prescriptions: New oxycodone 5 mg Tablet 5 mg PO Q4H PRN PRN (Reason: Pain Score 4-10) 3 Days Qty: 18 0RF Eliquis DVT-PE Treat 30D Start 5 mg (74 tabs) tablets,dose pack 5 mg PO BID Qty: 74 0RF Rx Instructions: take 2 tabs (10mg) twice daily for 7 days (till 09/21/2022), then continue with one tablet (5mg) twice daily Continued buspirone 5 mg tablet 5 mg PO BID benztropine 2 MG tablet 1 mg PO BID tamsulosin 0.4 mg Capsule 0.8 mg PO QHS finasteride 5 mg Tablet 5 mg PO DAILY Glucosamine-Chondroitin DS 500-400 mg Capsule 2 cap PO DAILY Rx Instructions: give with meal/snack paliperidone palmitate 234 mg/1.5 mL Syringe 234 mg IM QMONTH multivitamin Tablet 1 tab PO DAILY Referrals / Follow Up: [facility],[place] [Primary Care Provider] - Within 2 Weeks Disposition Disposition (needs filled in before D/C Order can be placed): Home, Self Care
--- NOTE | 2022-09-15 11:16 | PCM.DC.SUM ---
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 CT of the chest showed evidence of PE. remains on heparin drip Breathing treatments bronchodilators. Titrate oxygen to maintain saturation above 90%. Duplex of the left lower extremity was negative for any evidence of PE but showed a 1.8 x 3.58 x 3.7 and 2.1 x 2.35 x 3.07 cm nonvascular structure in the left groin. This likely the lymph nodes that were biopsied. switch to [employer] software #. History of rectal cancer: States he follows up at the [facility]. He states he has not yet seen an oncologist though he has a port in. Currently stable. Follow-up with oncology on outpatient basis #Schizophrenia: On paliperidone and benztropine #Resting tremor: has resting tremor of both extremities. At his baseline #History of urinary retention: Has Mccloud catheter in place. DVT prophylaxis: On heparin drip. Switch to [employer] today CODE STATUS: Full code Total time spent on evaluation and management of patient, reviewing chart and specialist notes, discussing plan with patient, discussion with nursing and ancillary staff as well as documentation: 45 mins Medications at Discharge Home Medications benztropine 2 mg tablet 1 mg PO BID 07/15/20 finasteride 5 mg tablet 5 mg PO DAILY 12/08/21 tamsulosin 0.4 mg capsule 0.8 mg PO QHS 12/08/21 buspirone 5 mg tablet 5 mg PO BID 07/02/22 glucosamine sulfate dipotassium Cl 500 mg-chondroitin 400 mg capsule (Glucosamine-Chondroitin DS) 2 cap PO DAILY 08/10/22 paliperidone palmitate 234 mg/1.5 mL intramuscular syringe 234 mg IM QMONTH 08/10/22 multivitamin 1 tab PO DAILY SUPPLEMENT 09/13/22 apixaban 5 mg (74 tabs) tablets in a dose pack (Eliquis DVT-PE Treat 30D Start) 5 mg PO BID #74 tabs 09/15/22 oxycodone 5 mg tablet 5 mg PO Q4H PRN PRN Pain Score 4-10 3 days #18 tabs 09/15/22 Hospital Course Operations None Procedures None Summary of Care Provided Minutes Spent on Discharge: 50 Hospital Course: DMITRI JACOBS, is a 72 M with a PMH as outlined who presents via the ED on 09/13/2022 with a complaint of left groin pain, redness and swelling. He has a PMH of metastatic rectal cancer. He also complained of feeling tired and fatigued.? He denied feeling short of breath and denied any cough, chest pain, palpitations, dizziness, nausea or vomiting.? He said he recently had a biopsy of lymph nodes done in his left groin and subsequently noted that his entire left leg was swelling that is why he came into the ED. Review of systems was otherwise negative. 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 CBC showed Hb of 11.7, wbc of 8.8 and platelets of 284. Chemistry was unremarkable. CTA showed nonocclusive emboli in multiple peripheral branches of the right pulmonary artery supplying the right upper and middle lobes. Duplex of the left lower extremity showed no evidence of DVT and showed a left groin 1.8 x 3.58 x 3.7 cm and 2.1 x 2.35 x 3.07 cm nonvascular structures. He was started on heparin drip and was admitted to be managed for PE. Patient was gradually weaned off of oxygen and felt better. He was able to ambulate with physical therapy. Patient did well and was discharged home on 09/15/2022 after he was deemed as being able to go home by physical therapy. He is follow-up with his primary care doctor and was [facility] of his [facility] cancer. Patient was seen and examined prior to discharge. He had no active complaints and had an uneventful night. Review of systems otherwise negative. Labs and vitals reviewed. Home medication reviewed and reconciled. Physical Exam Const alert, oriented x3 and no apparent distress Constitutional Narrative: frail General Appearance: cooperative and comfortable HEENT normocephalic, head/scalp atraumatic, hearing grossly normal bilaterally and moist oral mucous membranes Mouth: oral and palatal mucosa normal Eyes PERRL and EOMs intact bilaterally Neck no lymphadenopathy and supple Lymph Lymphatic: no lymphadenopathy noted Resp Resp Narrative: mildly diminished breath sounds bibasally, no wheezes or crackles. On room air Cardio regular rate, regular rhythm, S1 normal heart sound, S2 normal heart sound and no murmurs GI normal to inspection, nondistended, normoactive bowel sounds, soft to palpation and non-tender Extremity Extremity Narrative: LLE swollen, mild fluctuance in the groin, no calf tenderness. Skin Skin Narrative: erythema over sacral region, no ulceration seen Neuro oriented x3, CN's II-XII intact bilaterally, moves all extremities and no focal motor deficits Neuro Narrative: resting tremors of UEs, which is chronic Sensorium / Orientation: awake Motor Exam: strength 5/5 throughout Psych affect normal Appearance: appropriate Medical Records Data Medical Nutrition Assessment Dietitian: Malnutrition Criteria Met Start: 09/13/22 14:28 Freq: Status: Active Protocol: Document 09/13/22 14:28 [facility] (Rec: 09/13/22 14:28 [facility] [id number]) Nutrition Malnutrition Evidence of Malnutrition Exists Yes Malnutrition (severe): Acute Illness/Injury Evidenced By Suboptimal Energy Intake ( Severe),Weight Loss (Severe) Clinical Problem Acute Disease or Injury Related Malnutrition Etiology related to decrease in appetite and inadequate energy intake d/t issues w/ constipation Signs/Symptoms as evidenced by <50% po intake and 5.3% unintended wt loss in <1 week. Status Active Problem Recommendation Dietitian Recommendations/Changes As medically able, rec PETER to liberal Regular w/ 8 oz chocolate ensure plus high protein 3x/day w/ meals d/t signs and symptoms of malnutrition Weight / BMI Weight Weight: 156 lb 4.924 oz Body Mass Index (BMI) 21.8 ABG / Lab / Microbiology Data Result Diagrams: 09/15/22 05:29 09/15/22 05:29 Laboratory: Laboratory Results - last 24 hr 09/14/22 15:40: APTT 57.1 H 09/15/22 05:29: WBC 9.0, RBC 4.12 L, Hgb 11.2 L, Hct 34.0 L, MCV 82.5, MCH 27.2, MCHC 32.9, RDW Std Deviation 40.7, RDW Coeff of Edi 13.4, Plt Count 278, MPV 9.3, Immature Gran % (Auto) 0.400, Neut % (Auto) 68.8, Lymph % (Auto) 14.1 L, [place] % (Auto) 12.6 H, Eos % (Auto) 3.7, Baso % (Auto) 0.4, Absolute Neuts (auto) 6.2, Absolute Lymphs (auto) 1.27, Nucleated RBC % 0 09/15/22 05:29: Sodium 135 L, Potassium 3.8, Chloride 104, Carbon Dioxide 23.0, Anion Gap 8, BUN 8, Creatinine 0.66 L, Estim Creat Clear Calc 66.96, Est GFR (MDRD) Af Amer 153, Est GFR (MDRD) Non-Af 127, BUN/Creatinine Ratio 12.2, Glucose 111 H, Calcium 8.9 Microbiology: Microbiology 09/13/22 09:40 Nasal Secretion SARS-CoV-2 & FLU Antigen (Rapid) - Final D/C Instructions Discharge Diet: Low fat / Low cholesterol Discharge Activity: Return to Normal Activity Call your doctor if you observe: Fever of 101 or Higher, Shortness of breath, Dizziness, Swelling in the ankles, Chest pain and Increased palpitations (irregular heartbeat) Meaningful Use Info Meaningful Use Diagnoses (Choose all that apply): VTE VTE Anticoag overlap given w/in hospital stay or rx'd at dc?: Yes Pt receive overlap for 5 days?: No Reason overlap not ordered, prescribed, or given for 5 days: Treatment Not Indicated Discharge Plan Admission Admit Date/Time: 09/13/22 11:14 Primary Reason for Your Visit: hypoxia due to PE Attending Provider: Reanna Garcia Primary Care Provider: [facility] Instructions Patient Instructions: Embolism Pulmonary Dc Discharge Orders/Prescriptions Prescriptions: New oxycodone 5 mg Tablet 5 mg PO Q4H PRN PRN (Reason: Pain Score 4-10) 3 Days Qty: 18 0RF Eliquis DVT-PE Treat 30D Start 5 mg (74 tabs) tablets,dose pack 5 mg PO BID Qty: 74 0RF Rx Instructions: take 2 tabs (10mg) twice daily for 7 days (till 09/21/2022), then continue with one tablet (5mg) twice daily Continued buspirone 5 mg tablet 5 mg PO BID benztropine 2 MG tablet 1 mg PO BID tamsulosin 0.4 mg Capsule 0.8 mg PO QHS finasteride 5 mg Tablet 5 mg PO DAILY Glucosamine-Chondroitin DS 500-400 mg Capsule 2 cap PO DAILY Rx Instructions: give with meal/snack paliperidone palmitate 234 mg/1.5 mL Syringe 234 mg IM QMONTH multivitamin Tablet 1 tab PO DAILY Referrals / [facility] [[facility] Provider[facility] - Within 2 Weeks Disposition Disposition (needs filled in before D/C Order can be placed): Home, Self Care Charges/Coding Visit Charges Inpatient E&M: 02339 Disch Hosp >30min
--- NOTE | 2022-09-15 12:00 | CASEMGMT ---
RN CM notified that patient will be discharging today. Patient is discharging on Eliquis. RN S[facility]. Savings card applied and no cost for Eliquis. Patient has script for oxycodone with cost of $8.54. RN CM in to discuss discharge with patient. RN CM updated patient regarding savings card and prescritpion cost, patient states he can afford copay for oxycodone. Patient states he did well with therapy and denies home health at discharge. Patient voiced [facility]. Patient states [facility] had [facility] appt but [employer] company cancelled transport. RN CM advised [facility] to [facility]. RN CM inquired if family could help with transportation. Patient states he doesn't like to bother family as they work. RN CM encourage patient ask family for assistance with transportation. Patient voiced understanding. Patient denied further questions or concerns at this time.
== END 2022-09-15 14:36 | disposition home or self-care (01) | DRG 175 ==
LOC: ED 11:37 → PCU 11:39
PROVIDERS: Admitting Provider Student in an Organized Health Care Education/Training Program; Emergency Provider Emergency Medicine; Visit Provider Student in an Organized Health Care Education/Training Program
DX: I26.99 Other pulmonary embolism without acute cor pulmonale (principal); E43 Unspecified severe protein-calorie malnutrition; C77.9 Secondary and unspecified malignant neoplasm of lymph node, unspecified; C20 Malignant neoplasm of rectum; F20.9 Schizophrenia, unspecified; G25.2 Other specified forms of tremor; R60.0 Localized edema; Z66 Do not resuscitate; Z87.891 Personal history of nicotine dependence; R33.9 Retention of urine, unspecified; Z68.21 Body mass index [BMI] 21.0-21.9, adult
CPT/HCPCS: 36415; 36591; 51702; 71275; 80048; 83735; 83880; 84484; 85025; 85610; 85730; 87428; 93005; 93971; 97116; 97162; 97166; 97802; 99285; 99406; J7030; Q9967; A4216

== ENCOUNTER 2022-09-26 14:24 | Emergency (ER) | payer OTHER, SELFPAY ==
[2022-09-26 14:24] VITALS: BP 119/91; PULSE 109; RESP 18; TEMP 36.1; O2SAT 95
[2022-09-26 15:08] LABS: Mucous, Urine 0 SEEN /hpf (<or=2+)
[2022-09-26 15:12] LABS: Color, Urine Brown (Yellow); Glucose, Dipstick Normal (Normal); Ketone-Dipstick 5 mg/dl (Negative); Leukocyte Esterase-Dipstick 100 /ul (Negative); Nitrite-Dipstick Positive (Negative); Occult Blood-Urine 250 /ul (Negative); Protein-Dipstick 500 mg/dl (Negative); Specific Gravity, Urine 1.025 (1.002-1.030); Urine Bilirubin Dipstick Negative (Negative); Urine Clarity Cloudy (Clear); Urine Urobilinogen Normal (Normal); Urine pH 6.5 (5.0 - 8.0)
[2022-09-26 15:18] LABS: Red Blood Cells-Urine > 100 SEEN /hpf (0-5)
[2022-09-26 15:19] LABS: Absolute Lymphocyte Count 1.14 X10^3/uL (0.83-4.51); Absolute Neutrophil Count 8.4 X10^3/uL (2.0-7.7); Basophil# 0.02 X10^3/uL; Basophil% 0.2 % (0-1); Eosinophil# 0.05 X10^3/uL; Eosinophils% 0.5 % (0-5); Hematocrit 32.4 % (40-54); Hemoglobin 10.4 g/dL (13.0-16.5); Lymphocyte # 1.14 X10^3/ul (0.83-4.51); Lymphocyte % 10.7 % (19-41); Mean Corp Hgb Conc 32.1 g/dL (32-36); Mean Corpuscular Hgb 26.9 pg (27.0-32.0); Mean Corpuscular Volume 83.7 fL (80-94); Mean Platelet Vol. 8.5 fl (6.2-12.0); Monocyte# 1.04 X10^3/uL; Monocyte% 9.7 % (0-10); NRBC Flagged by Analyzer 0 % (0-5); Neutrophil # 8.37 X10^3/uL (2.7-7.7); Neutrophil % 78.4 % (47-70); Platelet Count 426 K/mm3 (150-450); RBC Distribution Width SD 42.1 fl (35.1-43.9); Red Blood Count 3.87 M/mm3 (4.6-6.2); White Blood Count 10.7 K/mm3 (4.4-11.0)
[2022-09-26 15:21] LABS: White Blood Cells 10-25 SEEN /hpf (0-5)
--- NOTE | 2022-09-26 15:22 | EX.ED.DYSGE1 ---
HPI History of Present Illness Chief Complaint: Complaint 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 Arthritis Bipolar disorder Difficulty balancing Fatigue Hemorrhoid Incontinence Pulmonary embolism Rectal cancer Sepsis Weakness Home Medications benztropine 2 mg tablet 1 mg PO BID 07/15/20 [History Last Taken 09/12/22] finasteride 5 mg tablet 5 mg PO DAILY 12/08/21 [History Last Taken 09/12/22] tamsulosin 0.4 mg capsule 0.8 mg PO QHS 12/08/21 [History Last Taken 09/12/22] buspirone 5 mg tablet 5 mg PO BID 07/02/22 [History Last Taken 09/12/22] glucosamine sulfate dipotassium Cl 500 mg-chondroitin 400 mg capsule (Glucosamine-Chondroitin DS) 2 cap PO DAILY 08/10/22 [History Last Taken 09/12/22] paliperidone palmitate 234 mg/1.5 mL intramuscular syringe 234 mg IM QMONTH 08/10/22 [History Last Taken Unknown] multivitamin 1 tab PO DAILY SUPPLEMENT 09/13/22 [History Last Taken 09/12/22] apixaban 5 mg (74 tabs) tablets in a dose pack (Eliquis DVT-PE Treat 30D Start) 5 mg PO BID #74 tabs 09/15/22 [Rx Last Taken Unknown] oxycodone 5 mg tablet 5 mg PO Q4H PRN PRN Pain Score 4-10 3 days #18 tabs 09/15/22 [Rx Last Taken Unknown] Allergy/AdvReac Type Severity Reaction Status Date / Time trifluoperazine Allergy Cramping Verified 09/26/22 14:27 [From Lashawn] Family History Other Cancer Heart disease Surgical History History of tooth extraction Social History Smoking Status: Former smoker Tobacco: How many years used: 50 alcohol intake: never EXAM Physical Exam Const Vital Signs: 09/26/22 14:24 Temperature 97 F L Temperature Source Temporal Pulse Rate 109 H Respiratory Rate 18 Blood Pressure 119/91 H Blood Pressure Mean 100 Pulse Ox 95 Oxygen Delivery Method Room Air MDM MDM Lab Data Labs: Laboratory Results - last 24 hr 09/26/22 09/26/22 15:04 15:10 WBC 10.7 RBC 3.87 L Hgb 10.4 L Hct 32.4 L MCV 83.7 MCH 26.9 L MCHC 32.1 RDW Std Deviation 42.1 RDW Coeff of Edi 14.0 Plt Count 426 MPV 8.5 Immature Gran % (Auto) 0.500 Neut % (Auto) 78.4 H Lymph % (Auto) 10.7 L [place] % (Auto) 9.7 Eos % (Auto) 0.5 Baso % (Auto) 0.2 Absolute Neuts (auto) 8.4 H Absolute Lymphs (auto) 1.14 Nucleated RBC % 0 Urine Color Brown Urine Clarity Cloudy Urine pH 6.5 Ur Specific [place] 1.025 Urine Protein 500 H Urine Glucose (UA) Normal Urine Ketones 5 H Urine Occult Blood 250 H Urine Nitrite Positive H Urine Bilirubin Negative Urine Urobilinogen Normal Ur Leukocyte Esterase 100 H Urine RBC > 100 SEEN Urine WBC 10-25 SEEN Ur Squamous Epith Cells 0-5 SEEN Urine Bacteria 3+ Urine Mucus 0 SEEN Discharge Plan Triage Chief Complaint: Complaint ED Midlevel Provider: Elyse Villalba ED Provider: Farhat Jade Dx/Rx/DC Orders Prescriptions: No Action buspirone 5 mg tablet 5 mg PO BID benztropine 2 MG tablet 1 mg PO BID tamsulosin 0.4 mg Capsule 0.8 mg PO QHS finasteride 5 mg Tablet 5 mg PO DAILY Glucosamine-Chondroitin DS 500-400 mg Capsule 2 cap PO DAILY Rx Instructions: give with meal/snack paliperidone palmitate 234 mg/1.5 mL Syringe 234 mg IM QMONTH multivitamin Tablet 1 tab PO DAILY oxycodone 5 mg Tablet 5 mg PO Q4H PRN PRN (Reason: Pain Score 4-10) 3 Days Qty: 18 0RF Eliquis DVT-PE Treat 30D Start 5 mg (74 tabs) tablets,dose pack 5 mg PO BID Qty: 74 0RF Rx Instructions: take 2 tabs (10mg) twice daily for 7 days (till 09/21/2022), then continue with one tablet (5mg) twice daily [facility] [Primary Care Provider] -
[2022-09-26 15:24] LABS: Bacteria 3+ /hpf (None Seen); Squamous Epithelial Cells - UA 0-5 SEEN /hpf (0-5)
[2022-09-26 15:35] LABS: Anion Gap 7 (5-15); BUN 15 mg/dL (7-18); BUN/Creat Ratio 20.7 RATIO (10-20); Calcium,Total 8.5 mg/dL (8.5-10.1); Chloride 101 mmol/L (98-107); Creatinine, Serum 0.72 mg/dL (0.70-1.30); EST Glomerular Filtration Rate 113 mL/min (>60); Est Glom Filt Rate - Afr Amer 137 mL/min (>60); Glucose 122 mg/dL (74-106); Potassium 4.2 mmol/L (3.5-5.1); Sodium Level 133 mmol/L (136-145)
[2022-09-26] MEDS: Cephalexin 250 MG Capsule 500 MG PO (15:55)
--- NOTE | 2022-09-26 16:04 | EDS_ITS ---
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 Arthritis Bipolar disorder Difficulty balancing Fatigue Hemorrhoid Incontinence Pulmonary embolism Rectal cancer Sepsis Weakness Home Medications benztropine 2 mg tablet 1 mg PO BID 07/15/20 [History Last Taken 09/12/22] finasteride 5 mg tablet 5 mg PO DAILY 12/08/21 [History Last Taken 09/12/22] tamsulosin 0.4 mg capsule 0.8 mg PO QHS 12/08/21 [History Last Taken 09/12/22] buspirone 5 mg tablet 5 mg PO BID 07/02/22 [History Last Taken 09/12/22] glucosamine sulfate dipotassium Cl 500 mg-chondroitin 400 mg capsule (Glu cosamine-Chondroitin DS) 2 cap PO DAILY 08/10/22 [History Last Taken 09/12/22] paliperidone palmitate 234 mg/1.5 mL intramuscular syringe 234 mg IM QMONTH 08/10/22 [History Last Taken Unknown] multivitamin 1 tab PO DAILY SUPPLEMENT 09/13/22 [History Last Taken 09/12/22] apixaban 5 mg (74 tabs) tablets in a dose pack (Eliquis DVT-PE Treat 30D Start) 5 mg PO BID #74 tabs 09/15/22 [Rx Last Taken Unknown] oxycodone 5 mg tablet 5 mg PO Q4H PRN PRN Pain Score 4-10 3 days #18 tabs 09/15/22 [Rx Last Taken Unknown] cephalexin 500 mg capsule 500 mg PO Q6 #39 CAPSULES 09/26/22 [Rx Last Taken Unknown] Allergy/AdvReac Type Severity Reaction Status Date / Time trifluoperazine Allergy Cramping Verified 09/26/22 14:27 [From Stelazine] Family History Other Cancer Heart disease Surgical History History of tooth extraction Social History Smoking Status: Former smoker Tobacco: How many years used: 50 alcohol intake: never EXAM Physical Exam Const Vital Signs: 09/26/22 14:24 Temperature 97 F L Temperature Source Temporal Pulse Rate 109 H Respiratory Rate 18 Blood Pressure 119/91 H Blood Pressure Mean 100 Pulse Ox 95 Oxygen Delivery Method Room Air [facility] Lab Data Labs: Laboratory Results - last 24 hr 09/26/22 09/26/22 09/26/22 15:04 15:10 15:10 WBC 10.7 RBC 3.87 L Hgb 10.4 L Hct 32.4 L MCV 83.7 MCH 26.9 L MCHC 32.1 RDW Std Deviation 42.1 RDW Coeff of Edi 14.0 Plt Count 426 MPV 8.5 Immature Gran % (Auto) 0.500 Neut % (Auto) 78.4 H Lymph % (Auto) 10.7 L [place] % (Auto) 9.7 Eos % (Auto) 0.5 Baso % (Auto) 0.2 Absolute Neuts (auto) 8.4 H Absolute Lymphs (auto) 1.14 Nucleated RBC % 0 Sodium 133 L Potassium 4.2 Chloride 101 Carbon Dioxide 25.0 Anion Gap 7 BUN 15 Creatinine 0.72 Est GFR (MDRD) Af Amer 137 Est GFR (MDRD) Non-Af 113 BUN/Creatinine Ratio 20.7 H Glucose 122 H Calcium 8.5 Urine Color Brown Urine Clarity Cloudy Urine pH 6.5 Ur Specific [place] 1.025 Urine Protein 500 H Urine Glucose (UA) Normal Urine Ketones 5 H Urine Occult Blood 250 H Urine Nitrite Positive H Urine Bilirubin Negative Urine Urobilinogen Normal Ur Leukocyte Esterase 100 H Urine RBC > 100 SEEN Urine WBC 10-25 SEEN Ur Squamous Epith Cells 0-5 SEEN Urine Bacteria 3+ Urine Mucus 0 SEEN Discharge Plan Triage Chief Complaint: Complaint ED Midlevel Provider: Elyse Villalba ED Provider: Farhat Jade Dx/Rx/DC Orders Clinical Impression: Acute UTI Instructions: ED Bladder Infection, Male (Adult) Prescriptions: New cephalexin 500 mg capsule 500 mg PO Q6 Qty: 39 0RF No Action buspirone 5 mg tablet 5 mg PO BID benztropine 2 MG tablet 1 mg PO BID tamsulosin 0.4 mg Capsule 0.8 mg PO QHS finasteride 5 mg Tablet 5 mg PO DAILY Glucosamine-Chondroitin DS 500-400 mg Capsule 2 cap PO DAILY Rx Instructions: give with meal/snack paliperidone palmitate 234 mg/1.5 mL Syringe 234 mg IM QMONTH multivitamin Tablet 1 tab PO DAILY oxycodone 5 mg Tablet 5 mg PO Q4H PRN PRN (Reason: Pain Score 4-10) 3 Days Qty: 18 0RF Eliquis DVT-PE Treat 30D Start 5 mg (74 tabs) tablets,dose pack 5 mg PO BID Qty: 74 0RF Rx Instructions: take 2 tabs (10mg) twice daily for 7 days (till 09/21/2022), then continue with one tablet (5mg) twice daily [facility] [Primary [facility] Provider] - Activity Restrictions/Additional Instructions: Follow-up with your PCP in 3 to 5 days, take antibiotics as prescribed. Return for any worsening of symptoms. Disposition Disposition: Home, Self Care
--- NOTE | 2022-09-26 16:25 | EX.ED.DYSGE1 ---
HPI <RICHARD Amaral - Last Filed: 09/26/22 17:13> History of Present Illness Chief Complaint: Complaint Narrative Narrative: Patient presenting today with his sons with concerns that he has a UTI. Patient does have a Mccloud catheter in place and has noticed that his urine has been a dark brown color as of today. Patient currently has a history of rectal cancer that was recently diagnosed, he has not yet received treatment for this but has an appointment with oncology this week to discuss treatment options. He denies any fever, chills, abdominal pain, nausea, and vomiting. 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 Arthritis Bipolar disorder Difficulty balancing Fatigue Hemorrhoid Incontinence Pulmonary embolism Rectal cancer Sepsis Weakness Home Medications benztropine 2 mg tablet 1 mg PO BID 07/15/20 [History Last Taken 09/12/22] finasteride 5 mg tablet 5 mg PO DAILY 12/08/21 [History Last Taken 09/12/22] tamsulosin 0.4 mg capsule 0.8 mg PO QHS 12/08/21 [History Last Taken 09/12/22] buspirone 5 mg tablet 5 mg PO BID 07/02/22 [History Last Taken 09/12/22] glucosamine sulfate dipotassium Cl 500 mg-chondroitin 400 mg capsule (Glucosamine-Chondroitin DS) 2 cap PO DAILY 08/10/22 [History Last Taken 09/12/22] paliperidone palmitate 234 mg/1.5 mL intramuscular syringe 234 mg IM QMONTH 08/10/22 [History Last Taken Unknown] multivitamin 1 tab PO DAILY SUPPLEMENT 09/13/22 [History Last Taken 09/12/22] apixaban 5 mg (74 tabs) tablets in a dose pack (Eliquis DVT-PE Treat 30D Start) 5 mg PO BID #74 tabs 09/15/22 [Rx Last Taken Unknown] oxycodone 5 mg tablet 5 mg PO Q4H PRN PRN Pain Score 4-10 3 days #18 tabs 09/15/22 [Rx Last Taken Unknown] cephalexin 500 mg capsule 500 mg PO Q6 #39 CAPSULES 09/26/22 [Rx Last Taken Unknown] Allergy/AdvReac Type Severity Reaction Status Date / Time trifluoperazine Allergy Cramping Verified 09/26/22 14:27 [From Stelazine] Family History Other Cancer Heart disease Surgical History History of tooth extraction Social History Smoking Status: Former smoker Tobacco: How many years used: 50 alcohol intake: never ROS <RICHARD Amaral - Last Filed: 09/26/22 17:13> ROS ED Constitutional Constitutional ED: Denies chills or fever(s) Cardiovascular Cardiovascular: Denies chest pain or palpitations Respiratory/Chest Respiratory/Chest: Denies cough or dyspnea Gastrointestinal Gastrointestinal: Denies abdominal pain, nausea or vomiting Genitourinary Genitourinary ED: Denies dysuria, hematuria or urinary urgency Musculoskeletal Musculoskeletal: Denies arthralgias, back pain or myalgias Integumentary Denies abscess, Abrasions or rash Neurologic Neurologic: Denies weakness EXAM <RICHARD Amaral - Last Filed: 09/26/22 17:13> Physical Exam Const Vital Signs: 09/26/22 14:24 Temperature 97 F L Temperature Source Temporal Pulse Rate 109 H Respiratory Rate 18 Blood Pressure 119/91 H Blood Pressure Mean 100 Pulse Ox 95 Oxygen Delivery Method Room Air Positive well nourished, well developed and no apparent distress General Appearance ED: well developed HEENT Reports normocephalic and head/scalp atraumatic Mouth ED: Yes moist mucous membranes normal Eyes PERRL and EOMs intact bilaterally Neck full ROM and supple Chest Wall inspection of chest normal Resp normal respiratory effort and clear to auscultation bilaterally Cardio regular rate and regular rhythm GI soft to palpation, non-tender, non-distended and no masses Narrative: There is a hard mass in left groin, some mild overlying erythema that extends to the L thigh. stage I pressure ulcer to patient's buttocks bilaterally. Back/Spine normal ROM and normal to inspection Extremity normal to inspection and full ROM Neuro oriented x3, CN's II-XII intact bilaterally, moves all extremities, no focal motor deficits and no sensory deficits noted Sensorium / Orientation: awake and alert Psych mental status grossly normal and thought process normal Skin no rashes or lesions noted and no wounds <Dr. Farhat Jade DO - Last Filed: 09/26/22 19:19> Physical Exam Const Vital Signs: 09/26/22 14:24 Temperature 97 F L Temperature Source Temporal Pulse Rate 109 H Respiratory Rate 18 Blood Pressure 119/91 H Blood Pressure Mean 100 Pulse Ox 95 Oxygen Delivery Method Room Air MDM <RICHARD Amaral - Last Filed: 09/26/22 17:13> [facility] Narrative Medical decision making narrative: Patient presenting today with concerns that he has a UTI. He has no other complaints at this time on physical examination he does have left inguinal lymphadenopathy with some overlying erythema that extends to the left thigh that is consistent with his previous visit. He was last here 09/13/2022 and did have a duplex ultrasound of the left lower extremity due to erythema in the extremity to rule out DVT and was negative. UA was obtained to rule out UTI and is positive. He will be started on Keflex with first dose here. Labs were obtained to rule out any leukocytosis, edema, electrolyte abnormality. He does have a slight anemia here which is consistent with his previous visit. Slight hyponatremia. Does have a stage I pressure ulcer to his buttocks bilaterally, his son states that they have ointment that he is supposed to be applying daily to his bottom and I have encouraged him to continue to do that as well as have him change positions often to relieve pressure from his bottom. He has a follow-up this week with his oncologist. He will be discharged home in stable condition is comfortable with plan. He is to follow-up with his PCP and return for any worsening of symptoms. Lab Data Attestation: I reviewed the patient's lab results. Lab results narrative: H&H 10.4 and 32.4, sodium 133, UTI Labs: Laboratory Results - last 24 hr 09/26/22 09/26/22 09/26/22 15:04 15:10 15:10 WBC 10.7 RBC 3.87 L Hgb 10.4 L Hct 32.4 L MCV 83.7 MCH 26.9 L MCHC 32.1 RDW Std Deviation 42.1 RDW Coeff of Edi 14.0 Plt Count 426 MPV 8.5 Immature Gran % (Auto) 0.500 Neut % (Auto) 78.4 H Lymph % (Auto) 10.7 L [place] % (Auto) 9.7 Eos % (Auto) 0.5 Baso % (Auto) 0.2 Absolute Neuts (auto) 8.4 H Absolute Lymphs (auto) 1.14 Nucleated RBC % 0 Sodium 133 L Potassium 4.2 Chloride 101 Carbon Dioxide 25.0 Anion Gap 7 BUN 15 Creatinine 0.72 Est GFR (MDRD) Af Amer 137 Est GFR (MDRD) Non-Af 113 BUN/Creatinine Ratio 20.7 H Glucose 122 H Calcium 8.5 Urine Color Brown Urine Clarity Cloudy Urine pH 6.5 Ur Specific [place] 1.025 Urine Protein 500 H Urine Glucose (UA) Normal Urine Ketones 5 H Urine Occult Blood 250 H Urine Nitrite Positive H Urine Bilirubin Negative Urine Urobilinogen Normal Ur Leukocyte Esterase 100 H Urine RBC > 100 SEEN Urine WBC 10-25 SEEN Ur Squamous Epith Cells 0-5 SEEN Urine Bacteria 3+ Urine Mucus 0 SEEN <Dr. Farhat Jade, DO - Last Filed: 09/26/22 19:19> MDM Lab Data Labs: Laboratory Results - last 24 hr 09/26/22 09/26/22 09/26/22 15:04 15:10 15:10 WBC 10.7 RBC 3.87 L Hgb 10.4 L Hct 32.4 L MCV 83.7 MCH 26.9 L MCHC 32.1 RDW Std Deviation 42.1 RDW Coeff of Edi 14.0 Plt Count 426 MPV 8.5 Immature Gran % (Auto) 0.500 Neut % (Auto) 78.4 H Lymph % (Auto) 10.7 L [place] % (Auto) 9.7 Eos % (Auto) 0.5 Baso % (Auto) 0.2 Absolute Neuts (auto) 8.4 H Absolute Lymphs (auto) 1.14 Nucleated RBC % 0 Sodium 133 L Potassium 4.2 Chloride 101 Carbon Dioxide 25.0 Anion Gap 7 BUN 15 Creatinine 0.72 Est GFR (MDRD) Af Amer 137 Est GFR (MDRD) Non-Af 113 BUN/Creatinine Ratio 20.7 H Glucose 122 H Calcium 8.5 Urine Color Brown Urine Clarity Cloudy Urine pH 6.5 Ur Specific [place] 1.025 Urine Protein 500 H Urine Glucose (UA) Normal Urine Ketones 5 H Urine Occult Blood 250 H Urine Nitrite Positive H Urine Bilirubin Negative Urine Urobilinogen Normal Ur Leukocyte Esterase 100 H Urine RBC > 100 SEEN Urine WBC 10-25 SEEN Ur Squamous Epith Cells 0-5 SEEN Urine Bacteria 3+ Urine Mucus 0 SEEN Treatment and Re-Evaluation :: ED attending note: I evaluated the patient in conjunction with the VAUGHN. I agree with his/her statements and above findings. I have personally performed a face to face assessment of the patient and have reviewed the VAUGHN Note. I performed a substantive portion of the visit including all aspects of the following. I personally saw the patient performed chart review, physical exam, reviewed labs, imaging (if obtained), and formulated a treatment and management plan. Exam: Nursing triage notes reviewed, Vital signs reviewed Constitutional: please see mdm HENT: MMM Eyes: Pupils equal round and reactive to light, Extraocular muscles intact Neck: No stridor, no JVD, full neck ROM Lungs: Clear to auscultation, No wheezing or rales. No increased work of breathing, no conversational dyspnea, no accessory muscle use, no nasal flaring. No respiratory distress noted Heart: Regular rate and rhythm, No murmurs, No rubs and No gallops, 2+ distal pulses (radial, femoral, posterior tibial) in all extremities Abdomen: Soft, there is no tenderness, rigidity, rebound or guarding, no obvious peritoneal signs, no palpable pulsatile abdominal masses, no auscultated abdominal bruit : No CVAT Extremities: Left lower extremity with baseline edema. There is a hard mass in left groin, some mild overlying erythema. Neuro: No focal neurological deficits, cranial nerves II through XII intact, 5/5 strength in all extremities. Intact sensation to light touch in all extremities, 2+ reflexes bilateral patella dens. Skin: No rash or lesions noted MDM/plan: Chief Complaint: Concern for UTI External records reviewed: Recent mission for PE started on Eliquis Patient's urinalysis was consistent with UTI. He had no white count to suggest systemic inflammation. We will give Keflex to cover cellulitis and UTI. Will send for culture. Factors affecting care: Adenocarcinoma of the rectum with metastases to intra-abdominal lymph node Social determinants of health: Poor health literacy History obtained from others: The patient's son Shared decision making: I will have a discussion with the patient and or visitors regarding risk/benefits of further testing or admission. They will be made aware of of the risk/benefits inherent in this decision they will be given the opportunity to voice understanding. Consults: Discharge Plan Triage Chief Complaint: Complaint ED Midlevel Provider: Elyse Villalba ED Provider: Farhat Jade Dx/Rx/DC Orders Clinical Impression: Acute UTI Instructions: ED Bladder Infection, Male (Adult) Prescriptions: New cephalexin 500 mg capsule 500 mg PO Q6 Qty: 39 0RF No Action buspirone 5 mg tablet 5 mg PO BID benztropine 2 MG tablet 1 mg PO BID tamsulosin 0.4 mg Capsule 0.8 mg PO QHS finasteride 5 mg Tablet 5 mg PO DAILY Glucosamine-Chondroitin DS 500-400 mg Capsule 2 cap PO DAILY Rx Instructions: give with meal/snack paliperidone palmitate 234 mg/1.5 mL Syringe 234 mg IM QMONTH multivitamin Tablet 1 tab PO DAILY oxycodone 5 mg Tablet 5 mg PO Q4H PRN PRN (Reason: Pain Score 4-10) 3 Days Qty: 18 0RF Eliquis DVT-PE Treat 30D Start 5 mg (74 tabs) tablets,dose pack 5 mg PO BID Qty: 74 0RF Rx Instructions: take 2 tabs (10mg) twice daily for 7 days (till 09/21/2022), then continue with one tablet (5mg) twice daily [facility] [Primary Care Provider] - Activity Restrictions/Additional Instructions: Follow-up with your PCP in 3 to 5 days, take antibiotics as prescribed. Return for any worsening of symptoms. Disposition Disposition: Home, Self Care Discharge Date/Time: 09/26/22 16:50
== END 2022-09-26 16:50 | disposition home or self-care (01) ==
PROVIDERS: Physician Assistant; Emergency Provider Emergency Medicine; Visit Provider Emergency Medicine
DX: N39.0 Urinary tract infection, site not specified (principal); C78.5 Secondary malignant neoplasm of large intestine and rectum; C96.9 Malignant neoplasm of lymphoid, hematopoietic and related tissue, unspecified; C20 Malignant neoplasm of rectum; Z87.891 Personal history of nicotine dependence; Z79.01 Long term (current) use of anticoagulants; Z86.711 Personal history of pulmonary embolism
CPT/HCPCS: 80048; 81001; 85025; 87077; 87086; 87088; 87186; 99283; A4216

== ENCOUNTER 2022-10-06 00:46 | Inpatient (IN) | payer OTHER, SELFPAY ==
[2022-10-06] VITALS (12 sets, daily range): BP systolic 106–142; BP diastolic 68–102; PULSE 98–113; RESP 15–24; TEMP 36–37.2; O2SAT 92–98; BMI 24.1; BMI 23.7
--- NOTE | 2022-10-06 01:13 | EKG12_ITS ---
Test Reason : SOB Blood Pressure : / mmHG Vent. Rate : 107 BPM Atrial Rate : 107 BPM P-R Int : 150 ms QRS Dur : 084 ms QT Int : 346 ms P-R-T Axes : 066 046 065 degrees QTc Int : 461 ms Sinus tachycardia Low voltage QRS Borderline ECG Confirmed by WALT BONILLA, MATTIE ([id number]), technical writer and editor KIERAN ALLRED ([id number]) on 10/07/2022 9:05:52 AM Referred By: [facility] Confirmed By:MATTIE GODOY MD
--- NOTE | 2022-10-06 01:21 | ED.VIS.DYS ---
HPI History of Present Illness Chief Complaint: Shortness of Breath Informant: patient Onset/Context/Timing Onset: Days Context: gradual Timing: Continuous Current Severity: Mild Maximum Severity: Mild Associated Symptoms cough; Negative for fever Chest Pain: Positive for None Narrative Narrative: 72-year-old male history of rectal cancer with bony mets. Recent diagnosis of pulmonary emboli currently on Eliquis. Recent hospitalization. States he been short of breath the last 2 days. Denies any fever. He has had a nonproductive cough. Denies any chest pain or hemoptysis. He is a chronic swelling in his left leg which has not changed. 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 Arthritis Bipolar disorder Difficulty balancing Fatigue Hemorrhoid Incontinence Pulmonary embolism Rectal cancer Sepsis Weakness Home Medications benztropine 2 mg tablet 1 mg PO BID 07/15/20 [History Last Taken 09/12/22] finasteride 5 mg tablet 5 mg PO DAILY 12/08/21 [History Last Taken 09/12/22] tamsulosin 0.4 mg capsule 0.8 mg PO QHS 12/08/21 [History Last Taken 09/12/22] buspirone 5 mg tablet 5 mg PO BID 07/02/22 [History Last Taken 09/12/22] glucosamine sulfate dipotassium Cl 500 mg-chondroitin 400 mg capsule (Glucosamine-Chondroitin DS) 2 cap PO DAILY 08/10/22 [History Last Taken 09/12/22] paliperidone palmitate 234 mg/1.5 mL intramuscular syringe 234 mg IM QMONTH 08/10/22 [History Last Taken Unknown] multivitamin 1 tab PO DAILY SUPPLEMENT 09/13/22 [History Last Taken 09/12/22] apixaban 5 mg (74 tabs) tablets in a dose pack (Eliquis DVT-PE Treat 30D Start) 5 mg PO BID #74 tabs 09/15/22 [Rx Last Taken Unknown] oxycodone 5 mg tablet 5 mg PO Q4H PRN PRN Pain Score 4-10 3 days #18 tabs 09/15/22 [Rx Last Taken Unknown] nitrofurantoin monohydrate/macrocrystals 100 mg capsule 100 mg PO Q12 #14 CAPSULES 09/29/22 [Rx Last Taken Unknown] Allergy/AdvReac Type Severity Reaction Status Date / Time trifluoperazine Allergy Cramping Verified 09/26/22 14:27 [From Stelazine] Family History Other Cancer Heart disease Surgical History History of tooth extraction Social History Smoking Status: Former smoker Tobacco: How many years used: 50 alcohol intake: never ROS ROS ED ROS Narrative Shortness of breath. No chest pain. Nonproductive cough. No fever. Review of Systems ROS Unobtainable: Denies due to encephalopathy Constitutional Constitutional ED: Denies chills or fever(s) Eyes Eyes: Denies blurry vision ENT ENT ED: Denies ear pain Cardiovascular Cardiovascular: Denies chest pain or palpitations Respiratory/Chest Respiratory/Chest: Reports cough and dyspnea Gastrointestinal Gastrointestinal: Reports diarrhea; Denies abdominal pain or constipation Genitourinary Genitourinary ED: Denies dysuria or hematuria Musculoskeletal Musculoskeletal: Denies arthralgias Integumentary Denies abscess Neurologic Neurologic: Denies headache(s) Psychiatric Psychiatric: Denies anxiety Endocrine Endocrinology: Denies cold intolerance Hematologic/Lymphatic Hematologic/Lymphatic: Denies easy bleeding Allergic/Immunologic Allergic/Immunologic ED: Denies mouth swelling EXAM Physical Exam Narrative Exam Narrative: 70-year-old male no acute distress. Pulse ox 92% on room air no hypoxia. H EENT exam unremarkable. Neck nontender no JVD. Lungs clear to auscultation bilaterally. Heart tachycardic rate 111. No murmur appreciated. Abdomen soft nontender. Normal bowel sounds no peritoneal signs. He has a left groin area of either edema, mass, infection or hernia. That is unchanged and he has had that for some time. He moves all 4 extremities he has 2+ pitting edema left lower extremity. Its been ultrasound at least twice in the past and they have not seen a DVT. Right leg is unremarkable. Neurologically is awake and alert. Answering questions and following commands. Const Vital Signs: 10/06/22 00:47 10/06/22 01:13 10/06/22 02:13 Temperature 98.0 F Temperature Source Oral Pulse Rate 111 H Respiratory Rate 20 H Respiratory Effort Short of Breath Respiratory Depth Normal Respiratory Pattern Tachypnea Blood Pressure 128/102 H Blood Pressure Mean 110 Pulse Ox 92 98 Oxygen Delivery Method Room Air Nasal Cannula Nasal Cannula Oxygen Flow Rate (L/min) 3 3 10/06/22 05:55 Temperature Temperature Source Pulse Rate 105 H Respiratory Rate 15 Respiratory Effort Respiratory Depth Respiratory Pattern Blood Pressure 116/81 H Blood Pressure Mean 92 Pulse Ox 97 Oxygen Delivery Method Room Air Oxygen Flow Rate (L/min) Positive well nourished and well developed; Negative for obese, cachectic or contractures General Appearance ED: well developed and NAD; Negative for cachectic, contractures or pallor Nutritional Appearance: Negative for cachectic or obese HEENT Reports dry mucous membranes; Denies moist mucous membranes atraumatic; Negative for trauma or tenderness Mouth ED: Yes dry mucous membranes Mouth: dry mucous membranes Eyes PERRL and EOMs intact bilaterally General Eye ED: Negative for pale conjunctiva Neck no lymphadenopathy, supple, no meningeal signs and no JVD General: Negative for tenderness Lymph Lymphatic: Negative for other Chest Wall Chest: Negative for other Resp normal respiratory effort and clear to auscultation bilaterally Effort and Inspection: Negative for pain with movement Auscultation: Negative for rales, rhonchi or wheezes Cardio regular rhythm, S1 normal heart sound, S2 normal heart sound and no murmurs; Negative for regular rate Rate: tachycardic GI non-tender, non-distended and no masses Inspection: Negative for other Auscultation: normoactive bowel sounds Palpation: soft; Negative for tender or guarding Back/Spine no CVA tenderness General Back: Negative for CVA tenderness Extremity Negative for normal to inspection Extremity Narrative: Chronic left lower extremity 2+ pitting edema. General Extremety ED: Yes edema; Negative for tenderness General Extremity: edema Neuro oriented x3 Sensorium / Orientation: alert, oriented to person, oriented to place and oriented to time; Negative for orientation impaired, confused, lethargic or stuporous Speech: speech normal Motor Exam: strength 5/5 throughout Psych mental status grossly normal Attitude: No agitated Mood & Affect: Negative for depressed Thought Process: normal thought process Skin no wounds General Skin Exam: Negative for jaundice or pallor Rashes: no rashes Trauma: Negative for abrasion MDM MDM MDM Narrative Medical decision making narrative: 70-year-old male complaining of shortness of breath for several days. He has known pulmonary emboli in the right lung currently on Eliquis. Denies any lung disease but he had a usp history of smoking that he quit a year ago. He denies any chest pain. He has had a nonproductive cough denies any fever. This may be infectious etiology. It could be from his pulmonary emboli. Could be from pleural effusions. Could be cardiac etiology. Could be from anemia. Screening labs, EKG and chest x-ray will be obtained. He is on Eliquis I do not believe he needs another CTA. Multiple repeat exams patient is currently resting comfortably at 7:50 AM. I turned off his oxygen his pulse ox read between 92 to 94% while he is lying in bed. Patient be started on Zithromax Z-Chaparro first dose given in the ER for possible atypical pneumonia. With stable vital signs, normal white count is not hypoxic will be treated at home. I did add a BNP even though he has no history of cardiac disease and I do not think this is congestive heart failure. He is already on a blood thinner Eliquis I do not think he needs a CTA just had 1 in the last several weeks which diagnosed him with his pulmonary emboli. Patient to be checked out in the morning physician. I will check the BTM P. Current plan is discharged home Zithromax. He is having no wheezing and he says he has not been wheezing. No follow-up with his primary care physician. History & Record Review Discussion w/independent historian: Patient Additional record(s) reviewed:: Prior inpatient record, Prior outpatient record, Prior ED visit and Prior labs Lab Data Attestation: I reviewed the patient's lab results. Lab results narrative: CBC shows a white count of 8. H&H 10.3 and 33.7. Platelets 430. Electrolytes show a gap of 8 normal BUN and creatinine eleven 0.5. Glucose 117. Troponin is normal at 31. Chest x-ray chronic changes possible atypical pneumonia versus CHF. Labs: Laboratory Results - last 24 hr 10/06/22 10/06/22 01:30 01:30 WBC 8.4 RBC 3.98 L Hgb 10.3 L Hct 33.7 L MCV 84.7 MCH 25.9 L MCHC 30.6 L RDW Std Deviation 43.9 RDW Coeff of Edi 14.3 Plt Count 430 MPV 8.3 Immature Gran % (Auto) 0.600 Neut % (Auto) 74.5 H Lymph % (Auto) 13.4 L [place] % (Auto) 9.6 Eos % (Auto) 1.4 Baso % (Auto) 0.5 Absolute Neuts (auto) 6.3 Absolute Lymphs (auto) 1.13 Nucleated RBC % 0 Sodium 136 Potassium 3.9 Chloride 102 Carbon Dioxide 26.0 Anion Gap 8 BUN 11 Creatinine 0.59 L Estim Creat Clear Calc 71.12 Est GFR (MDRD) Af Amer 174 Est GFR (MDRD) Non-Af 143 BUN/Creatinine Ratio 18.6 Glucose 117 H Calcium 8.8 Troponin I High Sens 31 Radiography Chest X-Ray - ED: 1 View, Read by ED Physician, Mediastinum, Bony Structures, Chronic Changes, Right Infiltrate and Left Infiltrate Diagnostic Testing: Clinical Impression(s) from Imaging Studies Chest X-Ray 10/06/22 01:48 IMPRESSION: 1. Port-A-Cath in place. 2. Bilateral pulmonary infiltrates, which may represent CHF with pulmonary edema or an inflammatory or atypical infectious process. 3. Redemonstration of hilar prominence, consistent with recently demonstrated mediastinal and hilar lymphadenopathy. Electronically Signed: Donovan Sarkar MD at 2:24 EDT Reading Location ID and State: [facility] / [place] , Service support , Chest x-ray, portable, single view shows chronic changes. Bilateral infiltrates which may be from atypical pneumonia versus infectious etiology versus CHF. Rhythm Strip Rhythm Strip: Sinus Tach Rate: 107 Ectopy: None EKG Initial EKG: Attestation: I personally reviewed and interpreted this EKG as follows: Interpretation: Sinus Tachycardia Comments: Sinus tachycardia rate of 107 no acute signs of [place] or ischemia. Low voltage. Discharge Plan Triage Chief Complaint: Shortness of Breath ED Provider: Oneil Granados Dx/Rx/DC Orders Clinical Impression: Pneumonia, Acute dyspnea, Hx pulmonary embolism, Personal history of rectal cancer, Chronic anticoagulation Instructions: ED Dyspnea, ED Pneumonia (Adult) Prescriptions: No Action buspirone 5 mg tablet 5 mg PO BID benztropine 2 MG tablet 1 mg PO BID tamsulosin 0.4 mg Capsule 0.8 mg PO QHS finasteride 5 mg Tablet 5 mg PO DAILY Glucosamine-Chondroitin DS 500-400 mg Capsule 2 cap PO DAILY Rx Instructions: give with meal/snack paliperidone palmitate 234 mg/1.5 mL Syringe 234 mg IM QMONTH multivitamin Tablet 1 tab PO DAILY oxycodone 5 mg Tablet 5 mg PO Q4H PRN PRN (Reason: Pain Score 4-10) 3 Days Qty: 18 0RF Eliquis DVT-PE Treat 30D Start 5 mg (74 tabs) tablets,dose pack 5 mg PO BID Qty: 74 0RF Rx Instructions: take 2 tabs (10mg) twice daily for 7 days (till 09/21/2022), then continue with one tablet (5mg) twice daily nitrofurantoin monohyd/m-cryst [nitrofurantoin monohyd/m-cryst] 100 mg capsule 100 mg PO Q12 Qty: 14 0RF [facility] [Primary Care Provider] - 3-5 Days Activity Restrictions/Additional Instructions: The antibiotic Zithromax 1 pill a day starting tomorrow for 4 more days. Follow-up with your doctor to ensure you are improving. Return if you are feeling worse. Disposition Disposition: Home, Self Care
[2022-10-06 01:38] LABS: Absolute Lymphocyte Count 1.13 X10^3/uL (0.83-4.51); Absolute Neutrophil Count 6.3 X10^3/uL (2.0-7.7); Basophil# 0.04 X10^3/uL; Basophil% 0.5 % (0-1); Eosinophil# 0.12 X10^3/uL; Eosinophils% 1.4 % (0-5); Hematocrit 33.7 % (40-54); Hemoglobin 10.3 g/dL (13.0-16.5); Lymphocyte # 1.13 X10^3/ul (0.83-4.51); Lymphocyte % 13.4 % (19-41); Mean Corp Hgb Conc 30.6 g/dL (32-36); Mean Corpuscular Hgb 25.9 pg (27.0-32.0); Mean Corpuscular Volume 84.7 fL (80-94); Mean Platelet Vol. 8.3 fl (6.2-12.0); Monocyte# 0.81 X10^3/uL; Monocyte% 9.6 % (0-10); NRBC Flagged by Analyzer 0 % (0-5); Neutrophil # 6.27 X10^3/uL (2.7-7.7); Neutrophil % 74.5 % (47-70); Platelet Count 430 K/mm3 (150-450); RBC Distribution Width CV 14.3 % (11.6-14.6); RBC Distribution Width SD 43.9 fl (35.1-43.9); Red Blood Count 3.98 M/mm3 (4.6-6.2); White Blood Count 8.4 K/mm3 (4.4-11.0)
--- NOTE | 2022-10-06 01:48 | RAD_ITS ---
EXAM: XR CHEST, 1 VIEW CLINICAL INDICATION: chest pain chest pain TECHNIQUE: Frontal view of the chest. COMPARISON: Chest x-ray 12/08/2021. CTA chest 09/13/2022 and 08/11/2022. FINDINGS: LUNGS AND PLEURAL SPACES: There are interstitial and airspace infiltrates bilaterally, which show to represent CHF with pulmonary edema or inflammatory atypical infectious process. There is increased hilar prominence with lymphadenopathy, which was demonstrated on recent CTA chest. No pneumothorax. No effusion. HEART: Unremarkable. Cardiac silhouette not enlarged. MEDIASTINUM: Central airways and mediastinal contour are unremarkable. BONES/JOINTS: Unremarkable. SOFT TISSUES: Unremarkable. TUBES, LINES AND DEVICES: There is a right internal jugular Port-A-Cath with its tip overlying the superior vena cava. RAD/Chest 1 View (Portable) IMPRESSION: 1. Port-A-Cath in place. 2. Bilateral pulmonary infiltrates, which may represent CHF with pulmonary edema or an inflammatory or atypical infectious process. 3. Redemonstration of hilar prominence, consistent with recently demonstrated mediastinal and hilar lymphadenopathy. Electronically Signed: Donovan Sarkar MD at 2:24 EDT ,
[2022-10-06 01:55] LABS: Anion Gap 8 (5-15); BUN 11 mg/dL (7-18); BUN/Creat Ratio 18.6 RATIO (10-20); Calcium,Total 8.8 mg/dL (8.5-10.1); Chloride 102 mmol/L (98-107); Creatinine, Serum 0.59 mg/dL (0.70-1.30); EST Glomerular Filtration Rate 143 mL/min (>60); Est Glom Filt Rate - Afr Amer 174 mL/min (>60); Estimated Creatinine Clearance 71.12 ml/min; Glucose 117 mg/dL (74-106); Potassium 3.9 mmol/L (3.5-5.1); Sodium Level 136 mmol/L (136-145); Troponin-I HS 31 pg/mL (3.0-78.0)
[2022-10-06] MEDS: HYDROcodone Bitartrate/Apap 5/325 Tablet PO ×2 (02:07→06:24)
[2022-10-06] MEDS: Azithromycin 250 MG Tablet 500 MG PO (08:05)
[2022-10-06 08:20] LABS: BNP,B-Type NATRIURETIC PEPTIDE 23.3 pg/mL (0-100)
[2022-10-06] MEDS: levoFLOXacin IV 750 MG/150 ML BAG 100 MG IV (08:40)
--- NOTE | 2022-10-06 08:50 | NURSING ---
MED SURG TERELETS[place]ONIETTA HYPOXEMIA, DYSPNEA
--- NOTE | 2022-10-06 09:34 | NURSING ---
CALLED MARYLOU PICKENS. LEFT A MESSAGE WITH BED CONTROL.
[2022-10-06] MEDS: Acetaminophen 325 MG Tablet 650 MG PO (11:49)
[2022-10-06] MEDS: oxyCODONE 5 MG Tablet PO ×2 (11:49→17:44)
[2022-10-06] MEDS: 0.9% Saline Lock 10 ML Syringe IV (11:50)
[2022-10-06] MEDS: Benztropine Mesylate 0.5 MG TABLET 1 MG PO ×2 (11:51→21:19)
[2022-10-06] MEDS: Finasteride 5 MG Tablet PO (11:51)
[2022-10-06] MEDS: APIXABAN 5 MG TABLET PO ×2 (11:51→21:19)
[2022-10-06] MEDS: busPIRone 5 MG Tablet PO ×2 (11:51→21:19)
[2022-10-06] MEDS: Acetaminophen 500 MG Tablet 1000 MG PO (17:45)
[2022-10-06] MEDS: NYSTATIN 500,000 UNIT/5 ML UDC 500000 UNIT PO ×2 (17:45→21:19)
--- NOTE | 2022-10-06 18:01 | PCM.HP.STD ---
HPI - General General Date of Admission: 10/06/22 Date of Service: 10/06/22 Chief Complaint: Shortness of breath HPI Narrative DMITRI JACOBS, is a 72 M who presents to the emergency room at [facility] with a chief complaint of shortness of breath x2 days. Patient is a poor informant. Patient denies any fever or chills, he states he has a nonproductive cough. He has a Mediport visible, when I asked the patient why he had this Mediport, he told me he has cancer, he then told me he does not know what kind of cancer he has and he has not received any chemotherapy. It appears from patient's medical record that he has a history of rectal cancer that was diagnosed about July of this year, this is poorly differentiated adenocarcinoma, patient has been transferred to the [facility] for further care in July of this year when I had taken care of him in the hospital here. 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 He follows up with the [place] Work-up in the emergency room included a chest x-ray which showed bilateral infiltrates, patient recently had a PE diagnosed on 09/13/2022. He is taking Eliquis chronically. Patient's white blood cell count was unremarkable, he required 2 L of nasal cannula oxygen to maintain his pulse ox above 90%. Patient has a chronic Mccloud catheter due to urinary retention. Patient will be admitted to PCU for bilateral pneumonia, a respiratory panel was ordered on the patient, patient's rapid COVID test was negative. 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 Arthritis Bipolar disorder Difficulty balancing Fatigue Hemorrhoid Incontinence Pulmonary embolism Rectal cancer Sepsis Weakness Home Medications benztropine 2 mg tablet 1 mg PO BID Check with primary doctor 07/15/20 [History Last Taken 09/12/22] finasteride 5 mg tablet 5 mg PO DAILY Check with primary doctor 12/08/21 [History Last Taken 09/12/22] tamsulosin 0.4 mg capsule 0.8 mg PO QHS Check with primary doctor 12/08/21 [History Last Taken 09/12/22] buspirone 5 mg tablet 5 mg PO BID Check with primary doctor 07/02/22 [History Last Taken 09/12/22] glucosamine sulfate dipotassium Cl 500 mg-chondroitin 400 mg capsule (Glucosamine-Chondroitin DS) 2 cap PO DAILY pain 08/10/22 [History Last Taken 09/12/22] paliperidone palmitate 234 mg/1.5 mL intramuscular syringe 234 mg IM QMONTH Check with primary doctor 08/10/22 [History Last Taken Unknown] multivitamin 1 tab PO DAILY SUPPLEMENT 09/13/22 [History Last Taken 09/12/22] apixaban 5 mg (74 tabs) tablets in a dose pack (Eliquis DVT-PE Treat 30D Start) 5 mg PO BID #74 tabs 09/15/22 [Rx Last Taken Unknown] oxycodone 5 mg tablet 5 mg PO Q4H PRN PRN Pain Score 4-10 3 days #18 tabs 09/15/22 [Rx Last Taken Unknown] nitrofurantoin monohydrate/macrocrystals 100 mg capsule 100 mg PO Q12 #14 CAPSULES 09/29/22 [Rx Last Taken Unknown] acetaminophen 500 mg tablet 1,000 mg PO Q6H PRN pain 10/06/22 [History Last Taken Unknown] lactulose 10 gram/15 mL oral solution 15 ml PO DAILY PRN Constipation 10/06/22 [History Last Taken Unknown] lidocaine-collagen 2 % topical gel (Regenecare) 1 applic topical TID wound healing 10/06/22 [History Last Taken Unknown] nystatin 100,000 unit/mL oral suspension 5 ml PO 4X/DAY thrush 10/06/22 [History Last Taken Unknown] ondansetron 4 mg disintegrating tablet 4 mg PO Q8H PRN Nausea 10/06/22 [History Last Taken Unknown] polyethylene glycol 3350 17 gram oral powder packet (Miralax) 17 g PO DAILY constipation 10/06/22 [History Last Taken Unknown] sennosides 8.6 mg PO/SL DAILY constipation 10/06/22 [History Last Taken Unknown] Allergy/AdvReac Type Severity Reaction Status Date / Time trifluoperazine Allergy Cramping Verified 09/26/22 14:27 [From Stelazine] Family History Other Cancer Heart disease Surgical History History of tooth extraction Social History Smoking Status: Former smoker Tobacco: How many years used: 50 alcohol intake: never ROS ROS Narrative Review of systems from the patient is unreliable due to the patient's chronic mental problems (schizophrenia), information was obtained from the patient's medical record for this H&P. Vital Signs Vital Signs Vital Signs: 10/06/22 00:47 10/06/22 01:13 10/06/22 02:13 Temperature 98.0 F Temperature Source Oral Pulse Rate 111 H Respiratory Rate 20 H Respiratory Effort Short of Breath Respiratory Depth Normal Respiratory Pattern Tachypnea Blood Pressure 128/102 H Blood Pressure [BP] Blood Pressure Mean 110 Blood Pressure Mean [BP] Blood Pressure Source Blood Pressure Source [BP] Blood Pressure Position Blood Pressure Position [BP] Blood Pressure Location Blood Pressure Location [BP] Pulse Ox 92 98 Oxygen Delivery Method Room Air Nasal Cannula Nasal Cannula Oxygen Flow Rate (L/min) 3 3 10/06/22 05:55 10/06/22 07:56 10/06/22 09:11 Temperature 96.8 F L Temperature Source Temporal Pulse Rate 105 H 107 H 113 H Respiratory Rate 15 20 H 22 H Respiratory Effort Respiratory Depth Respiratory Pattern Blood Pressure 116/81 H 126/81 H 117/97 H Blood Pressure [BP] Blood Pressure Mean 92 96 103 Blood Pressure Mean [BP] Blood Pressure Source Blood Pressure Source [BP] Blood Pressure Position Blood Pressure Position [BP] Blood Pressure Location Blood Pressure Location [BP] Pulse Ox 97 93 95 Oxygen Delivery Method Room Air Room Air Nasal Cannula Oxygen Flow Rate (L/min) 2 10/06/22 10:18 10/06/22 11:38 10/06/22 11:38 Temperature 97.3 F L Temperature Source Oral Pulse Rate 98 Respiratory Rate 18 24 H Respiratory Effort Short of Breath Respiratory Depth Respiratory Pattern Blood Pressure Blood Pressure [BP] 142/68 H Blood Pressure Mean Blood Pressure Mean [BP] 92 Blood Pressure Source Blood Pressure Source [BP] Monitor Blood Pressure Position Blood Pressure Position [BP] Semi-Fowlers Blood Pressure Location Blood Pressure Location [BP] Right Arm Pulse Ox 97 98 98 Oxygen Delivery Method Nasal Cannula Nasal Cannula Nasal Cannula Oxygen Flow Rate (L/min) 2 2 2 10/06/22 13:10 10/06/22 11:00 10/06/22 15:00 Temperature 97.9 F Temperature Source Oral Pulse Rate 105 H Respiratory Rate 18 Respiratory Effort Non-Labored Short of Breath Short of Breath Respiratory Depth Normal Respiratory Pattern Normal Blood Pressure 106/82 H Blood Pressure [BP] Blood Pressure Mean 90 Blood Pressure Mean [BP] Blood Pressure Source Monitor Blood Pressure Source [BP] Blood Pressure Position Semi-Fowlers Blood Pressure Position [BP] Blood Pressure Location Right Arm Blood Pressure Location [BP] Pulse Ox 94 Oxygen Delivery Method Nasal Cannula Nasal Cannula Nasal Cannula Oxygen Flow Rate (L/min) 2 2 2 10/06/22 17:50 Temperature 98 F Temperature Source Oral Pulse Rate 108 H Respiratory Rate 20 H Respiratory Effort Respiratory Depth Respiratory Pattern Blood Pressure 132/86 H Blood Pressure [BP] Blood Pressure Mean 101 Blood Pressure Mean [BP] Blood Pressure Source Monitor Blood Pressure Source [BP] Blood Pressure Position Semi-Fowlers Blood Pressure Position [BP] Blood Pressure Location Right Arm Blood Pressure Location [BP] Pulse Ox 95 Oxygen Delivery Method Nasal Cannula Oxygen Flow Rate (L/min) 2 Weight Weight: 77.1 kg Body Mass Index (BMI) 23.7 Physical Exam Const alert, no apparent distress and average body habitus Constitutional Narrative: Patient appears unkempt, hygiene is poor, he is alert asked to person and place, he is a poor informant HEENT normocephalic and head/scalp atraumatic Neck supple and no JVD Resp normal respiratory effort, no retractions and no use of accessory muscles Resp Narrative: Auscultation of the lungs reveal decreased breath sounds bilaterally, no rales or rhonchi or wheezes were noted. Patient is on supplemental oxygen at 2 L/min Cardio regular rate, regular rhythm, S1 normal heart sound, S2 normal heart sound, no murmurs and no rub GI normal to inspection, nondistended, normoactive bowel sounds, soft to palpation and non-tender Extremity Extremity Narrative: Patient's entire left leg is swollen as compared with his right leg. There is noted to be excoriation in the left groin area, there is noted to be lymphadenopathy in the left groin area. Skin Skin Narrative: Patient's left groin area is excoriated Neuro CN's II-XII intact bilaterally Neuro Narrative: Patient has a resting tremor noted Sensorium / Orientation: awake, alert, oriented to person and oriented to place Psych Psych Narrative: Patient's affect is flat, he is able to answer some questions appropriately, he is oriented as to person and place Results Lab / Micro Data Result Diagrams: 10/06/22 01:30 10/06/22 01:30 Labs: Laboratory Results - last 24 hr 10/06/22 01:30: WBC 8.4, RBC 3.98 L, Hgb 10.3 L, Hct 33.7 L, MCV 84.7, MCH 25.9 L, MCHC 30.6 L, RDW Std Deviation 43.9, RDW Coeff of Edi 14.3, Plt Count 430, MPV 8.3, Immature Gran % (Auto) 0.600, Neut % (Auto) 74.5 H, Lymph % (Auto) 13.4 L, [place] % (Auto) 9.6, Eos % (Auto) 1.4, Baso % (Auto) 0.5, Absolute Neuts (auto) 6.3, Absolute Lymphs (auto) 1.13, Nucleated RBC % 0 10/06/22 01:30: Sodium 136, Potassium 3.9, Chloride 102, Carbon Dioxide 26.0, Anion Gap 8, BUN 11, Creatinine 0.59 L, Estim Creat Clear Calc 71.12, Est GFR (MDRD) Af Amer 174, Est GFR (MDRD) Non-Af 143, BUN/Creatinine Ratio 18.6, Glucose 117 H, Calcium 8.8, Troponin I High Sens 31 10/06/22 01:30: B-Natriuretic Peptide 23.3 Micro: Microbiology 10/06/22 10:50 Sputum, Expectorated/Coughed Gram Stain - Final 10/06/22 13:20 Urine Catheter - Mccloud Legionella Antigen - Final 10/06/22 13:20 Urine Catheter - Mccloud Streptococcus pneumoniae Antigen (M - Final 10/06/22 09:20 Mucosa - Nasopharyngeal Respiratory Panel (PCR) - Final 10/06/22 09:20 Nasal Secretion SARS-CoV-2 Antigen (Rapid) - Final Rhythm Strip Rhythm Strip: Sinus Tach Rate: 107 Ectopy: None Radiology Impression Chest X-Ray 10/06/22 01:48 IMPRESSION: 1. Port-A-Cath in place. 2. Bilateral pulmonary infiltrates, which may represent CHF with pulmonary edema or an inflammatory or atypical infectious process. 3. Redemonstration of hilar prominence, consistent with recently demonstrated mediastinal and hilar lymphadenopathy. Electronically Signed: Donovan Sarkar MD at 2:24 EDT , Assessment & Plan Assessment/Plan (1) Pneumonia: PLAN: Plan 1. Bilateral community-acquired pneumonia-etiology unclear at this point, patient will be admitted to [facility], he was placed on IV Levaquin, sputum culture will be obtained, respiratory panel was ordered. At this time I do not feel that pulmonary medicine needs to see the patient, he will be reevaluated tomorrow. Patient will be placed on aerosol treatments. 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 Patient's son-in-law states that the patient is scheduled to see Dr. Cuba this Tuesday for an office visit to start either chemo or radiation. I will discuss the case with Dr. Cuba. #3 chronic obstructive uropathy-patient has a indwelling Mccloud in place #4 chronic schizophrenia-complicates care, medical course, recovery, and prognosis #5 tardive dyskinesia-secondary to chronic psychiatric medications, patient is on Cogentin #6 chronic anticoagulation secondary to past history of PE-patient will remain on Eliquis #7 hypoxia secondary to #1 with an overlying of recent pulmonary embolism-patient's pulse ox will be monitored Total clinical time spent by myself addressing the patient's medical issues, reviewing all of his data, and collaborating with patient's care team: 75 minutes Charges/Coding Visit Charges Inpatient E&M: 15436 Init Hosp L3
--- NOTE | 2022-10-06 18:29 | CT_ITS ---
STUDY: CT CHEST, ABDOMEN T PELVIS WITH CONTRAST REASON FOR EXAM: Male, 72 years old. Metastatic rectal cancer -- CT with oral and IV contrast RADIATION DOSAGE (If Supplied By Facility): CTDIvol = ( 15.49 ) mGy, DLP = ( 1616.32 ) mGycm TECHNIQUE: Transaxial imaging was performed following intravenous administration of IV 100mL Isovue-370. Individualized dose optimization techniques were used for this CT. COMPARISON: 08/11/2022, 09/13/2022 FINDINGS: CHEST Hyperexpansion of lungs consistent with COPD. Diffuse interstitial prominence most likely fibrosis and/or interstitial edema. Extensive bilateral widespread irregular pulmonary opacities throughout both lungs very difficult to measure but ranging from a few millimeters to as much as 2.1 cm greatest dimension. This is a significant change since the exam of only 3 weeks prior. Findings could represent severe aggressive pulmonary metastatic disease. An atypical inflammatory process or chemotherapy reaction is also possible. There are bilateral small pleural effusions which are also new since prior exam. There is worsening of moderate to severe mediastinal and hilar adenopathy. As examples, a right paratracheal lymph node now measures 4.9 cm greatest dimension versus 3.8 cm previously. Extensive infiltrating mass throughout the mediastinum, subcarinal space, and into both jennifer is also significantly worse. Normal heart and pericardium. There is a small pericardial effusion. Normal unenhanced pulmonary arteries. Normal aorta arch and descending thoracic aorta. Normal osseous structures. ABDOMEN and pelvis Normal liver. There are multiple gallstones. There are multiple benign calcified granulomata of the spleen. Normal pancreas. Normal bilateral adrenal glands. Normal right kidney. Normal left kidney. Normal visualized stomach. Normal small intestine. Normal colon. There is non-visualization of the appendix. There is diffuse atherosclerotic calcification of the abdominal aorta, without a demonstrated aneurysm. Normal inferior vena cava. Marked worsening of retroperitoneal adenopathy. Worsening of right retrocrural adenopathy. Worsening of primary left-sided confluent adenopathy extending to the bifurcation, into the left iliac lymph nodes and left pelvic sidewall. Adenopathy then extends into the left inguinal region where there is no mass as much as 8.1 cm greatest dimension, much worse than prior exam. There are engorged lymphatics indicating lymphatic obstruction and there is asymmetric edema of the visualized left thigh. Significantly lesser degrees of right inguinal adenopathy but still significantly worse than prior study. There is a Mccloud catheter in bladder. There is thickening of the bladder wall. Normal abdominal wall. There are diffuse degenerative changes of the visualized lumbar spine. CT/CT Chest, Abd, Pel w/Contrast IMPRESSION: Marked worsening since prior study. Marked abnormality throughout the lungs consistent with extensive and widespread metastatic disease and/or inflammatory process. Marked worsening of thoracic adenopathy. Bilateral small pleural effusions are new. Marked worsening of adenopathy throughout the retroperitoneum and pelvis especially on the left since previous study. Indirect findings consistent with severe lymphatic obstruction of the left lower extremity. Electronically Signed: Casa Berger MD at 21:36 EDT ,
[2022-10-06] MEDS: Ipratropium/Albuterol Sulfate 3 ML AMPUL.NEB INHALATION (19:45)
[2022-10-07] VITALS (7 sets, daily range): BP systolic 131–146; BP diastolic 68–84; PULSE 82–118; RESP 17–20; TEMP 36.4–36.8; O2SAT 94–98
[2022-10-07] MEDS: oxyCODONE 5 MG Tablet PO ×4 (00:07→17:52)
[2022-10-07] MEDS: Ipratropium/Albuterol Sulfate 3 ML AMPUL.NEB INHALATION ×2 (00:25→07:18)
[2022-10-07 05:35] LABS: Absolute Neutrophil Count 5.8 X10^3/uL (2.0-7.7); Basophil# 0.05 X10^3/uL; Basophil% 0.6 % (0-1); Eosinophil# 0.19 X10^3/uL; Eosinophils% 2.4 % (0-5); Hematocrit 33.2 % (40-54); Hemoglobin 10.4 g/dL (13.0-16.5); Lymphocyte % 12.5 % (19-41); Mean Corp Hgb Conc 31.3 g/dL (32-36); Mean Corpuscular Hgb 26.3 pg (27.0-32.0); Mean Corpuscular Volume 84.1 fL (80-94); Mean Platelet Vol. 8.4 fl (6.2-12.0); Monocyte# 0.86 X10^3/uL; Monocyte% 10.8 % (0-10); NRBC Flagged by Analyzer 0 % (0-5); Neutrophil # 5.84 X10^3/uL (2.7-7.7); Neutrophil % 72.9 % (47-70); Platelet Count 418 K/mm3 (150-450); RBC Distribution Width CV 14.4 % (11.6-14.6); RBC Distribution Width SD 44.2 fl (35.1-43.9); Red Blood Count 3.95 M/mm3 (4.6-6.2)
[2022-10-07 06:09] LABS: Anion Gap 5 (5-15); BUN 7 mg/dL (7-18); BUN/Creat Ratio 13.8 RATIO (10-20); Calcium,Total 8.3 mg/dL (8.5-10.1); Chloride 104 mmol/L (98-107); Creatinine, Serum 0.51 mg/dL (0.70-1.30); EST Glomerular Filtration Rate 170 mL/min (>60); Est Glom Filt Rate - Afr Amer 206 mL/min (>60); Estimated Creatinine Clearance 71.12 ml/min; Glucose 123 mg/dL (74-106); Potassium 3.8 mmol/L (3.5-5.1); Sodium Level 136 mmol/L (136-145)
[2022-10-07 08:38] LABS: AST(SGOT) 32 U/L (15-37); Alanine Aminotransfer ALT/SGPT 27 U/L (16-61); Albumin, Serum 2.6 g/dL (3.2-5.0); Alkaline Phosphatase 192 U/L (45-117); Bilirubin, Direct 0.11 mg/dL (0.00-0.30); Globulin 4.4 g/dL (2.2-4.2)
--- NOTE | 2022-10-07 10:09 | CASEMGMT ---
Sw presented to bedside to complete SDOH assessment with patient. Patient asleep but awoke when sw entered room. Visitor at bedside stated that patient had a bad night/ morning and is resting. Sw offered to return to room later, patient nodded head in agreement. Octavio Adair, MANUFACTURING QUALITY ENGINEER, MANAGER NICU
[2022-10-07] MEDS: Finasteride 5 MG Tablet PO (10:36)
[2022-10-07] MEDS: busPIRone 5 MG Tablet PO ×2 (10:36→21:18)
[2022-10-07] MEDS: NYSTATIN 500,000 UNIT/5 ML UDC 500000 UNIT PO ×2 (10:36→13:26)
[2022-10-07] MEDS: Benztropine Mesylate 0.5 MG TABLET 1 MG PO ×2 (10:36→20:25)
[2022-10-07] MEDS: levoFLOXacin IV 750 MG/150 ML BAG 100 MG IV (10:36)
[2022-10-07] MEDS: APIXABAN 5 MG TABLET PO ×2 (10:36→20:26)
[2022-10-07] MEDS: 0.9% Saline Lock 10 ML Syringe IV ×2 (10:59→13:28)
[2022-10-07] MEDS: ALPRAZolam 0.5 MG Tablet PO ×2 (11:13→20:24)
--- NOTE | 2022-10-07 11:44 | WOUNDNOTE ---
skin photo: left groin
--- NOTE | 2022-10-07 12:13 | CASEMGMT ---
Sw met with patient at bedside to complete SDOH assessment. Patient answered questions, indicating concerns for mice in the home and that his son talks down to him from time to time. Sw offered to provide resources, patient denied need at this time. Octavio Adair, DEVELOPER [employer]PH[employer]ING, SEO MARKETING SPECIALIST
--- NOTE | 2022-10-07 13:24 | WOUNDNOTE ---
Had been asked to see patient for edema and erythema to the left groin. patient has known metastatic rectal cancer. patient has not had any type of treatment for the cancer. the CT scan confirms that the cancer has extensively spread. barrier cream can be applied to the miguel angel anal area. pt did not want this nurse to assess the miguel angel anal area at this time. the left groin very indurated and firm. tender to touch. gently cleansed with soap and water. pat dry. there are no large open areas noted to the groin. will monitor. Dr Betancourt states his plan is to transfer patient to the [place].
[2022-10-07] MEDS: Acetaminophen 500 MG Tablet 1000 MG PO (13:25)
[2022-10-07] MEDS: Lidocaine/Prilocaine HCl 5 GM Tube TOPICAL (13:27)
--- NOTE | 2022-10-07 14:15 | CASEMGMT ---
Addendum entered by Yolanda Tucker 10/07/22 16:19: RITCHIE BAIG callled son in law and daughter regarding transfer. Original Note: RITCHIE BAIG received call from [facility] at the [place] transfer center. Patient has been accepted for transfer to the oncology unit. Per [facility] patient will need Covid PCR, set of vital signs, imaging on disk, and request to transfer. Per [facility], accepting physician is Dr Sharon lopez will go to [facility], number to call report is [phone]. Per [facility] 6pm. RITCHIE BAIG received request to transfer from [facility] and will complete and fax information to [phone]. RITCHIE BAIG updated nurse, social media community manager, and hospitalist. [facility] will continue to follow patient and plan for a safe transfer.
--- NOTE | 2022-10-07 15:53 | DS.PCM_ITS ---
Providers Date of Admission: 10/06/22 Date of Discharge: 10/07/22 Primary Care Physician: [facility] Consultations 10/06/22 15:23 Consult: Onc/Wound/design sales consultant Routine Comment: Reason for Consult:: left groin wound 10/06/22 18:35 Consult: Oncology/Hematology Routine Consulting Provider: MOUSTAPHA Hem/Onc Shiela Reason for Consult: Metastatic rectal cancer EMERGENT Consult: No MD Notified: Yes Date Notified: 10/06/22 Time Notified: 18:35 Method of Notification: Verbal Method of Consult:: In-Person Reason For Visit: HYPOXEMIA Diagnosis Discharge Diagnosis (1) Pneumonia: Status: Acute Code(s): J18.9 - Pneumonia, unspecified organism Plan 1. 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 Patient's son-in-law states that the patient is scheduled to see Dr. Cuba this Tuesday for an office visit to start either chemo or radiation. I will discuss the case with Dr. Cuba. #3 chronic obstructive uropathy-patient has a indwelling Mccloud in place #4 chronic schizophrenia-complicates care, medical course, recovery, and prognosis #5 tardive dyskinesia-secondary to chronic psychiatric medications, patient is on Cogentin #6 chronic anticoagulation secondary to past history of PE-patient will remain on Eliquis #7 hypoxia secondary to #1 with an overlying of recent pulmonary embolism-rocky ent's pulse ox will be monitored Community-acquired pneumonia was ruled out at the time of discharge Total clinical time spent by myself addressing the patient's medical issues, reviewing all of his data, and collaborating with patient's care team: 75 minutes Medications at Discharge Home Medications benztropine 2 mg tablet 1 mg PO BID Check with primary doctor 07/15/20 finasteride 5 mg tablet 5 mg PO DAILY Check with primary doctor 12/08/21 tamsulosin 0.4 mg capsule 0.8 mg PO QHS Check with primary doctor 12/08/21 buspirone 5 mg tablet 5 mg PO BID Check with primary doctor 07/02/22 glucosamine sulfate dipotassium Cl 500 mg-chondroitin 400 mg capsule (Glucosamine-Chondroitin DS) 2 cap PO DAILY pain 08/10/22 paliperidone palmitate 234 mg/1.5 mL intramuscular syringe 234 mg IM QMONTH Check with primary doctor 08/10/22 multivitamin 1 tab PO DAILY SUPPLEMENT 09/13/22 apixaban 5 mg (74 tabs) tablets in a dose pack (Eliquis DVT-PE Treat 30D Start) 5 mg PO BID #74 tabs 09/15/22 oxycodone 5 mg tablet 5 mg PO Q4H PRN PRN Pain Score 4-10 3 days #18 tabs 09/15/22 nitrofurantoin monohydrate/macrocrystals 100 mg capsule 100 mg PO Q12 #14 CAPSULES 09/29/22 acetaminophen 500 mg tablet 1,000 mg PO Q6H PRN pain 10/06/22 lactulose 10 gram/15 mL oral solution 15 ml PO DAILY PRN Constipation 10/06/22 lidocaine-collagen 2 % topical gel (Regenecare) 1 applic topical TID wound healing 10/06/22 nystatin 100,000 unit/mL oral suspension 5 ml PO 4X/DAY thrush 10/06/22 ondansetron 4 mg disintegrating tablet 4 mg PO Q8H PRN Nausea 10/06/22 polyethylene glycol 3350 17 gram oral powder packet (Miralax) 17 g PO DAILY cons tipation 10/06/22 sennosides 8.6 mg PO/SL DAILY constipation 10/06/22 Hospital Course Operations None Procedures None Summary of Care Provided Minutes Spent on Discharge: 32 Hospital Course: 72-year-old white male was seen in the emergency room at [facility] with a chief complaint of 2 days of progressive shortness of breath. Patient had been diagnosed in July 2022 with poorly differentiated adenocarcinoma of the rectum, he had undergone a lymph node biopsy of the groin area and it was noted that these were positive for cancer. Patient was seen earlier in September 2022 in the emergency room and during a work-up it was discovered he had a pulmonary embolism and he was placed on anticoagulants. Patient has a long history of schizophrenia. Work-up in the emergency room included a chest x-ray which showed bilateral pulmonary infiltrates believed the first to be possible community-acquired pneumonia, patient's white blood cell count however was normal and he was afebrile. Patient was admitted to PCU, he was placed on IV antibiotics, he was seen in consultation by oncology and a CT of the chest and abdomen and pelvis was performed which showed evidence of metastatic spread of his rectal cancer to the lungs and pelvic area. It was felt that the best course would be to transfer the patient to the [facility] for immediate treatment with chemotherapy, on 10/07/2022, I found the [facility] transfer line in [facility] to transfer the patient to the [facility] there. They did accept the patient for treatment. On 10/07/2022, patient was seen and examined:alert, no apparent distress and average body habitus Constitutional Narrative: Patient appears unkempt, hygiene is poor, he is alert asked to person and place, he is a poor informant HEENT normocephalic and head/scalp atraumatic Neck supple and no JVD Resp normal respiratory effort, no retractions and no use of accessory muscles Resp Narrative: Auscultation of the lungs reveal decreased breath sounds bilaterally, no rales or rhonchi or wheezes were noted.? Patient is on supplemental oxygen at 2 L/min Cardio regular rate, regular rhythm, S1 normal heart sound, S2 normal heart sound, no murmurs and no rub GI normal to inspection, nondistended, normoactive bowel sounds, soft to palpation and non-tender Extremity Extremity Narrative: Patient's entire left leg is swollen as compared with his right leg.? There is noted to be excoriation in the left groin area, there is noted to be lymphadenopathy in the left groin area. Skin Skin Narrative: Patient's left groin area is excoriated Neuro CN's II-XII intact bilaterally Neuro Narrative: Patient has a resting tremor noted Sensorium / Orientation: awake, alert, oriented to person and oriented to place Psych Psych Narrative: Patient's affect is flat, he is able to answer some questions appropriately, he is oriented as to person and place Patient appears stable for transfer to the [facility] in [facility] on 10/07/2022 for further treatment. Weight / BMI Weight Weight: 77.1 kg Body Mass Index (BMI) 23.7 ABG / Lab / Microbiology Data Result Diagrams: 10/07/22 05:21 10/07/22 05:21 Laboratory: Laboratory Results - last 24 hr 10/07/22 05:21: WBC 8.0, RBC 3.95 L, Hgb 10.4 L, Hct 33.2 L, MCV 84.1, MCH 26.3 L, MCHC 31.3 L, RDW Std Deviation 44.2 H, RDW Coeff of Edi 14.4, Plt Count 418, MPV 8.4, Immature Gran % (Auto) 0.800, Neut % (Auto) 72.9 H, Lymph % (Auto) 12.5 L, Eaton % (Auto) 10.8 H, Eos % (Auto) 2.4, Baso % (Auto) 0.6, Absolute Neuts (auto) 5.8, Absolute Lymphs (auto) 1.00, Nucleated RBC % 0 10/07/22 05:21: Sodium 136, Potassium 3.8, Chloride 104, Carbon Dioxide 27.0, Anion Gap 5, BUN 7, Creatinine 0.51 L, Estim Creat Clear Calc 71.12, Est GFR (MDRD) Af Amer 206, Est GFR (MDRD) Non-Af 170, BUN/Creatinine Ratio 13.8, Glucose 123 H, Calcium 8.3 L 10/07/22 05:51: Total Bilirubin 0.30, Direct Bilirubin 0.11, AST 32, ALT 27, Alkaline Phosphatase 192 H, Total Protein 7.0, Albumin 2.6 L, Globulin 4.4 H Microbiology: Microbiology 10/06/22 10:50 Sputum, Expectorated/Coughed Gram Stain - Final 10/06/22 13:20 Urine Catheter - Mccloud Legionella Antigen - Final 10/06/22 13:20 Urine Catheter - Mccloud Streptococcus pneumoniae Antigen (M - Final 10/06/22 09:20 Mucosa - Nasopharyngeal Respiratory Panel (PCR) - Final 10/06/22 09:20 Nasal Secretion SARS-CoV-2 Antigen (Rapid) - Final Radiography Diagnostic Testing: Radiology Impression Chest/Abdomen/Pelvis CT 10/06/22 18:29 IMPRESSION: Marked worsening since prior study. Marked abnormality throughout the lungs consistent with extensive and widespread metastatic disease and/or inflammatory process. Marked worsening of thoracic adenopathy. Bilateral small pleural effusions are new. Marked worsening of adenopathy throughout the retroperitoneum and pelvis especially on the left since previous study. Indirect findings consistent with severe lymphatic obstruction of the left lower extremity. Electronically Signed: Casa Berger MD at 21:36 EDT , Meaningful Use Info Meaningful Use Diagnoses (Choose all that apply): None applicable Discharge Plan Admission Admit Date/Time: 10/06/22 09:21 Attending Provider: Johnny Jorgensen Primary Care Provider: [facility] Consulting Providers: Angelo Welch ; Dedra Arellano ; Dusty Garcia ; Derik Sarah ; Emmanuel Cuba Discharge Orders/Prescriptions Prescriptions: No Action buspirone 5 mg tablet 5 mg PO BID benztropine 2 MG tablet 1 mg PO BID tamsulosin 0.4 mg Capsule 0.8 mg PO QHS finasteride 5 mg Tablet 5 mg PO DAILY Glucosamine-Chondroitin DS 500-400 mg Capsule 2 cap PO DAILY Rx Instructions: give with meal/snack paliperidone palmitate 234 mg/1.5 mL Syringe 234 mg IM QMONTH multivitamin Tablet 1 tab PO DAILY oxycodone 5 mg Tablet 5 mg PO Q4H PRN PRN (Reason: Pain Score 4-10) 3 Days Qty: 18 0RF Eliquis DVT-PE Treat 30D Start 5 mg (74 tabs) tablets,dose pack 5 mg PO BID Qty: 74 0RF Rx Instructions: take 2 tabs (10mg) twice daily for 7 days (till 09/21/2022), then continue with one tablet (5mg) twice daily nitrofurantoin monohyd/m-cryst [nitrofurantoin monohyd/m-cryst] 100 mg capsule 100 mg PO Q12 Qty: 14 0RF nystatin 100,000 unit/mL Suspension 5 ml PO 4X/DAY Rx Instructions: swish and swallow polyethylene glycol 3350 [Miralax] 17 gram Powder In Packet 17 g PO DAILY acetaminophen [Tylenol Ex Str Rapid Release] 500 mg Tablet 1,000 mg PO Q6H PRN (Reason: pain) ondansetron 4 mg Tablet,Disintegrating 4 mg PO Q8H PRN (Reason: Nausea) lactulose 10 gram/15 mL Solution 15 ml PO DAILY PRN (Reason: Constipation) Regenecare 2 % Gel 1 applic TOPICAL TID sennosides 8.6 mg 8.6 mg PO/SL DAILY Referrals / Follow [facility]: [facility] - 3-5 Days Disposition Discharge Orders: Discharge Patient (Routine); Ordered 10/07/22 Ordered By: Dr. Johnny Jorgensen Charges/Coding Visit Charges Inpatient E&M: 84272 Disch Hosp >30min
--- NOTE | 2022-10-07 20:18 | NURSING ---
Report called to Mahsa Rivera RN at [facility] for transfer at this time. Reviewed recent vital signs and physician documentation for transfer with nurse. All questions answered at this time.
--- NOTE | 2022-10-07 22:31 | NURSING ---
CALLED [facility] WITH UPDATE RE TRANSFER AT THIS TIME. PT IS LEAVING NOW WITH [facility]ERSON[facility] BELONG[facility] AT THIS TIME
== END 2022-10-07 22:37 | disposition short-term general hospital (02) | DRG 193 ==
LOC: ED 08:50 → PCU 10:08
PROVIDERS: Admitting Provider Internal Medicine; Emergency Provider Emergency Medicine; Visit Provider Internal Medicine
DX: J18.9 Pneumonia, unspecified organism (principal); I26.99 Other pulmonary embolism without acute cor pulmonale; C79.51 Secondary malignant neoplasm of bone; C77.5 Secondary and unspecified malignant neoplasm of intrapelvic lymph nodes; C20 Malignant neoplasm of rectum; C78.00 Secondary malignant neoplasm of unspecified lung; J90 Pleural effusion, not elsewhere classified; D64.9 Anemia, unspecified; F20.9 Schizophrenia, unspecified; G24.01 Drug induced subacute dyskinesia; Z87.891 Personal history of nicotine dependence; Z86.711 Personal history of pulmonary embolism; N13.9 Obstructive and reflux uropathy, unspecified; R09.02 Hypoxemia; Z92.21 Personal history of antineoplastic chemotherapy; Z79.01 Long term (current) use of anticoagulants
CPT/HCPCS: 36415; 71045; 71260; 74177; 80048; 80076; 83880; 84484; 85025; 87070; 87205; 87449; 87633; 87635; 87811; 93005; 94640; 94668; 97802; 99252; 99285; 99406; Q9967; A4216; G0463; U0005